=== PATIENT | male | born 1945 | race Caucasian/White ===

== ENCOUNTER → 2016-09-08 | Outpatient (CLI) | payer MEDICARE ==
[~2016-09-08] MED LIST: /GLYB5TA PO; ASPI325T PO; GLUC1000 PO; LISI20TA5 OR; NICO7DIS4 TD; NORV5TAB OR; PLAV75TA2 OR; TOPR50TA PO; ZOCO10TA PO; [UNRECOGNIZED DRUG - CODE] PO
--- NOTE | 2016-09-09 15:23 | REP ---
PET/CT: HISTORY: Initial staging lung cancer. COMPARISONS: Comparison chest CT study August 09, 2016 shows an anterior mediastinal mass 2.8 cm in greatest diameter. TECHNIQUE: 65 minutes following the intravenous injection of a 7.2 mCi dose of F-18 FDG, three-dimensional PET scintigraphy is acquired from the skull base to the proximal thighs. Triplanar noncontrast CT scanning is acquired through the same anatomic range for attenuation correction, and image registration with scan parameters optimized to minimize radiation exposure to the patient. PET scintigraphy and CT datasets were fused and displayed on a workstation with multiplanar and projection display capability. PET/CT FINDINGS: Head and neck soft tissues are unremarkable. The known anterior mediastinal mass is again seen. There is no discernible FDG accumulation within it. Maximum standard uptake value 0.6. No other intrathoracic hypermetabolic uptake is seen. The thyroid gland is seen at the thoracic inlet and appears normal bilaterally. There is no discernible FDG accumulation in the thyroid in this patient either. In the abdomen and pelvis, there is normal hepatic, splenic, gastrointestinal, and genitourinary FDG accumulation. No abnormal hypermetabolic uptake is seen in the abdomen or pelvis. Prostate is somewhat enlarged contains a few dystrophic calcifications. No abnormal adrenal uptake is seen. IMPRESSION: The known anterior mediastinal mass shows no discernible FDG accumulation. This favors a benign or at least nonaggressive etiology. Signed by Danial Kearns MD 09/09/2016 03:30 P
== END ==
LOC: M RAD 11:08
PROVIDERS: ATTEND Physician Assistant Medical
DX: C34.90 Malignant neoplasm of unspecified part of unspecified bronchus or lung (principal)
CPT/HCPCS: 78815; A9552

== ENCOUNTER → 2016-10-11 | Outpatient (CLI) | payer MEDICARE ==
[2016-10-11 10:31] LABS: BASO # 0.1 K/mm3 (0.0-0.2); BASO % 0.8 % (0.0-1.0); EOS # 0.2 K/mm3 (0.0-0.50); EOS % 1.9 % (0.0-3.0); LYMPH # 1.9 K/mm3 (1.5-4.5); LYMPH % 18.7 % (24.0-44.0); MEAN CORPUSCULAR HEMOGLOBIN 30.1 pg (27.0-33.0); MEAN CORPUSCULAR HGB CONC 32.2 g/dl (32.0-36.5); MEAN CORPUSCULAR VOLUME 93.4 fl (80.0-96.0); MONO # 0.6 K/mm3 (0.0-0.8); MONO % 6.1 % (0.0-5.0); NEUTROPHILS # 6.9 K/mm3 (1.8-7.7); NEUTROPHILS % 71.4 % (36.0-66.0); RED CELL DISTRIBUTION WIDTH 13.3 % (11.5-14.5); WHITE BLOOD COUNT 9.7 K/mm3 (4.0-10.0)
[2016-10-11 10:56] LABS: ALBUMIN 3.9 GM/DL (3.2-5.2); ALBUMIN/GLOBULIN RATIO 1.11 (1.00-1.93); ALKALINE PHOSPHATASE 93 U/L (45-117); ALT/SGPT 19 U/L (12-78); ANION GAP 9 MEQ/L (8-16); AST/SGOT 15 U/L (15-37); BILIRUBIN,TOTAL 0.3 MG/DL (0.2-1.0); BLOOD UREA NITROGEN 22 MG/DL (7-18); CALCIUM LEVEL 9.6 MG/DL (8.8-10.2); CARBON DIOXIDE LEVEL 26 MEQ/L (21-32); CHLORIDE LEVEL 109 MEQ/L (98-107); CHOLESTEROL LEVEL 141 MG/DL (<200); CREATININE FOR GFR 0.89 MG/DL (0.70-1.30); GLOMERULAR FILTRATION RATE > 60.0 (>49); GLUCOSE, FASTING 148 MG/DL (80-110); SODIUM LEVEL 144 MEQ/L (136-145); TOTAL PROTEIN 7.4 GM/DL (6.4-8.2); TRIGLYCERIDES LEVEL 105 MG/DL (<150)
== END ==
LOC: M LAB 09:49
PROVIDERS: ATTEND Physician Assistant Medical
DX: E11.9 Type 2 diabetes mellitus without complications (principal)

== ENCOUNTER → 2016-12-02 | Outpatient (CLI) | payer MEDICARE ==
[~2016-12-02] MED LIST changes: +ASPI1TAB PO; +GLIP5TAB15 PO; +METF1000 PO; +METO50TA2 PO; +SIMV40TA2 PO
[2016-12-02 10:15] LABS: ABG BASE EXCESS 0.5 (-2.0-2.0); ABG DEVICE ROOM AIR; ABG HCO3 24.6 MEQ/L (22.0-26.0); ABG PARTIAL PRESSURE CO2 38.3 mmHg (35.0-45.0); ABG STANDARD HCO3 24.9 MEQ/L (22.0-26.0); ABG TOTAL CO2 25.8 MEQ/L (23.0-31.0); ABG pH (ARTERIAL) 7.426 UNITS (7.350-7.450)
[2016-12-02 10:28] LABS: MEAN CORPUSCULAR HEMOGLOBIN 30.3 pg (27.0-33.0); MEAN CORPUSCULAR HGB CONC 33.3 g/dl (32.0-36.5); MEAN CORPUSCULAR VOLUME 91.2 fl (80.0-96.0); WHITE BLOOD COUNT 10.1 K/mm3 (4.0-10.0)
[2016-12-02 10:38] LABS: INR 0.95
[2016-12-02 10:46] LABS: ANION GAP 6 MEQ/L (8-16); BLOOD UREA NITROGEN 11 MG/DL (7-18); CALCIUM LEVEL 9.4 MG/DL (8.8-10.2); CARBON DIOXIDE LEVEL 30 MEQ/L (21-32); CHLORIDE LEVEL 105 MEQ/L (98-107); CREATININE FOR GFR 0.77 MG/DL (0.70-1.30); GLOMERULAR FILTRATION RATE > 60.0 (>49); GLUCOSE, FASTING 158 MG/DL (80-110); POTASSIUM SERUM 4.1 MEQ/L (3.5-5.1); SODIUM LEVEL 141 MEQ/L (136-145)
--- NOTE | 2016-12-02 11:00 | REP ---
Clinical: Abnormality. Technique: PA and lateral. Comparison: 06/11/2016. Findings: Mediastinum and cardiac silhouette are within normal limits and stable. The anterior mediastinal mass on recent chest CT is not visible by x-ray. The lung foster demonstrate chronic changes without acute consolidation, effusion, or pneumothorax. Skeletal structures intact. Impression: Stable changes. No acute cardiopulmonary process. Anterior mediastinal mass on recent chest CT not visible by x-ray. Signed by Pritesh Roberts MD 12/02/2016 10:52 A
--- NOTE | 2016-12-03 22:11 | ECGEPIP ---
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
== END ==
LOC: M ADMPAT 08:22
PROVIDERS: ATTEND Thoracic Surgery (Cardiothoracic Vascular Surgery)
DX: R91.8 Other nonspecific abnormal finding of lung field (principal)

== ENCOUNTER 2016-12-08 06:56 | Inpatient (IN) | payer MEDICARE ==
[2016-12-02 09:58] VITALS: BP 160/84
[~2016-12-08] VITALS: Ht 172.7 cm; Wt 109.8 kg
[2016-12-08] MEDS ORDERED: fentaNYL 250 MCG/5 ML INJECTION (J3010) As Ordered ONE (06:57)
[2016-12-08] MEDS ORDERED: MIDAZOLAM INJ 2 MG/2 ML VIAL (J2250) As Ordered ONE (06:57)
[2016-12-08] MEDS ORDERED: LIDOCAINE 2% INJ 100 MG/5 ML SDV (FOR ANES.) As Ordered ONE (07:01)
[2016-12-08] MEDS ORDERED: ROCURONIUM BROMIDE 50 MG/5 ML VIAL As Ordered ONE ×2 (07:01→08:47)
[2016-12-08] MEDS ORDERED: PROPOFOL 200 MG/20 ML VIAL As Ordered ONE (07:02)
[2016-12-08] MEDS ORDERED: LR 1,000 ML IV SCH ×2 (07:15→11:45)
[2016-12-08] MEDS ORDERED: BUPIVACAINE/EPIN 0.25% 30 ML VIAL As Ordered ONE (07:21)
[2016-12-08] MEDS ORDERED: BUPIVACAINE LIPOSOME/PF 1.3% 20 ML VIAL (13.3MG/ML)(EXPAREL) As Ordered ONE (07:21)
[2016-12-08] MEDS ORDERED: ceFAZolin SOD 1 GM in D5W MINI-BAG PLUS 50 ML IV ONE (07:45)
[2016-12-08] MEDS ORDERED: MUPIROCIN 2% OINT 22 GM TUBE TOP ONE (07:45)
[2016-12-08] MEDS ORDERED: METOPROLOL TART 25 MG TABLET As Ordered ONE (08:08)
[2016-12-08] MEDS ORDERED: MUPIROCIN 2% OINT 22 GM TUBE As Ordered ONE (08:41)
[2016-12-08] MEDS ORDERED: PANTOPRAZOLE 40MG INJ (PROTONIX) (C9113) IV SCH (09:00)
[2016-12-08] MEDS ORDERED: BUPIVACAINE HCL 0.5% 30 ML VIAL As Ordered ONE (09:00)
[2016-12-08] MEDS ORDERED: HYDROmorphone HCL 2 MG/ML 1ML VIAL (J1170) As Ordered ONE (09:14)
[2016-12-08] MEDS ORDERED: ONDANSETRON 4MG/2ML VIAL (J2405) As Ordered ONE (10:24)
[2016-12-08] MEDS ORDERED: GLYCOPYRROLATE INJ 0.2 MG/ML 2 ML VIAL As Ordered ONE (10:24)
[2016-12-08] MEDS ORDERED: KETOROLAC 60 MG/2 ML VIAL (J1885) As Ordered ONE (10:25)
[2016-12-08] MEDS ORDERED: KCL 20MEQ IN D5/NS 1000ML 1,000 ML IV SCH (10:39)
[2016-12-08] MEDS ORDERED: PERCOCET 5MG/325MG TAB PO PRN ×2 (10:45)
[2016-12-08] MEDS ORDERED: NORCO, ANEXSIA 5/325MG TABLET (HYDROcodone/ACETAMINOPHEN) PO PRN (10:45)
[2016-12-08] MEDS ORDERED: BISACODYL 10 MG SUPP PR PRN (10:45)
[2016-12-08] MEDS ORDERED: LEVALBUTEROL 1.25 MG/0.5 ML CONCENTRATE NEB NEB PRN (10:45)
[2016-12-08] MEDS ORDERED: ACETAMINOPHEN TAB 650MG DOSE (2X325MG) PO PRN (10:45)
[2016-12-08] MEDS ORDERED: ONDANSETRON 4MG/2ML VIAL (J2405) IV PRN ×2 (10:45→11:45)
[2016-12-08 11:22] LABS: ABG BASE EXCESS -2.9 (-2.0-2.0); ABG HCO3 25.2 MEQ/L (22.0-26.0); ABG PARTIAL PRESSURE O2 211.7 mmHg (75.0-100.0); ABG STANDARD HCO3 22.1 MEQ/L (22.0-26.0); ABG TOTAL CO2 26.9 MEQ/L (23.0-31.0); ABG pH (ARTERIAL) 7.263 UNITS (7.350-7.450)
[2016-12-08] MEDS ORDERED: HYDROmorphone HCL 1 MG/ML SYRINGE (J1170) IV PRN (11:45)
[2016-12-08] MEDS ORDERED: KETOROLAC 30 MG/ML VIAL (J1885) IV PRN (11:45)
[2016-12-08] MEDS ORDERED: METOCLOPRAMIDE INJ 10MG/2ML VIAL (J2765) IV PRN (11:45)
[2016-12-08] MEDS ORDERED: MEPERIDINE INJ 25 MG/ML VIAL (J2175) IV PRN (11:45)
[2016-12-08] MEDS ORDERED: fentaNYL 100 MCG/2 ML INJECTION (J3010) IV PRN (11:45)
--- NOTE | 2016-12-08 11:45 | RO ---
DATE OF PROCEDURE: 12/08/2016 PREPROCEDURE DIAGNOSIS: Mediastinal mass. POSTPROCEDURE DIAGNOSIS: Mediastinal mass. Final pathology pending. Possibly a dermoid tumor. PROCEDURE: Excision of mediastinal mass via hemisternotomy. SURGEON: Berny Petersen MD CLOTH MEASURER MACHINE: ANESTHESIA: FINDINGS: A mass of approximately 3 x 3 cm, round and about the size of an egg. It had a thick necrotic and/or sebaceous material within it and what we thought could have been hair when cutting through the interior. The entire mass was removed, including its capsule. DESCRIPTION OF PROCEDURE: Procedure note: Under satisfactory general anesthesia, the patient was prepped and draped in the usual sterile fashion. A cj-median sternotomy incision was made in the midline and carried down to the approximate 3rd rib. The subcutaneous tissue was divided by the use of electrocautery, as was the decussation of the pectoralis muscles. The midline of the sternum was found. The sternal notch was dissected, and the sternal ligament was released. Staying very close to the sternum, a passage was developed between the sternal edge and the internal vein. The sternum was then divided down to the 3rd intercostal space. It was T-d off, and bone wax was applied to the sternal edges. The sternal edges were cauterized. A retractor was placed, and the sternum could be retracted. The upper mediastinum was dissected in order to free the innominate vein. The mass was quite evident and quite hard. Dissection was started, and the mass was totally encapsulated and came out fairly easily. Hemostasis was achieved by use of electrocautery. After removal of the mass, it was sent for pathology for examination. A Bharathi-Bobby mediastinal drain was then placed through the upper pole of the incision coming out through the midline of the neck. During the drain placement, a medium-sized vein was encountered in the midline, and this was oversewn with a 4-0 Prolene suture. The drain was placed and cut to an appropriate size to underlie the sternum. The sternal wires were in place through the inferior portion of the uncut sternum which was remaining and led out to the lateral portion of the left side of the sternotomy. Likewise, two more figure-of-8 sternal wires were placed. The wires were then pulled up and twisted and the sternum reapproximated. The pectoralis muscles were closed with a running 0 Vicryl suture, the subcutaneous tissue by the use of a 3-0 Vicryl suture, and the skin by the use of 3-0 Monocryl subcuticular suture. The patient tolerated the procedure well and left the operating room in satisfactory condition to the recovery room.
--- NOTE | 2016-12-08 11:59 | REP ---
CHEST: AP view of the chest is performed. No infiltrate or pneumothorax is seen bilaterally. Cardiomediastinal silhouette is unchanged. There appears to be a surgical drain in the midline. Sternal wires are now present. IMPRESSION: No acute infiltrate or pneumothorax. Midline surgical drain. Signed by Masoud Mendenhall MD 12/08/2016 12:17 P
[2016-12-08 12:16] LABS: ANION GAP 6 MEQ/L (8-16); BLOOD UREA NITROGEN 13 MG/DL (7-18); CALCIUM LEVEL 8.6 MG/DL (8.8-10.2); CARBON DIOXIDE LEVEL 28 MEQ/L (21-32); CHLORIDE LEVEL 107 MEQ/L (98-107); CREATININE FOR GFR 0.87 MG/DL (0.70-1.30); GLOMERULAR FILTRATION RATE > 60.0 (>49); GLUCOSE, FASTING 195 MG/DL (80-110); POTASSIUM SERUM 3.9 MEQ/L (3.5-5.1); SODIUM LEVEL 141 MEQ/L (136-145)
[2016-12-08 12:47] LABS: BASO # 0.1 K/mm3 (0.0-0.2); BASO % 0.7 % (0.0-1.0); EOS # 0.2 K/mm3 (0.0-0.50); EOS % 1.3 % (0.0-3.0); LARGE UNSTAINED CELL # 0.1 K/mm3 (0.0-0.4); LYMPH # 2.3 K/mm3 (1.5-4.5); LYMPH % 18.9 % (24.0-44.0); MEAN CORPUSCULAR HEMOGLOBIN 30.2 pg (27.0-33.0); MEAN CORPUSCULAR HGB CONC 32.8 g/dl (32.0-36.5); MEAN CORPUSCULAR VOLUME 92.1 fl (80.0-96.0); MONO # 0.7 K/mm3 (0.0-0.8); MONO % 5.9 % (0.0-5.0); NEUTROPHILS # 8.2 K/mm3 (1.8-7.7); NEUTROPHILS % 72.1 % (36.0-66.0); PLATELET COUNT, AUTOMATED 177 k/mm3 (150-450); RED CELL DISTRIBUTION WIDTH 13.1 % (11.5-14.5); WHITE BLOOD COUNT 11.3 K/mm3 (4.0-10.0)
[2016-12-08 13:00] VITALS: BP 163/71
[2016-12-08 13:30] VITALS: BP 137/81
[2016-12-08 14:00] VITALS: BP 132/80
[2016-12-08] MEDS: ASPIRIN 81 MG ENTERIC TAB PO SCH (14:25)
[2016-12-08] MEDS: MOM 30ML SUSPENSION UDC PO SCH (14:25)
[2016-12-08] MEDS: PANTOPRAZOLE 40MG TAB (PROTONIX) PO SCH (14:25)
[2016-12-08] MEDS: HEPARIN SOD (PORCINE) 5000 UNITS/ML VIAL SC SCH ×2 (14:26→23:38)
[2016-12-08] MEDS: DOCUSATE SODIUM 100 MG CAP PO SCH ×2 (14:26→23:36)
[2016-12-08] MEDS: LEVALBUTEROL 1.25 MG/0.5 ML CONCENTRATE NEB NEB SCH ×2 (15:02→20:31)
[2016-12-08 16:00] VITALS: BP 145/74
[2016-12-08] MEDS: KETOROLAC 30 MG/ML VIAL (J1885) IV SCH ×2 (16:10→23:38)
[2016-12-08] MEDS: ceFAZolin SOD 1 GM in D5W MINI-BAG PLUS 50 ML IV SCH (16:10)
[2016-12-08] MEDS ORDERED: GLUCAGON FOR INJ 1 MG VIAL (J1610) SC PRN (17:45)
[2016-12-08] MEDS ORDERED: DEXTROSE 50% 50 ML SYRINGE IV PRN (17:45)
[2016-12-08] MEDS ORDERED: GLUCOSE 4 GM CHEW TABLET PO PRN (17:45)
[2016-12-08] MEDS: glipiZIDE XL 5 MG TABCR PO SCH (17:54)
[2016-12-08] MEDS ORDERED: SLF 3 ML SYR IV PRN (19:00)
[2016-12-08 20:00] VITALS: BP 148/72
[2016-12-08] MEDS ORDERED: metFORMIN (GLUCOPHAGE) 1000 MG TABLET PO SCH (21:00)
[2016-12-08] MEDS: HumaLOG INSULIN (NovoLOG) PER UNIT SC SCH (21:00)
[2016-12-08] MEDS: SIMVASTATIN 40 MG TAB PO SCH (23:37)
[2016-12-08] MEDS: METOPROLOL TART 50 MG TAB PO SCH (23:37)
[2016-12-08] MEDS: SLF 3 ML SYR IV SCH (23:39)
[2016-12-08 23:59] VITALS: BP 164/88
[2016-12-09] MEDS: ceFAZolin SOD 1 GM in D5W MINI-BAG PLUS 50 ML IV SCH ×3 (01:02→16:24)
[2016-12-09] MEDS: LEVALBUTEROL 1.25 MG/0.5 ML CONCENTRATE NEB NEB SCH ×4 (02:16→20:51)
[2016-12-09 04:45] VITALS: BP 152/84
[2016-12-09] MEDS: KETOROLAC 30 MG/ML VIAL (J1885) IV SCH ×4 (05:32→23:25)
[2016-12-09] MEDS: SLF 3 ML SYR IV SCH ×3 (05:32→23:25)
[2016-12-09 05:38] LABS: BASO # 0.1 K/mm3 (0.0-0.2); BASO % 0.5 % (0.0-1.0); EOS # 0.1 K/mm3 (0.0-0.50); EOS % 0.8 % (0.0-3.0); LARGE UNSTAINED CELL # 0.1 K/mm3 (0.0-0.4); LYMPH # 1.9 K/mm3 (1.5-4.5); LYMPH % 13.1 % (24.0-44.0); MEAN CORPUSCULAR HEMOGLOBIN 29.6 pg (27.0-33.0); MEAN CORPUSCULAR HGB CONC 32.2 g/dl (32.0-36.5); MEAN CORPUSCULAR VOLUME 91.8 fl (80.0-96.0); MONO # 0.9 K/mm3 (0.0-0.8); MONO % 6.8 % (0.0-5.0); NEUTROPHILS # 10.7 K/mm3 (1.8-7.7); NEUTROPHILS % 77.8 % (36.0-66.0); PLATELET COUNT, AUTOMATED 175 k/mm3 (150-450); RED CELL DISTRIBUTION WIDTH 13.1 % (11.5-14.5); WHITE BLOOD COUNT 13.8 K/mm3 (4.0-10.0)
[2016-12-09 05:46] LABS: ABG BASE EXCESS -1.4 (-2.0-2.0); ABG HCO3 24.1 MEQ/L (22.0-26.0); ABG PARTIAL PRESSURE O2 55.8 mmHg (75.0-100.0); ABG STANDARD HCO3 23.1 MEQ/L (22.0-26.0); ABG TOTAL CO2 25.4 MEQ/L (23.0-31.0); ABG pH (ARTERIAL) 7.366 UNITS (7.350-7.450)
[2016-12-09 05:54] LABS: ANION GAP 5 MEQ/L (8-16); BLOOD UREA NITROGEN 10 MG/DL (7-18); CALCIUM LEVEL 8.8 MG/DL (8.8-10.2); CARBON DIOXIDE LEVEL 29 MEQ/L (21-32); CHLORIDE LEVEL 105 MEQ/L (98-107); CREATININE FOR GFR 0.94 MG/DL (0.70-1.30); GLOMERULAR FILTRATION RATE > 60.0 (>49); GLUCOSE, FASTING 169 MG/DL (80-110); POTASSIUM SERUM 4.6 MEQ/L (3.5-5.1); SODIUM LEVEL 139 MEQ/L (136-145)
[2016-12-09 08:00] VITALS: BP 175/78
--- NOTE | 2016-12-09 08:26 | REP ---
PA and lateral chest: Comparison is 2016. By CT the patient has a mediastinal mass. There is not visible and PA and lateral plain films. On the current study there is a mediastinal chest tube, not present previously. Cardiac size is mildly enlarged, unchanged. There are sternotomy wires, not present previously. The lung foster are clear. The mendoza and bony thorax are unremarkable. Impression: Chronic cardiomegaly. Lung foster are clear. New sternotomy wires and mediastinal chest tube. Signed by Masoud Barraza MD 12/09/2016 08:19 A
[2016-12-09] MEDS: MOM 30ML SUSPENSION UDC PO SCH (08:35)
[2016-12-09] MEDS: HumaLOG INSULIN (NovoLOG) PER UNIT SC SCH ×4 (08:35→20:44)
[2016-12-09] MEDS: HEPARIN SOD (PORCINE) 5000 UNITS/ML VIAL SC SCH ×2 (08:36→20:44)
[2016-12-09] MEDS: ASPIRIN 81 MG ENTERIC TAB PO SCH (08:36)
[2016-12-09] MEDS: metFORMIN (GLUCOPHAGE) 1000 MG TABLET PO SCH ×2 (08:36→18:19)
[2016-12-09] MEDS: PANTOPRAZOLE 40MG TAB (PROTONIX) PO SCH (08:36)
[2016-12-09] MEDS: DOCUSATE SODIUM 100 MG CAP PO SCH ×2 (08:36→20:39)
[2016-12-09] MEDS: glipiZIDE XL 5 MG TABCR PO SCH ×2 (08:37→18:19)
[2016-12-09] MEDS: METOPROLOL TART 50 MG TAB PO SCH ×2 (08:37→20:44)
[2016-12-09 12:00] VITALS: BP 140/69
[2016-12-09 16:00] VITALS: BP 175/85
[2016-12-09] MEDS ORDERED: FUROSEMIDE 40 MG TAB PO ONE (16:30)
[2016-12-09] MEDS: SIMVASTATIN 40 MG TAB PO SCH (20:44)
[2016-12-09 23:45] VITALS: BP 165/80
[2016-12-10] MEDS: LEVALBUTEROL 1.25 MG/0.5 ML CONCENTRATE NEB NEB SCH ×3 (01:59→13:21)
[2016-12-10] MEDS: KETOROLAC 30 MG/ML VIAL (J1885) IV SCH ×2 (04:20→10:19)
[2016-12-10] MEDS: SLF 3 ML SYR IV SCH (04:21)
[2016-12-10 04:24] VITALS: BP 150/76
[2016-12-10 05:18] LABS: BASO % 0.2 % (0.0-1.0); EOS # 0.1 K/mm3 (0.0-0.50); EOS % 0.6 % (0.0-3.0); LARGE UNSTAINED CELL # 0.1 K/mm3 (0.0-0.4); LYMPH # 1.7 K/mm3 (1.5-4.5); LYMPH % 12.2 % (24.0-44.0); MEAN CORPUSCULAR HEMOGLOBIN 30.3 pg (27.0-33.0); MEAN CORPUSCULAR HGB CONC 33.1 g/dl (32.0-36.5); MEAN CORPUSCULAR VOLUME 91.5 fl (80.0-96.0); MONO % 6.8 % (0.0-5.0); NEUTROPHILS # 11.2 K/mm3 (1.8-7.7); NEUTROPHILS % 79.3 % (36.0-66.0); PLATELET COUNT, AUTOMATED 162 k/mm3 (150-450); RED CELL DISTRIBUTION WIDTH 12.9 % (11.5-14.5); WHITE BLOOD COUNT 14.1 K/mm3 (4.0-10.0)
[2016-12-10 05:28] LABS: ANION GAP 10 MEQ/L (8-16); BLOOD UREA NITROGEN 12 MG/DL (7-18); CALCIUM LEVEL 8.6 MG/DL (8.8-10.2); CARBON DIOXIDE LEVEL 24 MEQ/L (21-32); CHLORIDE LEVEL 105 MEQ/L (98-107); CREATININE FOR GFR 0.67 MG/DL (0.70-1.30); GLOMERULAR FILTRATION RATE > 60.0 (>49); GLUCOSE, FASTING 129 MG/DL (80-110); POTASSIUM SERUM 3.4 MEQ/L (3.5-5.1); SODIUM LEVEL 139 MEQ/L (136-145)
[2016-12-10 08:00] VITALS: BP 152/88
--- NOTE | 2016-12-10 08:01 | REP ---
PA and lateral chest: Comparison is 12/09/2016. There are sternotomy wires. The mediastinal chest tube has been removed. Lung foster remain clear. Chronic cardiomegaly is again noted, unchanged. The mendoza, mediastinum, and bony thorax are unremarkable. Signed by Masoud Barraza MD 12/10/2016 07:52 A
[2016-12-10] MEDS: glipiZIDE XL 5 MG TABCR PO SCH (08:49)
[2016-12-10] MEDS: PANTOPRAZOLE 40MG TAB (PROTONIX) PO SCH (08:49)
[2016-12-10 08:51] VITALS: BP 152/88
[2016-12-10] MEDS: metFORMIN (GLUCOPHAGE) 1000 MG TABLET PO SCH (08:51)
[2016-12-10] MEDS: METOPROLOL TART 50 MG TAB PO SCH (08:51)
[2016-12-10] MEDS: ASPIRIN 81 MG ENTERIC TAB PO SCH (08:51)
[2016-12-10] MEDS: HumaLOG INSULIN (NovoLOG) PER UNIT SC SCH ×2 (08:52→12:39)
[2016-12-10] MEDS: HEPARIN SOD (PORCINE) 5000 UNITS/ML VIAL SC SCH (08:52)
[2016-12-10] MEDS: MOM 30ML SUSPENSION UDC PO SCH (08:59)
[2016-12-10] MEDS: DOCUSATE SODIUM 100 MG CAP PO SCH (08:59)
[2016-12-10 12:00] VITALS: BP 150/84
[2016-12-10] MEDS ORDERED: POTASSIUM CHLORIDE 10 MEQ SR TABLET PO ONE (12:00)
--- NOTE | 2016-12-10 18:36 | DSES ---
DATE OF ADMISSION: 12/08/2016 DATE OF DISCHARGE: 12/10/2016 DISCHARGE DIAGNOSES: 1. Dermoid cyst, mediastinum. 2. Peripheral vascular disease. 3. Atherosclerosis. 4. Diabetes. 5. Hypertension. HOSPITALIZATION COURSE: The patient is a 71-year-old white male who was found to have an anterior mediastinal mass on a CT scan in 2015. It was never clear to me by the ECG scan was undertaken. Nonetheless, a 3 to 4 cm mediastinal mass, anteriorly, was found. He had no fever, chills, or sweats, but he had a 10 to 15 pound weight loss over the last 6 months. He was not trying to lose weight. His past medical history was significant for a left sided CVA in 2009 where he had some residual weakness on the left. He was noted to have extensive coronary artery disease on the CT scan and was evaluated by cardiology and was found to be an acceptable risk for surgery. He was therefore taken to the operating room where a 6 x 5 x 2 cm cyst was removed. There were good planes between it and the pericardium. The left internal mammillary artery was avoided. It was accomplished through a hemisternotomy and to the left. The pathology was returned as a dermoid cyst. There was no malignancy noted. The patient's Bharathi-Bobby drained was removed on the first postoperative day. He is being discharged today on his home medications, which include: - aspirin 81 mg daily - vitamin D 5000 units daily - glipizide 10 mg twice a day - metformin 1000 mg twice a day - metoprolol 50 mg twice a day - simvastatin 40 mg at night He had almost no pain after surgery, having been injected with Exparel. He was not placed on any pain medications other than Tylenol as needed by mouth. He will return to see me in one week with in postoperative followup with a chest x-ray. His discharge hemoglobin and hematocrit are 15.1 and 45.4 with a discharge white count of 14.1. Discharge BUN and creatinine are 12 and 0.67.
== END 2016-12-10 13:37 | disposition home or self-care (01) | DRG 167 ==
LOC: M OR 06:56 → M PCU 13:08
PROVIDERS: ADMIT Thoracic Surgery (Cardiothoracic Vascular Surgery); ATTEND Thoracic Surgery (Cardiothoracic Vascular Surgery)
PROC: 0WBC0ZX Excision of Mediastinum, Open Approach, Diagnostic (ICD-10-PCS; principal; 2016-12-08 08:30)
DX: D15.2 Benign neoplasm of mediastinum (principal); I69.354 Hemiplegia and hemiparesis following cerebral infarction affecting left non-dominant side; E11.9 Type 2 diabetes mellitus without complications; I10 Essential (primary) hypertension; I70.90 Unspecified atherosclerosis; I73.9 Peripheral vascular disease, unspecified; F17.210 Nicotine dependence, cigarettes, uncomplicated; Z79.899 Other long term (current) drug therapy; Z79.82 Long term (current) use of aspirin; Z79.84 Long term (current) use of oral hypoglycemic drugs

== ENCOUNTER → 2017-01-06 | Outpatient (CLI) | payer MEDICARE ==
[2017-01-06 11:10] LABS: ALBUMIN 3.6 GM/DL (3.2-5.2); ALBUMIN/GLOBULIN RATIO 1.06 (1.00-1.93); ALKALINE PHOSPHATASE 133 U/L (45-117); ALT/SGPT 17 U/L (12-78); ANION GAP 9 MEQ/L (8-16); AST/SGOT 10 U/L (15-37); BILIRUBIN,TOTAL 0.4 MG/DL (0.2-1.0); BLOOD UREA NITROGEN 11 MG/DL (7-18); CALCIUM LEVEL 8.9 MG/DL (8.8-10.2); CARBON DIOXIDE LEVEL 28 MEQ/L (21-32); CHLORIDE LEVEL 105 MEQ/L (98-107); CHOLESTEROL LEVEL 159 MG/DL (<200); CREATININE FOR GFR 0.84 MG/DL (0.70-1.30); GLOMERULAR FILTRATION RATE > 60.0 (>49); GLUCOSE, FASTING 133 MG/DL (80-110); GLUCOSE,RANDOM 133 MG/DL (LESS THAN 200); POTASSIUM SERUM 4.3 MEQ/L (3.5-5.1); SODIUM LEVEL 142 MEQ/L (136-145); TRIGLYCERIDES LEVEL 128 MG/DL (<150)
== END ==
LOC: M LAB 09:36
PROVIDERS: ATTEND Physician Assistant Medical
DX: E11.9 Type 2 diabetes mellitus without complications (principal)

== ENCOUNTER → 2017-02-21 | Outpatient (CLI) | payer MEDICARE ==
[2017-02-21 10:49] LABS: ALBUMIN 3.6 GM/DL (3.2-5.2); ALBUMIN/GLOBULIN RATIO 1.06 (1.00-1.93); ALKALINE PHOSPHATASE 107 U/L (45-117); ALT/SGPT 19 U/L (12-78); ANION GAP 7 MEQ/L (8-16); AST/SGOT 10 U/L (15-37); BILIRUBIN,TOTAL 0.4 MG/DL (0.2-1.0); BLOOD UREA NITROGEN 12 MG/DL (7-18); CALCIUM LEVEL 9.6 MG/DL (8.8-10.2); CARBON DIOXIDE LEVEL 28 MEQ/L (21-32); CHLORIDE LEVEL 107 MEQ/L (98-107); CHOLESTEROL LEVEL 156 MG/DL (<200); CREATININE FOR GFR 0.97 MG/DL (0.70-1.30); GLOMERULAR FILTRATION RATE > 60.0 (>49); GLUCOSE, FASTING 128 MG/DL (80-110); POTASSIUM SERUM 4.3 MEQ/L (3.5-5.1); SODIUM LEVEL 142 MEQ/L (136-145); TRIGLYCERIDES LEVEL 178 MG/DL (<150)
== END ==
LOC: M LAB 08:37
PROVIDERS: ATTEND Physician Assistant Medical
DX: E11.9 Type 2 diabetes mellitus without complications (principal)

== ENCOUNTER → 2017-03-10 | Outpatient (REF) | payer MEDICARE ==
[~2017-03-10] MED LIST changes: +BACT800T5 PO; +GLIP1TAB49 PO; +GLIP1TAB51 PO; -GLIP5TAB15 PO; +JARD1TAB3 PO; -METF1000 PO; +METF10004 PO; -METO50TA2 PO; +METO50TA7 PO; +PROAAER10; +TYLE650T35 PO
== END ==
LOC: M SMT 17:31
PROVIDERS: ATTEND Nurse Practitioner Women's Health
DX: R35.0 Frequency of micturition (principal)
CPT/HCPCS: 51798; 81001; 87086; G0463

== ENCOUNTER → 2017-04-20 | Outpatient (CLI) | payer MEDICARE ==
[2017-04-20 08:04] LABS: MEAN CORPUSCULAR HEMOGLOBIN 29.9 pg (27.0-33.0); MEAN CORPUSCULAR VOLUME 90.7 fl (80.0-96.0); RED CELL DISTRIBUTION WIDTH 13.5 % (11.5-14.5); WHITE BLOOD COUNT 11.2 K/mm3 (4.0-10.0)
[2017-04-20 08:09] LABS: INR 0.87
[2017-04-20 08:31] LABS: ANION GAP 6 MEQ/L (8-16); BLOOD UREA NITROGEN 12 MG/DL (7-18); CARBON DIOXIDE LEVEL 31 MEQ/L (21-32); CHLORIDE LEVEL 110 MEQ/L (98-107); CREATININE FOR GFR 0.86 MG/DL (0.70-1.30); GLOMERULAR FILTRATION RATE > 60.0 (>49); GLUCOSE, FASTING 89 MG/DL (80-110); POTASSIUM SERUM 4.8 MEQ/L (3.5-5.1); SODIUM LEVEL 147 MEQ/L (136-145)
--- NOTE | 2017-04-20 08:51 | REP ---
PA and lateral chest: Comparison is 01/17/2017. The lung foster are clear. Cardiac size is enlarged, unchanged. Sternotomy wires are again identified. The mendoza, mediastinum, and bony thorax are unremarkable. Impression: Chronic cardiomegaly and sternotomy wires. The lung foster are clear. Signed by Masoud Barraza MD 04/20/2017 08:43 A
[2017-04-20 11:18] LABS: YEAST LIKE CELL URINE AUTO SMALL
--- NOTE | 2017-04-21 19:49 | ECGEPIP ---
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
== END ==
LOC: M LAB 06:56
PROVIDERS: ATTEND Urology
DX: N40.1 Benign prostatic hyperplasia with lower urinary tract symptoms (principal); Z79.01 Long term (current) use of anticoagulants

== ENCOUNTER 2017-05-03 13:15 | Inpatient (IN) | payer MEDICARE ==
[~2017-05-03] VITALS: Ht 172.7 cm; Wt 104.9 kg
[~2017-05-03 13:15] MED LIST changes: -BACT800T5 PO; -PROAAER10; -TYLE650T35 PO
--- NOTE | 2017-06-03 20:49 | HPE ---
DATE OF ADMISSION: 06/07/2017 REASON FOR ADMISSION: Severe lower urinary tract symptoms failing medical therapy. He has a severely large middle lobe. CURRENT MEDICATIONS: - Trulicity - tamsulosin - simvastatin - glipizide - metoprolol - metformin - Jardiance - nicotine patch - baby aspirin PAST MEDICAL HISTORY: Diabetes and BPH. PAST SURGICAL HISTORY: None. FAMILY HISTORY: Mother and father are both . ALLERGIES: No known drug allergies. REVIEW OF SYSTEMS: We have reviewed the 14 review of systems and there are no other symptomatologies other than the history of present illness. Vital signs are stable. EXAMINATION: GENERAL APPEARANCE: Alert and oriented times three, in no apparent distress. HEENT: Unremarkable. EXTREMITIES: No edema, clubbing, cyanosis. HEART: Rate strong and regular, no murmur. LUNGS: Clear to auscultate bilaterally. ASSESSMENT: Benign prostatic hyperplasia with lower urinary tract symptoms. The patient has severe lower urinary tract symptoms (LUTS) and severe BPH and he would like to have a robotic-assisted simple prostatectomy. Risks were reviewed including bleeding, pain, urinary retention and incontinence. Medical clearance was done.
[2017-06-07] MEDS ORDERED: PROAAER10 (10:24)
[2017-06-07] MEDS ORDERED: LR 1,000 ML IV ONE (11:00)
[2017-06-07] MEDS ORDERED: METHYLENE BLUE 0.5% (5MG/ML) 10 ML AMP (PROVAYBLUE)(Q9968 PER 1MG) As Ordered ONE (11:07)
[2017-06-07] MEDS ORDERED: PHENYLephrine HCL 500 MCG/5 ML (100MCG/ML) SYRINGE (J2370) As Ordered ONE (12:32)
[2017-06-07] MEDS ORDERED: ePHEDrine SULFATE 25 MG/5 ML(5MG/ML) SYRINGE As Ordered ONE (12:32)
[2017-06-07] MEDS ORDERED: MIDAZOLAM INJ 2 MG/2 ML VIAL (J2250) As Ordered ONE (12:32)
[2017-06-07] MEDS ORDERED: PROPOFOL 200 MG/20 ML VIAL As Ordered ONE ×2 (12:32→12:59)
[2017-06-07] MEDS ORDERED: KETOROLAC 60 MG/2 ML VIAL (J1885) As Ordered ONE (12:32)
[2017-06-07] MEDS ORDERED: dexameTHASONE 4 MG/ML 1ML VIAL (J1100) As Ordered ONE (12:32)
[2017-06-07] MEDS ORDERED: HYDROmorphone HCL 2 MG/ML 1ML VIAL (J1170) As Ordered ONE (12:32)
[2017-06-07] MEDS ORDERED: ROCURONIUM BROMIDE 50 MG/5 ML VIAL/SYRINGE As Ordered ONE ×2 (12:32→13:17)
[2017-06-07] MEDS ORDERED: LIDOCAINE 2% INJ 100 MG/5 ML SDV (FOR ANES.) As Ordered ONE (12:32)
[2017-06-07] MEDS ORDERED: ONDANSETRON 4MG/2ML VIAL (J2405) As Ordered ONE (12:32)
[2017-06-07] MEDS ORDERED: fentaNYL 100 MCG/2 ML INJECTION (J3010) As Ordered ONE (12:32)
[2017-06-07] MEDS ORDERED: NEOSTIGMINE 10 MG/10 ML VIAL (J2710) As Ordered ONE (15:21)
[2017-06-07] MEDS ORDERED: GLYCOPYRROLATE INJ 0.2 MG/ML 2 ML VIAL As Ordered ONE (15:21)
[2017-06-07] MEDS ORDERED: KETOROLAC 30 MG/ML VIAL (J1885) As Ordered ONE (16:12)
[2017-06-07] MEDS ORDERED: METOPROLOL 5 MG/5 ML VIAL As Ordered ONE (16:14)
[2017-06-07] MEDS ORDERED: LR 1,000 ML IV SCH (16:15)
[2017-06-07] MEDS: KETOROLAC 30 MG/ML VIAL (J1885) IV SCH (16:15)
[2017-06-07] MEDS ORDERED: ONDANSETRON 4MG/2ML VIAL (J2405) IV PRN ×2 (16:15→16:30)
[2017-06-07] MEDS ORDERED: HYDROmorphone HCL 1 MG/ML SYRINGE (J1170) IV PRN (16:15)
[2017-06-07] MEDS ORDERED: fentaNYL 100 MCG/2 ML INJECTION (J3010) IV PRN (16:15)
[2017-06-07] MEDS ORDERED: PERCOCET 5MG/325MG TAB PO PRN (16:15)
[2017-06-07] MEDS ORDERED: METOPROLOL 5 MG/5 ML VIAL IV SCH (16:30)
[2017-06-07] MEDS ORDERED: oxyCODONE 5MG TAB PO PRN (16:30)
[2017-06-07 16:46] LABS: MEAN CORPUSCULAR HGB CONC 32.8 g/dl (32.0-36.5); MEAN CORPUSCULAR VOLUME 91.5 fl (80.0-96.0); RED CELL DISTRIBUTION WIDTH 13.7 % (11.5-14.5); WHITE BLOOD COUNT 13.4 10^3/uL (4.0-10.0)
[2017-06-07] MEDS: METOPROLOL 5 MG/5 ML VIAL IV SCH ×8 (17:00→17:35)
[2017-06-07 17:05] LABS: ANION GAP 6 MEQ/L (8-16); BLOOD UREA NITROGEN 9 MG/DL (7-18); CARBON DIOXIDE LEVEL 27 MEQ/L (21-32); CHLORIDE LEVEL 107 MEQ/L (98-107); CREATININE FOR GFR 1.06 MG/DL (0.70-1.30); GLOMERULAR FILTRATION RATE > 60.0 (>49); GLUCOSE, FASTING 164 MG/DL (80-110); POTASSIUM SERUM 4.5 MEQ/L (3.5-5.1); SODIUM LEVEL 140 MEQ/L (136-145)
[2017-06-07 18:30] VITALS: BP 141/66
[2017-06-07] MEDS: KCL 20MEQ in NS 1000ML 1,000 ML IV SCH (19:18)
[2017-06-07 19:32] VITALS: BP 148/81
[2017-06-07 20:50] VITALS: BP 154/72
[2017-06-07] MEDS ORDERED: metFORMIN (GLUCOPHAGE) 1000 MG TABLET PO ONE (21:30)
[2017-06-07 22:00] VITALS: BP 131/77
[2017-06-07] MEDS: LevoFLOXacin 500 MG TABLET PO SCH (22:43)
[2017-06-07] MEDS: METOPROLOL TART 50 MG TAB PO SCH (22:44)
[2017-06-07] MEDS: ACETAMINOPHEN 650MG ER TAB (TYLENOL ARTHRITIS) PO SCH (22:45)
[2017-06-07 23:47] VITALS: BP 138/67
[2017-06-08] MEDS: KCL 20MEQ in NS 1000ML 1,000 ML IV SCH (03:59)
[2017-06-08 05:10] VITALS: BP 129/65
[2017-06-08] MEDS: ACETAMINOPHEN 650MG ER TAB (TYLENOL ARTHRITIS) PO SCH ×3 (05:41→21:58)
[2017-06-08 08:00] VITALS: BP_SYST 118; BP_SYST 130; BP_DIAS 58; BP_DIAS 90
[2017-06-08] MEDS: metFORMIN (GLUCOPHAGE) 1000 MG TABLET PO SCH ×2 (08:19→17:13)
[2017-06-08] MEDS: PANTOPRAZOLE 40MG INJ (PROTONIX) (C9113) IV SCH (08:19)
[2017-06-08] MEDS: KETOROLAC 30 MG/ML VIAL (J1885) IV SCH ×2 (08:19→17:14)
[2017-06-08] MEDS: glipiZIDE XL 5 MG TABCR PO SCH (08:20)
[2017-06-08] MEDS: METOPROLOL TART 50 MG TAB PO SCH ×2 (08:20→21:59)
[2017-06-08 12:00] VITALS: BP 133/88
--- NOTE | 2017-06-08 15:04 | RO ---
DATE OF PROCEDURE: 06/07/2017 PREOPERATIVE DIAGNOSIS: Lower urinary tract symptoms due to severe prostatic enlargement. POSTOPERATIVE DIAGNOSIS: Lower urinary tract symptoms due to severe prostatic enlargement. SURGERY PERFORMED: Robotic-assisted simple prostatectomy. SURGEON: Carrillo Brenner MD CONTROL SYSTEMS DRAFTING OFFICER: Manjula Johnston ANESTHESIA: General. FINDINGS: Severe prostatic enlargement with large, giant middle lobe of the prostate. ESTIMATED BLOOD LOSS: 100 mL. COMPLICATIONS: None. HISTORY OF PRESENT ILLNESS: 71-year-old male patient that has severe lower urinary tract symptoms due to severe prostatic enlargement. A cystoscopy confirmed a very large, giant middle lobe of the prostate protruding into the bladder and obstructing the bladder neck. For this reason, the patient has selected robotic simple prostatectomy. PROCEDURE DESCRIPTION: In a patient under general anesthesia in supine modified low lithotomy position with orogastric tube draining gastric contents, after prepping and draping the area of concern, which included the entire abdomen and genitalia, we started by placing a #16-Guamanian Marcum catheter in the bladder and put in 10 mL into the balloon of the Marcum. We then proceeded to do an incision supraumbilically, transverse incision around the umbilicus for about 3 cm in length. Through this incision, we opened the peritoneal cavity and placed a 12 mm balloon trocar. Through this trocar, we insufflated the abdomen with CO2 at a maximum pressure of 50 on high flow. We then proceeded to place the patient in a steep Trendelenburg position. We then proceeded to actually put the other trocars in a fan-shaped manner, two robotic metallic trocars 8 mm in diameter by each other by 6 cm in distance. On the left side, we placed a 12 mm VersaStep in the midclavicular line and, 8 cm away from this one, an 8 mm metallic trocar also. We then proceeded to dock the robot. We used monopolar scissors on the left arm, bipolar PK on the right, and fenestrated forceps on the third arm. We then proceeded by dissecting the urachus and dropping the bladder. We entered the Retzius space and identified the bladder neck and did a transverse incision at the level of the bladder for about 7 cm in length. Through this incision, we opened the bladder and we identified the balloon of the Marcum catheter and a very giant middle lobe of the prostate protruding into the bladder and covering the whole trigone. We then placed a CT-1 needle and a #0 Vicryl to actually put a stitch on the middle lobe and cut the needle and took it out and then grabbed, with the third arm, the middle lobe by pulling the stitch and mobilizing the middle lobe up, right, and left. Once we placed it anteriorly with the third arm, we retracted the middle lobe anteriorly. We could actually visualize the trigone of the bladder and both ureteral orifices excreting clear urine. At that moment in time, with monopolar scissors, we did an incision at the level of the bladder neck behind the middle lobe and dissected up to the capsule of the prostate. We did a formal adenomectomy with monopolar scissors and bipolar PK. We dissected the adenoma in the middle lobe completely, dissected the lateral lobes also and the anterior lobes also. We then cut at the level of the verumontanum the adenoma and then placed it into a 10 mm Endo Catch bag. With bipolar PK, we secured bleeding vessels and then we trigonized the bladder neck with a running #2-0 catgut chromic we cut to 6 inches starting at 5-o'clock and ending up in the middle at 6-o'clock and also at 7-o'clock in the middle in a running fashion. We trigonized the whole entire bladder neck, securing hemostasis with this trigonization, with a chromic #2-0 and an SH needle in a running fashion starting at 5-o'clock and 7-o'clock and tying the knots in the middle at 6-o'clock. We secured that the ureters were free of any type of stitches by placing indigo carmine and seeing the indigo carmine actually going, urinating through both ureters. We then proceeded to place Floseal inside the prostatic fossa and then passed a #20-Guamanian Marcum catheter, inflated the balloon to 20 mL. We then closed the bladder incision in two layers with a Quill stitch #2-0 absorbable barbed suture starting on the left side and running it in one layer and then second layer and then also starting with another Quill stitch running one layer and second layer with the other needle and tying both at the midline. We then inflated the bladder to 200 mL. The closure of the bladder was water tight. At that moment in time we took all the needles out and undocked the third arm and placed a round #15 Alvin drain on top of the bladder. All the instruments were removed, and the robot was undocked. We took all the trocars out and, in the Endo Catch bag, we took the specimen through the midline incision and sent it for permanent pathology analysis as prostatic adenoma. We then proceeded to actually close the incision in the midline with PDS #1 times six in separate stitches and then proceeded also to actually close, in subcuticular stitches with #4-0 Monocryl, the skin incisions and covered it with Mastisol, Steri-Strips, Telfa, and Tegaderm. The drain was placed to bulb suction and secured to the skin with #3-0 nylon. PLAN: The patient will pass to recovery with a Marcum catheter, #22-Guamanian, three-way with irrigation. We will wean off the irrigation once the urine is clear; and once the urine is clear and patient is tolerating regular diet, he will be discharged home with a Marcum catheter, which will remain in place for at least 7-10 days. There were no complications during surgery.
[2017-06-08 16:00] VITALS: BP 131/87
[2017-06-08] MEDS: LevoFLOXacin 500 MG TABLET PO SCH (17:13)
[2017-06-08 20:00] VITALS: BP 142/68
[2017-06-08] MEDS ORDERED: SLF 3 ML SYR IV PRN (23:30)
[2017-06-09] VITALS: BP 140/75
[2017-06-09 04:00] VITALS: BP 150/74
[2017-06-09 05:24] LABS: MEAN CORPUSCULAR HEMOGLOBIN 29.8 pg (27.0-33.0); MEAN CORPUSCULAR HGB CONC 32.7 g/dl (32.0-36.5); MEAN CORPUSCULAR VOLUME 91.3 fl (80.0-96.0); RED CELL DISTRIBUTION WIDTH 13.5 % (11.5-14.5); WHITE BLOOD COUNT 15.1 10^3/uL (4.0-10.0)
[2017-06-09 05:47] LABS: ANION GAP 11 MEQ/L (8-16); BLOOD UREA NITROGEN 13 MG/DL (7-18); CALCIUM LEVEL 8.3 MG/DL (8.8-10.2); CARBON DIOXIDE LEVEL 23 MEQ/L (21-32); CHLORIDE LEVEL 109 MEQ/L (98-107); CREATININE FOR GFR 0.71 MG/DL (0.70-1.30); GLOMERULAR FILTRATION RATE > 60.0 (>49); GLUCOSE, FASTING 117 MG/DL (80-110); POTASSIUM SERUM 3.9 MEQ/L (3.5-5.1); SODIUM LEVEL 143 MEQ/L (136-145)
[2017-06-09] MEDS: ACETAMINOPHEN 650MG ER TAB (TYLENOL ARTHRITIS) PO SCH ×2 (06:03→13:18)
[2017-06-09] MEDS: SLF 3 ML SYR IV SCH ×2 (06:03→13:18)
[2017-06-09 08:00] VITALS: BP 165/77
[2017-06-09] MEDS: PANTOPRAZOLE 40MG INJ (PROTONIX) (C9113) IV SCH (08:08)
[2017-06-09 08:09] VITALS: BP 165/77
[2017-06-09] MEDS: glipiZIDE XL 5 MG TABCR PO SCH (08:09)
[2017-06-09] MEDS: metFORMIN (GLUCOPHAGE) 1000 MG TABLET PO SCH ×2 (08:09→17:53)
[2017-06-09] MEDS: METOPROLOL TART 50 MG TAB PO SCH (08:09)
[2017-06-09] MEDS ORDERED: INFLUENZA VIRUS VACCINE HIGH DOSE 0.5 ML SYRINGE (90662) IM ONE (09:00)
[2017-06-09 12:00] VITALS: BP 148/70
[2017-06-09 16:00] VITALS: BP 175/84
[2017-06-09] MEDS ORDERED: BACT800T5 PO (16:30)
[2017-06-09] MEDS ORDERED: TYLE650T35 PO (16:30)
--- NOTE | 2017-06-09 16:49 | DSES ---
DATE OF ADMISSION: 06/07/2017 DATE OF DISCHARGE: 06/09/2017 ADMISSION DIAGNOSIS: Severe lower urinary tract symptoms due to severe prostatic enlargement. POSTOPERATIVE DIAGNOSIS: Severe lower urinary tract symptoms due to severe prostatic enlargement. DISCHARGE DIAGNOSIS: Severe lower urinary tract symptoms due to severe prostatic enlargement. SURGERY PERFORMED: Robotic-assisted simple prostatectomy. ADMITTING SURGEON: Dr. Carrillo Brenner DISCHARGE SURGEON: Dr. Carrillo Brenner SURGERY PERFORMED BY: Dr. Carrillo Brenner HISTORY OF PRESENT ILLNESS: This is a 71-year-old male patient with severe lower urinary tract symptoms due to severe enlargement of the prostate. For this reason, he has consented for robotic-assisted simple prostatectomy. After this procedure carried out on 06/07/2017 without complications, he was admitted to the hospital. HOSPITAL COURSE: The patient did very well. By postoperative day number one, he was tolerating a regular diet. The urine output was very clear and for this reason, we stopped the irrigation and placed the Marcum catheter to gravity. On postoperative day number two, the Bharathi-Bobby (MARINA) output was very minimal. For this reason, we discontinued it and the Marcum catheter was draining to gravity without irrigation clear urine. For this reason, the patient requested to go home and we agreed upon this. He will go home with the following medications: - Bactrim double strength one tablet by mouth twice a day for 10 days - Tylenol 650 mg extended release one tablet by mouth every eight hours for 10 days The patient will followup at [facility] in 7-10 days to have a voiding trial. There were no complications during the surgery or hospitalization.
[2017-06-09] MEDS ORDERED: PREVNAR 13 VACCINE SYRINGE (CPT CODE:90670) IM ONE (17:45)
[2017-06-09] MEDS: LevoFLOXacin 500 MG TABLET PO SCH (17:53)
== END 2017-06-09 18:20 | disposition home or self-care (01) | DRG 708 ==
LOC: M OR 06-07 09:41 → M PCU 06-07 18:27
PROVIDERS: ADMIT Urology; ATTEND Urology
PROC: 8E0W4CZ Robotic Assisted Procedure of Trunk Region, Percutaneous Endoscopic Approach (ICD-10-PCS; 2017-06-07)
PROC: 0VT04ZZ Resection of Prostate, Percutaneous Endoscopic Approach (ICD-10-PCS; principal; 2017-06-07 11:30)
DX: N40.1 Benign prostatic hyperplasia with lower urinary tract symptoms (principal); Z79.82 Long term (current) use of aspirin; Z79.899 Other long term (current) drug therapy; E11.9 Type 2 diabetes mellitus without complications

== ENCOUNTER → 2017-05-16 | Outpatient (REF) | payer MEDICARE ==
[~2017-05-16] MED LIST changes: +BACT800T5 PO; +PROAAER10; +TYLE650T35 PO
== END ==
LOC: M SMT 13:20
PROVIDERS: ATTEND Urology
DX: N39.0 Urinary tract infection, site not specified (principal)

== ENCOUNTER → 2017-05-26 | Outpatient (CLI) | payer MEDICARE ==
[2017-05-26 09:24] LABS: BASO # 0.1 K/mm3 (0.0-0.2); BASO % 1.1 % (0.0-1.0); EOS # 0.1 K/mm3 (0.0-0.50); EOS % 1.4 % (0.0-3.0); LYMPH # 2.1 K/mm3 (1.5-4.5); LYMPH % 23.6 % (24.0-44.0); MEAN CORPUSCULAR HGB CONC 34.2 g/dl (32.0-36.5); MEAN CORPUSCULAR VOLUME 90.8 fl (80.0-96.0); MONO # 0.6 K/mm3 (0.0-0.8); MONO % 6.5 % (0.0-5.0); NEUTROPHILS # 5.9 K/mm3 (1.8-7.7); NEUTROPHILS % 65.7 % (36.0-66.0); RED CELL DISTRIBUTION WIDTH 13.1 % (11.5-14.5)
[2017-05-26 09:33] LABS: ALBUMIN 3.4 GM/DL (3.2-5.2); ALBUMIN/GLOBULIN RATIO 0.89 (1.00-1.93); ALKALINE PHOSPHATASE 100 U/L (45-117); ALT/SGPT 21 U/L (12-78); ANION GAP 7 MEQ/L (8-16); AST/SGOT 8 U/L (15-37); BILIRUBIN,TOTAL 0.4 MG/DL (0.2-1.0); BLOOD UREA NITROGEN 12 MG/DL (7-18); CALCIUM LEVEL 9.8 MG/DL (8.8-10.2); CARBON DIOXIDE LEVEL 27 MEQ/L (21-32); CHLORIDE LEVEL 108 MEQ/L (98-107); CREATININE FOR GFR 0.92 MG/DL (0.70-1.30); GLOMERULAR FILTRATION RATE > 60.0 (>49); GLUCOSE, FASTING 171 MG/DL (80-110); POTASSIUM SERUM 4.4 MEQ/L (3.5-5.1); SODIUM LEVEL 142 MEQ/L (136-145); TOTAL PROTEIN 7.2 GM/DL (6.4-8.2)
[2017-05-26 09:50] LABS: INR 0.96
== END ==
LOC: M LAB 08:15
PROVIDERS: ATTEND Physician Assistant Medical
DX: N40.1 Benign prostatic hyperplasia with lower urinary tract symptoms (principal); Z79.01 Long term (current) use of anticoagulants

== ENCOUNTER → 2017-06-28 | Outpatient (REF) | payer MEDICARE | LOC: M SMT 13:36 | PROVIDERS: ATTEND Nurse Practitioner Women's Health | DX: N40.1 Benign prostatic hyperplasia with lower urinary tract symptoms (principal) ==

== ENCOUNTER → 2017-06-28 | Outpatient (CLI) | payer MEDICARE ==
[2017-06-28 09:18] LABS: BASO # 0.1 10^3/uL (0.0-0.2); BASO % 0.7 % (0.0-1.0); EOS # 0.2 10^3/uL (0.0-0.50); EOS % 1.5 % (0.0-3.0); IMMATURE GRANULOCYTE % 0.6 % (0-0); LYMPH # 2.7 10^3/uL (1.5-4.5); LYMPH % 25.3 % (24.0-44.0); MEAN CORPUSCULAR HEMOGLOBIN 29.9 pg (27.0-33.0); MEAN CORPUSCULAR HGB CONC 32.8 g/dl (32.0-36.5); MEAN CORPUSCULAR VOLUME 91.1 fl (80.0-96.0); MONO # 0.8 10^3/uL (0.0-0.8); MONO % 7.6 % (0.0-5.0); NEUTROPHILS # 6.9 10^3/uL (1.8-7.7); NEUTROPHILS % 64.3 % (36.0-66.0); PLATELET COUNT, AUTOMATED 317 10^3/uL (150-450); RED CELL DISTRIBUTION WIDTH 13.5 % (11.5-14.5); WHITE BLOOD COUNT 10.7 10^3/uL (4.0-10.0)
[2017-06-28 09:48] LABS: ALBUMIN 3.4 GM/DL (3.2-5.2); ALKALINE PHOSPHATASE 90 U/L (45-117); ALT/SGPT 23 U/L (12-78); ANION GAP 7 MEQ/L (8-16); AST/SGOT 10 U/L (15-37); BILIRUBIN,TOTAL 0.3 MG/DL (0.2-1.0); BLOOD UREA NITROGEN 11 MG/DL (7-18); CALCIUM LEVEL 9.2 MG/DL (8.8-10.2); CARBON DIOXIDE LEVEL 30 MEQ/L (21-32); CHLORIDE LEVEL 103 MEQ/L (98-107); CHOLESTEROL LEVEL 143 MG/DL (<200); CREATININE FOR GFR 0.92 MG/DL (0.70-1.30); GLOMERULAR FILTRATION RATE > 60.0 (>49); GLUCOSE, FASTING 163 MG/DL (80-110); POTASSIUM SERUM 4.6 MEQ/L (3.5-5.1); SODIUM LEVEL 140 MEQ/L (136-145); TOTAL PROTEIN 6.8 GM/DL (6.4-8.2); TRIGLYCERIDES LEVEL 84 MG/DL (<150)
== END ==
LOC: M LAB 08:10
PROVIDERS: ATTEND Physician Assistant Medical
DX: E11.9 Type 2 diabetes mellitus without complications (principal)

== ENCOUNTER → 2017-08-31 | Outpatient (CLI) | payer MEDICARE ==
[2017-08-31 08:52] LABS: BASO # 0.1 10^3/uL (0.0-0.2); BASO % 0.9 % (0.0-1.0); EOS # 0.2 10^3/uL (0.0-0.50); EOS % 2.3 % (0.0-3.0); IMMATURE GRANULOCYTE # 0.1 10^3/uL (0-0); IMMATURE GRANULOCYTE % 0.5 % (0-0); LYMPH # 2.8 10^3/uL (1.5-4.5); LYMPH % 27.6 % (24.0-44.0); MEAN CORPUSCULAR HEMOGLOBIN 29.4 pg (27.0-33.0); MEAN CORPUSCULAR HGB CONC 32.3 g/dl (32.0-36.5); MONO # 0.9 10^3/uL (0.0-0.8); NEUTROPHILS % 59.7 % (36.0-66.0); PLATELET COUNT, AUTOMATED 255 10^3/uL (150-450); WHITE BLOOD COUNT 10.1 10^3/uL (4.0-10.0)
[2017-08-31 09:23] LABS: ALBUMIN 3.7 GM/DL (3.2-5.2); ALBUMIN/GLOBULIN RATIO 1.06 (1.00-1.93); ALKALINE PHOSPHATASE 98 U/L (45-117); ALT/SGPT 34 U/L (12-78); ANION GAP 6 MEQ/L (8-16); AST/SGOT 25 U/L (7-37); BILIRUBIN,TOTAL 0.3 MG/DL (0.2-1.0); BLOOD UREA NITROGEN 15 MG/DL (7-18); CALCIUM LEVEL 9.1 MG/DL (8.8-10.2); CARBON DIOXIDE LEVEL 29 MEQ/L (21-32); CHLORIDE LEVEL 107 MEQ/L (98-107); CHOLESTEROL LEVEL 108 MG/DL (<200); CREATININE FOR GFR 0.83 MG/DL (0.70-1.30); GLOMERULAR FILTRATION RATE > 60.0 (>49); GLUCOSE, FASTING 105 MG/DL (80-110); POTASSIUM SERUM 4.3 MEQ/L (3.5-5.1); SODIUM LEVEL 142 MEQ/L (136-145); TOTAL PROTEIN 7.2 GM/DL (6.4-8.2); TRIGLYCERIDES LEVEL 101 MG/DL (<150)
[2017-08-31 10:00] LABS: ESTIMATED AVERAGE GLUCOSE 140 MG/DL (60-110)
== END ==
LOC: M LAB 07:58
DX: E11.9 Type 2 diabetes mellitus without complications (principal)
CPT/HCPCS: 84443

== ENCOUNTER → 2017-12-01 | Outpatient (REF) | payer MEDICARE ==
[2017-12-01 12:51] LABS: MAU/CREAT RATIO 28.9 MCG/MG (0.0-30.0)
[2017-12-01 13:31] LABS: ESTIMATED AVERAGE GLUCOSE 183 MG/DL (60-110)
== END ==
LOC: M SFHCPLAZ 08:47
DX: E11.9 Type 2 diabetes mellitus without complications (principal)
CPT/HCPCS: 83036

== ENCOUNTER → 2018-03-16 | Outpatient (CLI) | payer MEDICARE ==
[2018-03-16 12:26] LABS: ESTIMATED AVERAGE GLUCOSE 174 MG/DL (60-110); HEMOGLOBIN A1c 7.7 %
== END ==
LOC: M LAB 10:12
DX: E11.9 Type 2 diabetes mellitus without complications (principal)
CPT/HCPCS: 83036

== ENCOUNTER → 2018-06-20 | Outpatient (REF) | payer MEDICARE ==
[2018-06-20 12:04] LABS: ESTIMATED AVERAGE GLUCOSE 177 MG/DL (60-110); HEMOGLOBIN A1c 7.8 %
[2018-06-20 12:30] LABS: ANION GAP 10 MEQ/L (8-16); BLOOD UREA NITROGEN 14 MG/DL (7-18); CARBON DIOXIDE LEVEL 26 MEQ/L (21-32); CHLORIDE LEVEL 106 MEQ/L (98-107); CHOLESTEROL LEVEL 151 MG/DL (<200); CHOLESTEROL RISK RATIO 4.441 (<5); CREATININE FOR GFR 0.96 MG/DL (0.70-1.30); GLOMERULAR FILTRATION RATE > 60.0 (>42); GLUCOSE, FASTING 142 MG/DL (70-100); HDL CHOLESTEROL 34 MG/DL (>40); LDL CHOLESTEROL 98 MG/DL (<100); NON-HDL-C 117 MG/DL; POTASSIUM SERUM 4.5 MEQ/L (3.5-5.1); SODIUM LEVEL 142 MEQ/L (136-145); TRIGLYCERIDES LEVEL 96 MG/DL (<150)
== END ==
LOC: M SFHCPLAZ 09:11
DX: E11.9 Type 2 diabetes mellitus without complications (principal); E78.2 Mixed hyperlipidemia; I10 Essential (primary) hypertension
CPT/HCPCS: 83036

== ENCOUNTER 2018-07-02 13:32 | Inpatient (IN) | payer MEDICARE ==
[2018-07-02] MEDS ORDERED: ONDANSETRON 4MG/2ML VIAL (J2405) As Ordered (14:12)
[2018-07-02 14:17] LABS: BASO # 0.1 10^3/uL (0.0-0.2); BASO % 0.4 % (0.0-1.0); EOS % 0.1 % (0.0-3.0); HEMATOCRIT 50.7 % (42.0-52.0); HEMOGLOBIN 16.9 g/dl (13.5-17.5); IMMATURE GRANULOCYTE % 0.5 % (0-3.0); LYMPH # 1.3 10^3/uL (1.5-4.5); LYMPH % 9.7 % (24.0-44.0); MEAN CORPUSCULAR HGB CONC 33.3 g/dl (32.0-36.5); MEAN CORPUSCULAR VOLUME 89.9 fl (80.0-96.0); MONO # 0.5 10^3/uL (0.0-0.8); MONO % 3.8 % (0.0-5.0); NEUTROPHILS # 11.8 10^3/uL (1.8-7.7); NEUTROPHILS % 85.5 % (36.0-66.0); PLATELET COUNT, AUTOMATED 222 10^3/uL (150-450); RED BLOOD COUNT 5.64 10^6/uL (4.30-6.10); WHITE BLOOD COUNT 13.8 10^3/uL (4.0-10.0)
[2018-07-02] MEDS: ONDANSETRON 4MG/2ML VIAL (J2405) IV (14:17)
[2018-07-02 14:18] LABS: BEDSIDE GLUCOSE 221 MG/DL (83-110)
[2018-07-02 14:28] LABS: INR 0.98; PARTIAL THROMBOPLASTIN TIME 30.7 SECONDS (25.4-37.6); PROTHROMBIN TIME 13.1 SECONDS (12.1-14.4)
[2018-07-02] MEDS: NS 1,000 ML IV ×2 (14:33→18:24)
[2018-07-02 14:43] LABS: BLOOD UREA NITROGEN 10 MG/DL (7-18); CARBON DIOXIDE LEVEL 25 MEQ/L (21-32); CHLORIDE LEVEL 104 MEQ/L (98-107); CREATININE FOR GFR 0.96 MG/DL (0.70-1.30); GLOMERULAR FILTRATION RATE > 60.0 (>42); GLUCOSE, FASTING 225 MG/DL (70-100); POTASSIUM SERUM 4.3 MEQ/L (3.5-5.1); SODIUM LEVEL 139 MEQ/L (136-145)
[2018-07-02 14:44] LABS: ALBUMIN/GLOBULIN RATIO 1.08 (1.00-1.93); ALKALINE PHOSPHATASE 130 U/L (45-117); ALT/SGPT 26 U/L (12-78); AMYLASE 23 U/L (25-115); ANION GAP 10 MEQ/L (8-16); AST/SGOT 15 U/L (7-37); BILIRUBIN,DIRECT 0.2 MG/DL (0.0-0.2); BILIRUBIN,TOTAL 0.7 MG/DL (0.2-1.0); CALCIUM LEVEL 9.4 MG/DL (8.8-10.2); CPK CREATINE PHOSPHOKINASE 108 U/L (39-308); LIPASE 54 U/L (73-393); MB/CK RELATIVE INDEX 1.94 (< OR =4); TOTAL PROTEIN 7.7 GM/DL (6.4-8.2); TROPONIN I < 0.02 NG/ML (< 0.10)
[2018-07-02 14:47] LABS: LACTIC ACID SEPSIS PROTOCOL 2.2 MMOL/L (0.4-2.0)
[2018-07-02 15:26] LABS: ABG BASE EXCESS -0.6 (-2.0-2.0); ABG O2 SATURATION 95.1 % (95.0-99.0); ABG PARTIAL PRESSURE CO2 39.6 mmHg (35.0-45.0); ABG PARTIAL PRESSURE O2 70.5 mmHg (75.0-100.0); ABG STANDARD HCO3 23.9 MEQ/L (22.0-26.0); ABG TOTAL CO2 25.3 MEQ/L (23.0-31.0); ABG pH (ARTERIAL) 7.401 UNITS (7.350-7.450)
[2018-07-02] MEDS ORDERED: ISOVUE-370 76% 100ML VIAL (Q9967) As Ordered (15:49)
[2018-07-02 17:03] LABS: KETONE, URINE AUTO RFX TRACE mg/dL (NEGATIVE); MUCUS, URINE RFX SMALL (NEGATIVE); NITRITE, URINE AUTO RFX NEGATIVE (NEGATIVE); RBC, URINE AUTO RFX 5 /HPF (0-3); SPECIFIC GRAVITY UR AUTO RFX 1.015 (1.002-1.035); SQUAM EPITHELIAL CELL UR AURFX 0 /HPF (0-6); WBC, URINE AUTO RFX 5 /HPF (0-3)
[2018-07-02 17:07] LABS: LEUKOCYTE ESTERASE UR AUTO RFX TRACE (NEGATIVE)
[2018-07-02] MEDS ORDERED: GLUCAGON FOR INJ 1 MG VIAL (J1610) SC (17:30)
[2018-07-02] MEDS ORDERED: DEXTROSE 50% 50 ML SYRINGE IV (17:30)
[2018-07-02] MEDS ORDERED: GLUCOSE 4 GM CHEW TABLET PO (17:30)
[2018-07-02 18:19] LABS: BEDSIDE GLUCOSE 167 MG/DL (83-110)
[2018-07-02] MEDS: HumaLOG INSULIN (NovoLOG) PER UNIT SC (18:24)
[2018-07-02] MEDS: ASPIRIN 325 MG TAB PO (18:25)
[2018-07-02] MEDS: SIMVASTATIN 40 MG TAB PO (18:26)
[2018-07-02 18:30] LABS: AMMONIA 19 uMOL/L (<32)
[2018-07-02 18:34] LABS: CPK CREATINE PHOSPHOKINASE 127 U/L (39-308); MB/CK RELATIVE INDEX 1.57 (< OR =4); TROPONIN I < 0.02 NG/ML (< 0.10)
[2018-07-03 00:12] LABS: BEDSIDE GLUCOSE 133 MG/DL (83-110)
[2018-07-03 02:29] LABS: CPK CREATINE PHOSPHOKINASE 109 U/L (39-308); MB/CK RELATIVE INDEX 1.65 (< OR =4); TROPONIN I < 0.02 NG/ML (< 0.10)
[2018-07-03 05:07] LABS: BASO % 0.3 % (0.0-1.0); EOS % 0.2 % (0.0-3.0); HEMATOCRIT 48.7 % (42.0-52.0); HEMOGLOBIN 16.2 g/dl (13.5-17.5); IMMATURE GRANULOCYTE % 0.5 % (0-3.0); LYMPH # 1.6 10^3/uL (1.5-4.5); LYMPH % 11.8 % (24.0-44.0); MEAN CORPUSCULAR HEMOGLOBIN 29.7 pg (27.0-33.0); MEAN CORPUSCULAR HGB CONC 33.3 g/dl (32.0-36.5); MEAN CORPUSCULAR VOLUME 89.4 fl (80.0-96.0); MONO # 0.9 10^3/uL (0.0-0.8); MONO % 6.7 % (0.0-5.0); NEUTROPHILS # 11.2 10^3/uL (1.8-7.7); NEUTROPHILS % 80.5 % (36.0-66.0); PLATELET COUNT, AUTOMATED 241 10^3/uL (150-450); RED BLOOD COUNT 5.45 10^6/uL (4.30-6.10); RED CELL DISTRIBUTION WIDTH 12.9 % (11.5-14.5); WHITE BLOOD COUNT 13.9 10^3/uL (4.0-10.0)
[2018-07-03] MEDS: LABETALOL HCL 100 MG/20 ML VIAL IV ×3 (05:20→17:49)
[2018-07-03 05:45] LABS: ALBUMIN 3.3 GM/DL (3.2-5.2); ALKALINE PHOSPHATASE 119 U/L (45-117); ALT/SGPT 21 U/L (12-78); ANION GAP 10 MEQ/L (8-16); AST/SGOT 15 U/L (7-37); BILIRUBIN,TOTAL 0.9 MG/DL (0.2-1.0); BLOOD UREA NITROGEN 9 MG/DL (7-18); CALCIUM LEVEL 8.7 MG/DL (8.8-10.2); CARBON DIOXIDE LEVEL 29 MEQ/L (21-32); CHLORIDE LEVEL 105 MEQ/L (98-107); CREATININE FOR GFR 0.75 MG/DL (0.70-1.30); GLOMERULAR FILTRATION RATE > 60.0 (>42); GLUCOSE, FASTING 161 MG/DL (70-100); MAGNESIUM LEVEL 1.9 MG/DL (1.8-2.4); POTASSIUM SERUM 3.4 MEQ/L (3.5-5.1); SODIUM LEVEL 144 MEQ/L (136-145); TOTAL PROTEIN 7.4 GM/DL (6.4-8.2)
[2018-07-03] MEDS: HumaLOG INSULIN (NovoLOG) PER UNIT SC ×4 (06:00→17:47)
[2018-07-03] MEDS: NS 1,000 ML IV (07:09)
[2018-07-03] MEDS: POTASSIUM CHLORIDE 10% LIQ 20 MEQ/15 ML UDC FT (08:45)
[2018-07-03] MEDS: VITAMIN D 1,000 INTERNATIONAL UNITS TABLET PO (08:45)
[2018-07-03] MEDS: TAMSULOSIN 0.4 MG CAP PO (08:45)
[2018-07-03] MEDS: HEPARIN SOD (PORCINE) 5000 UNITS/ML VIAL SQ ×2 (08:47→20:28)
[2018-07-03] MEDS: ASPIRIN 325 MG TAB PO (08:51)
[2018-07-03] MEDS: KCL 20MEQ in NS 1000ML 1,000 ML IV (10:47)
[2018-07-03] MEDS: GASTROGRAFIN SOLUTION 30ML PO ×2 (10:47→11:51)
[2018-07-03 11:35] LABS: BEDSIDE GLUCOSE 175 MG/DL (83-110)
[2018-07-03] MEDS ORDERED: cefTRIAXone SOD 2 GM in D5W MINI-BAG PLUS 50 ML IV (13:00)
[2018-07-03] MEDS ORDERED: PILL CRUSHER/CUTTER 1 EACH XX (13:15)
[2018-07-03] MEDS: cefTRIAXone SOD 1 GM in D5W MINI-BAG PLUS 50 ML IV (13:23)
[2018-07-03 17:30] LABS: BEDSIDE GLUCOSE 134 MG/DL (83-110)
[2018-07-03] MEDS: SIMVASTATIN 40 MG TAB PO (20:28)
[2018-07-03 23:49] LABS: BEDSIDE GLUCOSE 163 MG/DL (83-110)
[2018-07-04] MEDS: KCL 20MEQ in NS 1000ML 1,000 ML IV ×2 (00:10→08:22)
[2018-07-04] MEDS: HumaLOG INSULIN (NovoLOG) PER UNIT SC ×4 (00:10→18:49)
[2018-07-04] MEDS ORDERED: SLF 3 ML SYR IV (03:00)
[2018-07-04] MEDS: LABETALOL HCL 100 MG/20 ML VIAL IV ×4 (05:40→17:27)
[2018-07-04 05:41] LABS: BEDSIDE GLUCOSE 143 MG/DL (83-110)
[2018-07-04] MEDS: SLF 3 ML SYR IV ×3 (05:41→21:59)
[2018-07-04 06:01] LABS: BASO # 0.1 10^3/uL (0.0-0.2); BASO % 0.5 % (0.0-1.0); EOS % 0.3 % (0.0-3.0); HEMATOCRIT 46.5 % (42.0-52.0); HEMOGLOBIN 15.7 g/dl (13.5-17.5); IMMATURE GRANULOCYTE % 0.4 % (0-3.0); LYMPH # 2.3 10^3/uL (1.5-4.5); LYMPH % 17.3 % (24.0-44.0); MEAN CORPUSCULAR HEMOGLOBIN 30.4 pg (27.0-33.0); MEAN CORPUSCULAR HGB CONC 33.8 g/dl (32.0-36.5); MEAN CORPUSCULAR VOLUME 89.9 fl (80.0-96.0); MONO # 1.2 10^3/uL (0.0-0.8); MONO % 9.3 % (0.0-5.0); NEUTROPHILS # 9.6 10^3/uL (1.8-7.7); NEUTROPHILS % 72.2 % (36.0-66.0); PLATELET COUNT, AUTOMATED 220 10^3/uL (150-450); RED BLOOD COUNT 5.17 10^6/uL (4.30-6.10); RED CELL DISTRIBUTION WIDTH 12.9 % (11.5-14.5); WHITE BLOOD COUNT 13.3 10^3/uL (4.0-10.0)
[2018-07-04 06:43] LABS: ALBUMIN 3.1 GM/DL (3.2-5.2); ALBUMIN/GLOBULIN RATIO 0.79 (1.00-1.93); ALKALINE PHOSPHATASE 116 U/L (45-117); ALT/SGPT 17 U/L (12-78); ANION GAP 6 MEQ/L (8-16); AST/SGOT 24 U/L (7-37); BILIRUBIN,TOTAL 0.7 MG/DL (0.2-1.0); BLOOD UREA NITROGEN 9 MG/DL (7-18); CARBON DIOXIDE LEVEL 28 MEQ/L (21-32); CHLORIDE LEVEL 104 MEQ/L (98-107); CREATININE FOR GFR 0.72 MG/DL (0.70-1.30); GLOMERULAR FILTRATION RATE > 60.0 (>42); GLUCOSE, FASTING 136 MG/DL (70-100); MAGNESIUM LEVEL 2.2 MG/DL (1.8-2.4); POTASSIUM SERUM 4.2 MEQ/L (3.5-5.1); SODIUM LEVEL 138 MEQ/L (136-145)
[2018-07-04] MEDS: ASPIRIN 325 MG TAB PO (08:21)
[2018-07-04] MEDS: TAMSULOSIN 0.4 MG CAP PO (08:21)
[2018-07-04] MEDS: VITAMIN D 1,000 INTERNATIONAL UNITS TABLET PO (08:21)
[2018-07-04] MEDS: HEPARIN SOD (PORCINE) 5000 UNITS/ML VIAL SQ ×2 (08:24→21:59)
[2018-07-04 11:55] LABS: BEDSIDE GLUCOSE 146 MG/DL (83-110)
[2018-07-04] MEDS: cefTRIAXone SOD 1 GM in D5W MINI-BAG PLUS 50 ML IV (15:01)
[2018-07-04] MEDS: amLODIPine 5 MG TAB PO (17:01)
[2018-07-04 17:36] LABS: BEDSIDE GLUCOSE 155 MG/DL (83-110)
[2018-07-04] MEDS: SIMVASTATIN 40 MG TAB PO (21:59)
[2018-07-05 00:01] LABS: BEDSIDE GLUCOSE 116 MG/DL (83-110)
[2018-07-05 05:56] LABS: BEDSIDE GLUCOSE 115 MG/DL (83-110)
[2018-07-05] MEDS: SLF 3 ML SYR IV ×3 (05:57→22:00)
[2018-07-05] MEDS: HumaLOG INSULIN (NovoLOG) PER UNIT SC ×5 (05:57→21:00)
[2018-07-05] MEDS: LABETALOL HCL 100 MG/20 ML VIAL IV ×4 (06:00→17:38)
[2018-07-05 06:06] LABS: BASO # 0.1 10^3/uL (0.0-0.2); EOS # 0.1 10^3/uL (0.0-0.50); EOS % 1.1 % (0.0-3.0); HEMATOCRIT 46.6 % (42.0-52.0); HEMOGLOBIN 15.4 g/dl (13.5-17.5); IMMATURE GRANULOCYTE % 0.5 % (0-3.0); LYMPH # 2.8 10^3/uL (1.5-4.5); LYMPH % 25.8 % (24.0-44.0); MEAN CORPUSCULAR VOLUME 90.8 fl (80.0-96.0); MONO # 0.9 10^3/uL (0.0-0.8); MONO % 8.7 % (0.0-5.0); NEUTROPHILS # 6.7 10^3/uL (1.8-7.7); NEUTROPHILS % 62.9 % (36.0-66.0); PLATELET COUNT, AUTOMATED 237 10^3/uL (150-450); RED BLOOD COUNT 5.13 10^6/uL (4.30-6.10); RED CELL DISTRIBUTION WIDTH 12.9 % (11.5-14.5); WHITE BLOOD COUNT 10.7 10^3/uL (4.0-10.0)
[2018-07-05 07:37] LABS: ALBUMIN 3.1 GM/DL (3.2-5.2); ALBUMIN/GLOBULIN RATIO 0.86 (1.00-1.93); ALKALINE PHOSPHATASE 109 U/L (45-117); ALT/SGPT 17 U/L (12-78); ANION GAP 7 MEQ/L (8-16); AST/SGOT 15 U/L (7-37); BILIRUBIN,TOTAL 0.6 MG/DL (0.2-1.0); BLOOD UREA NITROGEN 16 MG/DL (7-18); CALCIUM LEVEL 9.1 MG/DL (8.8-10.2); CARBON DIOXIDE LEVEL 29 MEQ/L (21-32); CHLORIDE LEVEL 104 MEQ/L (98-107); CREATININE FOR GFR 0.75 MG/DL (0.70-1.30); GLOMERULAR FILTRATION RATE > 60.0 (>42); GLUCOSE, FASTING 125 MG/DL (70-100); MAGNESIUM LEVEL 2.4 MG/DL (1.8-2.4); POTASSIUM SERUM 3.7 MEQ/L (3.5-5.1); SODIUM LEVEL 140 MEQ/L (136-145); TOTAL PROTEIN 6.7 GM/DL (6.4-8.2)
[2018-07-05] MEDS: ASPIRIN 325 MG TAB PO (09:43)
[2018-07-05] MEDS: TAMSULOSIN 0.4 MG CAP PO (09:43)
[2018-07-05] MEDS: HEPARIN SOD (PORCINE) 5000 UNITS/ML VIAL SQ ×2 (09:43→22:09)
[2018-07-05] MEDS: VITAMIN D 1,000 INTERNATIONAL UNITS TABLET PO (09:43)
[2018-07-05] MEDS: amLODIPine 5 MG TAB PO (09:44)
[2018-07-05 12:20] LABS: BEDSIDE GLUCOSE 179 MG/DL (83-110)
[2018-07-05 16:27] LABS: BEDSIDE GLUCOSE 167 MG/DL (83-110)
[2018-07-05 20:09] LABS: BEDSIDE GLUCOSE 230 MG/DL (83-110)
[2018-07-05] MEDS ORDERED: DEXTROSE 50% 50 ML SYRINGE IV (22:00)
[2018-07-05] MEDS ORDERED: GLUCAGON FOR INJ 1 MG VIAL (J1610) SC (22:00)
[2018-07-05] MEDS ORDERED: GLUCOSE 4 GM CHEW TABLET PO (22:00)
[2018-07-05] MEDS: SIMVASTATIN 40 MG TAB PO (22:08)
[2018-07-06 05:19] LABS: BASO # 0.1 10^3/uL (0.0-0.2); BASO % 0.7 % (0.0-1.0); EOS # 0.1 10^3/uL (0.0-0.50); EOS % 1.3 % (0.0-3.0); HEMATOCRIT 45.9 % (42.0-52.0); HEMOGLOBIN 15.1 g/dl (13.5-17.5); IMMATURE GRANULOCYTE % 0.6 % (0-3.0); LYMPH # 2.5 10^3/uL (1.5-4.5); LYMPH % 24.6 % (24.0-44.0); MEAN CORPUSCULAR HEMOGLOBIN 30.3 pg (27.0-33.0); MEAN CORPUSCULAR HGB CONC 32.9 g/dl (32.0-36.5); MONO % 9.4 % (0.0-5.0); NEUTROPHILS # 6.4 10^3/uL (1.8-7.7); NEUTROPHILS % 63.4 % (36.0-66.0); PLATELET COUNT, AUTOMATED 224 10^3/uL (150-450); RED BLOOD COUNT 4.99 10^6/uL (4.30-6.10); RED CELL DISTRIBUTION WIDTH 12.9 % (11.5-14.5); WHITE BLOOD COUNT 10.1 10^3/uL (4.0-10.0)
[2018-07-06 05:42] LABS: ALBUMIN 3.1 GM/DL (3.2-5.2); ALBUMIN/GLOBULIN RATIO 0.84 (1.00-1.93); ALKALINE PHOSPHATASE 110 U/L (45-117); ALT/SGPT 17 U/L (12-78); ANION GAP 6 MEQ/L (8-16); AST/SGOT 14 U/L (7-37); BILIRUBIN,TOTAL 0.5 MG/DL (0.2-1.0); BLOOD UREA NITROGEN 21 MG/DL (7-18); CALCIUM LEVEL 9.2 MG/DL (8.8-10.2); CARBON DIOXIDE LEVEL 30 MEQ/L (21-32); CHLORIDE LEVEL 103 MEQ/L (98-107); CREATININE FOR GFR 0.82 MG/DL (0.70-1.30); GLOMERULAR FILTRATION RATE > 60.0 (>42); GLUCOSE, FASTING 157 MG/DL (70-100); MAGNESIUM LEVEL 2.2 MG/DL (1.8-2.4); POTASSIUM SERUM 3.6 MEQ/L (3.5-5.1); SODIUM LEVEL 139 MEQ/L (136-145); TOTAL PROTEIN 6.8 GM/DL (6.4-8.2)
[2018-07-06] MEDS: SLF 3 ML SYR IV ×3 (06:00→20:48)
[2018-07-06] MEDS: LABETALOL HCL 100 MG/20 ML VIAL IV ×2 (07:02)
[2018-07-06] MEDS: amLODIPine 5 MG TAB PO ×2 (08:44→09:57)
[2018-07-06] MEDS: VITAMIN D 1,000 INTERNATIONAL UNITS TABLET PO (08:44)
[2018-07-06] MEDS: TAMSULOSIN 0.4 MG CAP PO (08:45)
[2018-07-06] MEDS: HumaLOG INSULIN (NovoLOG) PER UNIT SC ×4 (08:45→20:48)
[2018-07-06] MEDS: HEPARIN SOD (PORCINE) 5000 UNITS/ML VIAL SQ ×2 (08:45→20:48)
[2018-07-06] MEDS: ASPIRIN 325 MG TAB PO (08:45)
[2018-07-06 11:59] LABS: BEDSIDE GLUCOSE 140 MG/DL (83-110)
[2018-07-06 17:07] LABS: BEDSIDE GLUCOSE 162 MG/DL (83-110)
[2018-07-06 20:34] LABS: BEDSIDE GLUCOSE 186 MG/DL (83-110)
[2018-07-06] MEDS: SIMVASTATIN 40 MG TAB PO (20:47)
[2018-07-07] MEDS: SLF 3 ML SYR IV (05:16)
[2018-07-07 05:42] LABS: BASO # 0.1 10^3/uL (0.0-0.2); BASO % 0.7 % (0.0-1.0); EOS # 0.1 10^3/uL (0.0-0.50); EOS % 1.6 % (0.0-3.0); HEMATOCRIT 44.8 % (42.0-52.0); IMMATURE GRANULOCYTE % 0.8 % (0-3.0); LYMPH # 2.6 10^3/uL (1.5-4.5); LYMPH % 29.5 % (24.0-44.0); MEAN CORPUSCULAR HEMOGLOBIN 30.2 pg (27.0-33.0); MEAN CORPUSCULAR HGB CONC 33.5 g/dl (32.0-36.5); MEAN CORPUSCULAR VOLUME 90.3 fl (80.0-96.0); MONO # 0.8 10^3/uL (0.0-0.8); MONO % 9.4 % (0.0-5.0); NEUTROPHILS # 5.1 10^3/uL (1.8-7.7); PLATELET COUNT, AUTOMATED 243 10^3/uL (150-450); RED BLOOD COUNT 4.96 10^6/uL (4.30-6.10); RED CELL DISTRIBUTION WIDTH 12.7 % (11.5-14.5); WHITE BLOOD COUNT 8.7 10^3/uL (4.0-10.0)
[2018-07-07 06:06] LABS: ALBUMIN 3.2 GM/DL (3.2-5.2); ALBUMIN/GLOBULIN RATIO 0.86 (1.00-1.93); ALKALINE PHOSPHATASE 109 U/L (45-117); ALT/SGPT 21 U/L (12-78); ANION GAP 5 MEQ/L (8-16); AST/SGOT 14 U/L (7-37); BILIRUBIN,TOTAL 0.4 MG/DL (0.2-1.0); BLOOD UREA NITROGEN 13 MG/DL (7-18); CALCIUM LEVEL 9.2 MG/DL (8.8-10.2); CARBON DIOXIDE LEVEL 30 MEQ/L (21-32); CHLORIDE LEVEL 103 MEQ/L (98-107); GLOMERULAR FILTRATION RATE > 60.0 (>42); GLUCOSE, FASTING 166 MG/DL (70-100); MAGNESIUM LEVEL 1.9 MG/DL (1.8-2.4); POTASSIUM SERUM 3.6 MEQ/L (3.5-5.1); SODIUM LEVEL 138 MEQ/L (136-145); TOTAL PROTEIN 6.9 GM/DL (6.4-8.2)
[2018-07-07] MEDS: HumaLOG INSULIN (NovoLOG) PER UNIT SC ×2 (08:56→12:12)
[2018-07-07] MEDS: VITAMIN D 1,000 INTERNATIONAL UNITS TABLET PO (08:56)
[2018-07-07] MEDS: TAMSULOSIN 0.4 MG CAP PO (08:57)
[2018-07-07] MEDS: ASPIRIN 325 MG TAB PO (08:57)
[2018-07-07] MEDS: amLODIPine 5 MG TAB PO (08:58)
[2018-07-07] MEDS: HEPARIN SOD (PORCINE) 5000 UNITS/ML VIAL SQ (08:58)
[2018-07-07] MEDS: BISACODYL 10 MG SUPP PR (10:18)
[2018-07-07] MEDS: SENNA 8.6 MG TAB (SENOKOT) PO (10:45)
[2018-07-07] MEDS ORDERED: MIRALAX *UNIT DOSE* 17GM PACKET PO (10:45)
[2018-07-07 12:06] LABS: BEDSIDE GLUCOSE 165 MG/DL (83-110)
== END 2018-07-07 14:12 | DRG 65 ==
LOC: M ED 13:32 → M ED INP 18:45 → M PCU 20:30
DX: I63.89 Other cerebral infarction (principal); E87.2 Acidosis; N39.0 Urinary tract infection, site not specified; I69.320 Aphasia following cerebral infarction; N40.0 Benign prostatic hyperplasia without lower urinary tract symptoms; E11.9 Type 2 diabetes mellitus without complications; D72.829 Elevated white blood cell count, unspecified; I10 Essential (primary) hypertension; R11.10 Vomiting, unspecified; Z79.899 Other long term (current) drug therapy; Z79.82 Long term (current) use of aspirin; E78.5 Hyperlipidemia, unspecified; F17.200 Nicotine dependence, unspecified, uncomplicated; J44.9 Chronic obstructive pulmonary disease, unspecified

== ENCOUNTER → 2018-07-20 | Outpatient (REF) ==
[2018-07-20 12:53] LABS: ESTIMATED AVERAGE GLUCOSE 163 MG/DL (60-110); HEMOGLOBIN A1c 7.3 %
[2018-07-20 14:49] LABS: MALB URINE SIEMENS 26.7 MG/L; MAU/CREAT RATIO 70.2 MCG/MG (0.0-30.0)
== END ==
LOC: SKLAB5 07:24
DX: E11.9 Type 2 diabetes mellitus without complications (principal)

== ENCOUNTER → 2018-08-29 | Outpatient (REF) | payer MEDICARE ==
[~2018-08-29] MED LIST changes: +ASPI1TAB20 PO; +ASPI81TA21 PO; +D 501TAB PO; +TAMS1CAP17 PO; +TRUL10IN SC; +VENTAER INH; +comment
[2018-08-30 03:28] LABS: APPEARANCE, URINE HAZY (CLEAR); BACTERIA, URINE AUTO NEGATIVE (NEGATIVE); BILIRUBIN, URINE AUTO NEGATIVE (NEGATIVE); BLOOD, URINE BLOOD 1+ (NEGATIVE); COLOR, URINE YELLOW (YELLOW); GLUCOSE, URINE (UA) AUTO 3+ mg/dL (NEGATIVE); KETONE, URINE AUTO NEGATIVE (NEGATIVE); LEUKOCYTE ESTERASE, URINE AUTO 2+ (NEGATIVE); NITRITE, URINE AUTO NEGATIVE (NEGATIVE); PROTEIN, URINE AUTO NEGATIVE (NEGATIVE); RBC, URINE AUTO 15 /HPF (0-3); SPECIFIC GRAVITY URINE AUTO 1.033 (1.002-1.035); SQUAMOUS EPITHELIAL CELL UR AU 2 /HPF (0-6); WBC, URINE AUTO 115 /HPF (0-3)
== END ==
LOC: SKLAB5 23:44
PROVIDERS: ATTEND Family Medicine
DX: R39.89 Other symptoms and signs involving the genitourinary system (principal)

== ENCOUNTER → 2018-08-30 | Outpatient (REF) | payer MEDICARE ==
[2018-08-30 12:52] LABS: HEMATOCRIT 45.2 % (42.0-52.0); HEMOGLOBIN 15.3 g/dl (13.5-17.5); MEAN CORPUSCULAR HEMOGLOBIN 30.4 pg (27.0-33.0); MEAN CORPUSCULAR HGB CONC 33.8 g/dl (32.0-36.5); MEAN CORPUSCULAR VOLUME 89.9 fl (80.0-96.0); PLATELET COUNT, AUTOMATED 237 10^3/uL (150-450); RED BLOOD COUNT 5.03 10^6/uL (4.30-6.10); WHITE BLOOD COUNT 11.1 10^3/uL (4.0-10.0)
[2018-08-30 13:14] LABS: BLOOD UREA NITROGEN 15 MG/DL (7-18); CALCIUM LEVEL 9.4 MG/DL (8.8-10.2); CARBON DIOXIDE LEVEL 24 MEQ/L (21-32); CHLORIDE LEVEL 107 MEQ/L (98-107); GLOMERULAR FILTRATION RATE > 60.0 (>42); GLUCOSE, FASTING 123 MG/DL (70-100); POTASSIUM SERUM 4.6 MEQ/L (3.5-5.1); SODIUM LEVEL 138 MEQ/L (136-145)
== END ==
LOC: SKLAB5 11:46
PROVIDERS: ATTEND Family Medicine
DX: R29.6 Repeated falls (principal)

== ENCOUNTER → 2018-09-06 | Outpatient (REF) | payer MEDICARE | LOC: SKLAB5 09:52 | PROVIDERS: ATTEND Family Medicine | DX: R29.6 Repeated falls (principal); R41.82 Altered mental status, unspecified ==

== ENCOUNTER → 2018-09-06 | Outpatient (CLI) | payer MEDICARE ==
[~2018-09-06] MED LIST changes: +GLIP10TA18 PO; -GLIP1TAB49 PO; -GLIP1TAB51 PO; +GLIP5TAB20 PO
[2018-09-06 11:29] LABS: HEMATOCRIT 48.6 % (42.0-52.0); HEMOGLOBIN 15.9 g/dl (13.5-17.5); MEAN CORPUSCULAR HEMOGLOBIN 30.3 pg (27.0-33.0); MEAN CORPUSCULAR HGB CONC 32.7 g/dl (32.0-36.5); MEAN CORPUSCULAR VOLUME 92.6 fl (80.0-96.0); PLATELET COUNT, AUTOMATED 254 10^3/uL (150-450); RED BLOOD COUNT 5.25 10^6/uL (4.30-6.10); WHITE BLOOD COUNT 10.2 10^3/uL (4.0-10.0)
--- NOTE | 2018-09-06 11:50 | REP ---
CT Head without contrast HISTORY: Fall COMPARISON: 07/02/2018 Areas of decreased attenuation are present in the left internal capsule and bilateral centrum semiovale . These represent old lacunar infarctions. Areas of decreased attenuation are present in the periventricular and subcortical white matter. This represents small-vessel ischemic disease. There is no intraparenchymal hemorrhage, acute infarct, mass or midline shift. The ventricular system and cortical sulci are dilated consistent with mild volume loss. There is no extra cerebral collection. There is no fracture. The patient is status post left mastoidectomy. Soft tissue density is present at the mastoidectomy site. This most likely represents scar tissue. The visualized sinuses are clear. IMPRESSION: 1. Old left internal capsule and bilateral centrum semiovale lacunar infarctions. 2. Small vessel ischemic disease. 3. Mild volume loss. Electronically Signed by Doroteo Barker MD 09/06/2018 11:41 A
[2018-09-06 12:31] LABS: ALBUMIN 4.1 GM/DL (3.2-5.2); ALT/SGPT 24 U/L (12-78); BILIRUBIN,TOTAL 0.5 MG/DL (0.2-1.0); BLOOD UREA NITROGEN 16 MG/DL (7-18); CARBON DIOXIDE LEVEL 32 MEQ/L (21-32); CHLORIDE LEVEL 103 MEQ/L (98-107); CREATININE FOR GFR 0.98 MG/DL (0.70-1.30); GLOMERULAR FILTRATION RATE > 60.0 (>42); GLUCOSE, FASTING 149 MG/DL (70-100); POTASSIUM SERUM 4.1 MEQ/L (3.5-5.1); SODIUM LEVEL 141 MEQ/L (136-145); TOTAL PROTEIN 7.7 GM/DL (6.4-8.2)
== END ==
LOC: M RAD 10:48
PROVIDERS: ATTEND Nurse Practitioner Family
DX: R90.82 White matter disease, unspecified (principal); R29.6 Repeated falls; Z79.899 Other long term (current) drug therapy

== ENCOUNTER → 2018-09-07 | Outpatient (REF) | payer MEDICARE ==
[~2018-09-07] MED LIST changes: -GLIP10TA18 PO; +GLIP1TAB49 PO; +GLIP1TAB51 PO; -GLIP5TAB20 PO
[2018-09-07 08:28] LABS: HEMATOCRIT 45.6 % (42.0-52.0); HEMOGLOBIN 14.9 g/dl (13.5-17.5); MEAN CORPUSCULAR HEMOGLOBIN 30.6 pg (27.0-33.0); MEAN CORPUSCULAR HGB CONC 32.7 g/dl (32.0-36.5); MEAN CORPUSCULAR VOLUME 93.6 fl (80.0-96.0); PLATELET COUNT, AUTOMATED 239 10^3/uL (150-450); RED BLOOD COUNT 4.87 10^6/uL (4.30-6.10); WHITE BLOOD COUNT 9.9 10^3/uL (4.0-10.0)
[2018-09-07 15:02] LABS: APPEARANCE, URINE CLEAR (CLEAR); BACTERIA, URINE AUTO NEGATIVE (NEGATIVE); BILIRUBIN, URINE AUTO NEGATIVE (NEGATIVE); BLOOD, URINE BLOOD NEGATIVE (NEGATIVE); COLOR, URINE YELLOW (YELLOW); GLUCOSE, URINE (UA) AUTO 3+ mg/dL (NEGATIVE); KETONE, URINE AUTO NEGATIVE (NEGATIVE); LEUKOCYTE ESTERASE, URINE AUTO 2+ (NEGATIVE); NITRITE, URINE AUTO NEGATIVE (NEGATIVE); PROTEIN, URINE AUTO NEGATIVE (NEGATIVE); RBC, URINE AUTO 5 /HPF (0-3); SPECIFIC GRAVITY URINE AUTO 1.025 (1.002-1.035); SQUAMOUS EPITHELIAL CELL UR AU 0 /HPF (0-6); WBC, URINE AUTO 18 /HPF (0-3)
== END ==
LOC: SKLAB5 08:04
PROVIDERS: ATTEND Family Medicine
DX: D64.9 Anemia, unspecified (principal)

== ENCOUNTER → 2018-11-22 | Outpatient (REF) | payer MEDICARE, MEDICAID ==
[~2018-11-22] MED LIST changes: +GLIP10TA18 PO; -GLIP1TAB49 PO; -GLIP1TAB51 PO; +GLIP5TAB20 PO
[2018-11-22 08:01] LABS: APPEARANCE, URINE CLEAR (CLEAR); BACTERIA, URINE AUTO NEGATIVE (NEGATIVE); BILIRUBIN, URINE AUTO NEGATIVE (NEGATIVE); BLOOD, URINE BLOOD NEGATIVE (NEGATIVE); COLOR, URINE YELLOW (YELLOW); GLUCOSE, URINE (UA) AUTO 3+ mg/dL (NEGATIVE); KETONE, URINE AUTO NEGATIVE (NEGATIVE); LEUKOCYTE ESTERASE, URINE AUTO 2+ (NEGATIVE); MUCUS, URINE SMALL (NEGATIVE); NITRITE, URINE AUTO NEGATIVE (NEGATIVE); PROTEIN, URINE AUTO NEGATIVE (NEGATIVE); RBC, URINE AUTO 9 /HPF (0-3); SPECIFIC GRAVITY URINE AUTO 1.013 (1.002-1.035); SQUAMOUS EPITHELIAL CELL UR AU 0 /HPF (0-6); UROBILINOGEN, URINE AUTO 0.2 mg/dL (0.0-2.0); WBC, URINE AUTO 22 /HPF (0-3)
== END ==
LOC: SKLAB5 07:32
PROVIDERS: ATTEND Family Medicine
DX: R41.82 Altered mental status, unspecified (principal); Z79.899 Other long term (current) drug therapy

== ENCOUNTER → 2018-12-07 | Outpatient (REF) | payer MEDICARE, MEDICAID ==
[~2018-12-07] MED LIST changes: -/GLYB5TA PO; +GLYB1TAB29 PO; +METO-743 PO; -TOPR50TA PO
[2018-12-07 09:03] LABS: HEMOGLOBIN 15.7 g/dl (13.5-17.5); MEAN CORPUSCULAR HEMOGLOBIN 30.3 pg (27.0-33.0); MEAN CORPUSCULAR HGB CONC 32.7 g/dl (32.0-36.5); MEAN CORPUSCULAR VOLUME 92.5 fl (80.0-96.0); PLATELET COUNT, AUTOMATED 223 10^3/uL (150-450); RED BLOOD COUNT 5.19 10^6/uL (4.30-6.10)
[2018-12-07 09:25] LABS: BLOOD UREA NITROGEN 16 MG/DL (7-18); CALCIUM LEVEL 9.3 MG/DL (8.8-10.2); CARBON DIOXIDE LEVEL 28 MEQ/L (21-32); CHLORIDE LEVEL 106 MEQ/L (98-107); CREATININE FOR GFR 0.83 MG/DL (0.70-1.30); GLOMERULAR FILTRATION RATE > 60.0 (>42); GLUCOSE, FASTING 124 MG/DL (70-100); POTASSIUM SERUM 3.7 MEQ/L (3.5-5.1); SODIUM LEVEL 141 MEQ/L (136-145)
== END ==
LOC: SKLAB5 08:01
PROVIDERS: ATTEND Family Medicine
DX: I10 Essential (primary) hypertension (principal)

== ENCOUNTER → 2018-12-13 | Outpatient (CLI) | payer MEDICARE, MEDICAID ==
[~2018-12-13] MED LIST changes: -ASPI1TAB PO; +ASPI81TA26 PO; -D 501TAB PO; +VITA500030 PO
--- NOTE | 2018-12-13 15:48 | NUR ---
Pt seen for Modified Barium Swallow Study to determine safest/least restrictive diet. Tolerance has been variable since his [facility]. Pt. presents with moderate oral phase dysphagia and mild-severe pharyngeal phase dysphagia as characterized by: significant bolus control deficit of all consistencies, penetration of mixed consistencies and silent aspiration of thin liquids. Pt. was able to tolerate nectar thick using a chin tuck strategy with this study. Recommend: continued dysphagia therapy to ensure compensatory strategy is established before making nectar thick liquid recommendation. Recommendations: Puree solids/honey thick liquids. Meds crushed in puree assist. Line of sight supervision. Addendum: 12/13/18 at 1548 by BRAYAN ANAYA [facility] Amended: Links added.
--- NOTE | 2018-12-13 17:32 | REP ---
COOKIE SWALLOW The procedure was performed under the direct supervision of Dr. Kearns. The procedure was performed with Marisa Beard from speech pathology present. 5 ml aliquots of thin, pudding, mixed fruit, soft food and nectar consistency barium was administered. With mixed fruit consistency there is laryngeal penetration. With thin and nectar consistency barium there is aspiration. The detailed report of this examination will be provided by speech pathology. 3 minutes of fluoroscopy time was utilized for this procedure. Reviewed by JANNA Ott 12/13/2018 03:57 P Electronically Signed by Danial Kearns MD 12/13/2018 05:21 P
== END ==
LOC: M ST 14:13
PROVIDERS: ATTEND Family Medicine
DX: R13.12 Dysphagia, oropharyngeal phase (principal)

== ENCOUNTER → 2019-01-04 | Outpatient (REF) | payer MEDICARE, MEDICAID ==
[2019-01-04 11:41] LABS: HEMOGLOBIN A1c 6.5 %
== END ==
LOC: SKLAB5 08:21
PROVIDERS: ATTEND Family Medicine
DX: E11.9 Type 2 diabetes mellitus without complications (principal)

== ENCOUNTER 2019-02-08 21:11 | Inpatient (IN) | payer MEDICARE, MEDICAID ==
[~2019-02-08] VITALS: Ht 177.8 cm; Wt 99.5 kg
[2019-02-08 21:55] LABS: BASO # 0.1 10^3/uL (0.0-0.2); BASO % 0.8 % (0.0-1.0); EOS # 0.1 10^3/uL (0.0-0.50); EOS % 0.8 % (0.0-3.0); HEMATOCRIT 45.9 % (42.0-52.0); LYMPH # 2.3 10^3/uL (1.5-4.5); LYMPH % 29.3 % (24.0-44.0); MEAN CORPUSCULAR HEMOGLOBIN 30.5 pg (27.0-33.0); MEAN CORPUSCULAR HGB CONC 32.7 g/dl (32.0-36.5); MEAN CORPUSCULAR VOLUME 93.3 fl (80.0-96.0); MONO % 12.4 % (0.0-5.0); NEUTROPHILS # 4.4 10^3/uL (1.8-7.7); NEUTROPHILS % 56.3 % (36.0-66.0); PLATELET COUNT, AUTOMATED 212 10^3/uL (150-450); RED BLOOD COUNT 4.92 10^6/uL (4.30-6.10); WHITE BLOOD COUNT 7.8 10^3/uL (4.0-10.0)
[2019-02-08 22:06] LABS: INR 0.92; PROTHROMBIN TIME 12.4 SECONDS (12.1-14.4)
--- NOTE | 2019-02-08 22:59 | REPVR ---
EXAM: CT Head Without Contrast EXAM DATE/TIME: 02/08/2019 9:55 PM CLINICAL HISTORY: 73 years old, male; Signs and symptoms; Altered mental status/memory loss; Confusion or disorientation; Additional info: CVA TECHNIQUE: Imaging protocol: Axial computed tomography images of the head without contrast. Radiation optimization: All CT scans at this facility use at least one of these dose optimization techniques: automated exposure control; mA and/or kV adjustment per patient size (includes targeted exams where dose is matched to clinical indication); or iterative reconstruction. COMPARISON: CT Head without contrast 09/06/2018 11:22 AM FINDINGS: Brain: There is parenchymal volume loss. White matter changes are demonstrated in the subcortical, centrum semiovale and periventricular white matter consistent with small vessel white matter angiopathic gliosis. Multiple bilateral chronic lacunar infarcts. Ventricles: The degree of ventricular dilatation is normal for age. No pathologic enlargement demonstrated. Bones/joints: Unremarkable. No acute fracture. Sinuses: Visualized sinuses are unremarkable. No fluid levels. Mastoid air cells: Visualized mastoid air cells not pneumatized. Soft tissues: Unremarkable. IMPRESSION: There is parenchymal volume loss. White matter changes are demonstrated in the subcortical, centrum semiovale and periventricular white matter consistent with small vessel white matter angiopathic gliosis. Electronically signed by: Jerardo Martin On 02/08/2019 22:59:16 PM
--- NOTE | 2019-02-08 23:02 | REPVR ---
EXAM: CT Cervical Spine Without Contrast EXAM DATE/TIME: 02/08/2019 9:55 PM CLINICAL HISTORY: 73 years old, male; Injury or trauma; Fall; Initial encounter; Blunt trauma TECHNIQUE: Imaging protocol: Axial computed tomography images of the cervical spine without contrast. Coronal and sagittal reformatted images were created and reviewed. Radiation optimization: All CT scans at this facility use at least one of these dose optimization techniques: automated exposure control; mA and/or kV adjustment per patient size (includes targeted exams where dose is matched to clinical indication); or iterative reconstruction. COMPARISON: No relevant prior studies available. FINDINGS: Vertebrae: Reversal of normal cervical lordosis. Discs/Spinal canal/Neural foramina: Disc space narrowing at C5-6, C6-7 and C7-T1 with intervertebral osteophytes. Degenerative changes at the atlantoaxial joint. Moderate bilateral foraminal stenosis at C3, moderate bilateral foraminal stenosis at C4, severe bilateral foraminal stenosis at C5, severe bilateral foraminal stenosis at C6 secondary to uncinate joint hypertrophic changes. Posterior disc protrusion at C4-5, disc osteophyte complex at C5-6 and C6-7 with mild cord impingement at C5-6 and C6-7. Soft tissues: Unremarkable. Lungs: Lung apices are normal. IMPRESSION: Degenerative spondylosis. No acute findings. Electronically signed by: Jerardo Martin On 02/08/2019 23:02:20 PM
[2019-02-08 23:05] LABS: ALBUMIN 3.4 GM/DL (3.2-5.2); ALT/SGPT 11 U/L (12-78); BILIRUBIN,DIRECT 0.1 MG/DL (0.0-0.2); BILIRUBIN,TOTAL 0.2 MG/DL (0.2-1.0); BLOOD UREA NITROGEN 20 MG/DL (7-18); CALCIUM LEVEL 9.1 MG/DL (8.8-10.2); CARBON DIOXIDE LEVEL 30 MEQ/L (21-32); CHLORIDE LEVEL 105 MEQ/L (98-107); CPK CREATINE PHOSPHOKINASE 59 U/L (39-308); CREATININE FOR GFR 0.87 MG/DL (0.70-1.30); ETHYL ALCOHOL (ETHANOL) < 0.003 % (0.000-0.010); GLOMERULAR FILTRATION RATE > 60.0 (>42); GLUCOSE, FASTING 131 MG/DL (70-100); MB/CK RELATIVE INDEX 2.71 (< OR =4); POTASSIUM SERUM 4.2 MEQ/L (3.5-5.1); SODIUM LEVEL 142 MEQ/L (136-145); TOTAL PROTEIN 6.7 GM/DL (6.4-8.2); TROPONIN I < 0.02 NG/ML (< 0.10)
[2019-02-08] MEDS ORDERED: cefTRIAXone SOD 1 GM in D5W MINI-BAG PLUS 50 ML IV ONE (23:30)
[2019-02-09] MEDS ORDERED: VITA500079 PO (01:04)
[2019-02-09] MEDS ORDERED: ENEMENE PR (01:04)
[2019-02-09] MEDS ORDERED: CLOP75TA2 PO (01:04)
[2019-02-09] MEDS ORDERED: [UNRECOGNIZED DRUG - CODE] PO (01:04)
[2019-02-09] MEDS ORDERED: DULC10SU2 PR (01:04)
[2019-02-09] MEDS ORDERED: LEXA5TAB13 PO (01:04)
[2019-02-09] MEDS ORDERED: ASPI81CH33 PO (01:04)
[2019-02-09] MEDS ORDERED: MOM30SS PO (01:04)
[2019-02-09] MEDS ORDERED: TYLE650T35 PO (01:04)
[2019-02-09] MEDS ORDERED: LISI-1046 PO (01:04)
[2019-02-09] MEDS ORDERED: SENN1TAB41 PO (01:04)
[2019-02-09] MEDS ORDERED: VENTAER INH (01:04)
[2019-02-09] MEDS ORDERED: FLOM0.4C39 PO (01:04)
[2019-02-09] MEDS ORDERED: ACET-907 PO (01:04)
[2019-02-09] MEDS ORDERED: JARD1TAB3 PO (01:04)
[2019-02-09] MEDS ORDERED: CARB25TA9 PO (01:04)
[2019-02-09] MEDS ORDERED: SIMV20TA2 PO (01:04)
[2019-02-09] MEDS ORDERED: GLIP5TAB8 PO (01:04)
[2019-02-09] MEDS ORDERED: METO50TA7 PO (01:04)
[2019-02-09] MEDS ORDERED: ALBUTEROL 90 MCG/ACT 8GM HFA INHALER INH PRN (01:30)
[2019-02-09] MEDS ORDERED: ACETAMINOPHEN TAB 650MG DOSE (2X325MG) PO PRN (01:30)
[2019-02-09] MEDS ORDERED: MOM 30ML SUSPENSION UDC PO PRN (01:30)
[2019-02-09] MEDS ORDERED: NS 1,000 ML IV SCH (01:30)
[2019-02-09] MEDS ORDERED: BISACODYL 10 MG SUPP PR PRN (01:30)
--- NOTE | 2019-02-09 01:33 | HPEPDOC ---
General Date of Admission 02/08/2019 Date of Service: Feb 08, 2019 Attending Physician: CAROL COLEMAN MD Chief Complaint The patient is a 73-year-old male admitted with a reason for visit of Ams/Fall. Source: Old records Exam Limitations: Physical impairment, Hard of hearing Timing/Duration: 24 hours Associated Symptoms: Unobtainable History of Present Illness Mr. Tavares is a 73-year-old male who presents to [facility]'s Emergency Department with fall. He is by himself alone. He is a resident of [facility]. No history is obtainable from the patient and all is obtained from chart review and EMS/ED documentation. It was noted that patient was walking outside by [facility] when he appeared to stumble and lower himself to the ground. A fingerstick blood glucose level was checked and was 86. No seizure activity was documented. Emergency Department evaluation revealed stable vital signs. Mildly elevated ammonia level at 45. Urinalysis positive for urinary tract infection. Urine culture pending. CT head unremarkable. CT C-spine unremarkable. Patient was previously hospitalized from 07/02/2018 to 07/07/2018 for a CVA. He was found down at home. Noted at that time was some right hand balance wheel facer weakness and expressive aphasia. Apparently he was covered in urine, feces, and vomitus. During hospitalization, a NG tube was placed, neurology was consulted, and a MRI/MRA brain was obtained which revealed several subacute left parietal lobe infarctions. He was started on ASA and a statin. He passed a swallow evaluation. He was started on Amlodipine for elevated blood pressure. He was discharged to physical therapy. He was most recently seen at [facility] on 01/23/2019. Documented is that patient is hard of hearing, although he is alert and awake. No changes were made to his medications. He continues to follow with audiology and neurology and was seen by ENT. Documented is that patient has a MOLST form stating no intubations, no resuscitation, comfort measures, no hospitalization, no tube feedings. However, I have personally spoken with his daughter, Diana Eid, , who has stated that she would like her father admitted and treated. Hospitalist service was consulted and patient was admitted for further medical management. Home Medications Scheduled Acetaminophen (Tylenol Arthritis) 650 Mg Tablet.er, 650 MG PO BID, (Reported) Aspirin (Aspirin) 81 Mg Tab.chew, 81 MG PO DAILY, (Reported) Carbidopa/Levodopa (Carbidopa-Levodopa 25-100 Tab) 1 Each Tablet, 1 TAB PO TID, (Reported) Cholecalciferol (Vitamin D3) (Vitamin D3) 5,000 Unit Tab.rapdis, 5,000 UNIT PO DAILY, (Reported) Clopidogrel Bisulfate (Clopidogrel) 75 Mg Tablet, 75 MG PO DAILY, (Reported) Empagliflozin (Jardiance) 25 Mg Tablet, 25 MG PO DAILY, (Reported) Escitalopram Oxalate (Lexapro) 5 Mg Tablet, 5 MG PO DAILY, (Reported) Glipizide (Glipizide) 5 Mg Tablet, 5 MG PO DAILY, (Reported) Lisinopril (Lisinopril) 2.5 Mg Tablet, 2.5 MG PO DAILY, (Reported) Metformin HCl (Fortamet) 1,000 Mg Tab.er.24, 1,000 MG PO BID, (Reported) 0800, 1700 Metoprolol Tartrate (Metoprolol Tartrate) 50 Mg Tablet, 50 MG PO BID, (Reported) 0800, 1700 Sennosides/Docusate Sodium (Senna-S Tablet) 1 Each Tablet, 2 TAB PO DAILY, (Reported) Simvastatin (Simvastatin) 20 Mg Tablet, 20 MG PO QHS, (Reported) Tamsulosin HCl (Flomax) 0.4 Mg Capsule, 0.4 MG PO DAILY, (Reported) Scheduled PRN Acetaminophen (Tylenol) 325 Mg Tablet, 650 MG PO Q4H PRN for PAIN / FEVER, (Reported) Albuterol Sulfate (Ventolin Hfa) 18 Gm Hfa.aer.ad, 2 PUFF INH Q4H PRN for SHORTNESS OF BREATH, (Reported) Bisacodyl (Dulcolax) 10 Mg Supp.rect, 10 MG MN DAILY PRN for CONSTIPATION, (Reported) Milk Of Magnesia (Milk of Magnesia) 2,400 Mg/10 Ml Oral.susp, 10 ML PO DAILY PRN for CONSTIPATION, (Reported) Sodium Phosphate,[place]-Dibasic (Enema) 133 Ml Enema, 1 KAELYN MN DAILY PRN for CONSTIPATION, (Reported) Allergies Coded Allergies: No Known Allergies (Unverified , 02/08/19) Past Medical History Medical History 1. CVA with residual left arm weakness 2. HTN 3. DLP 4. IDDM2 5. BPH 6. History of tobacco dependence 7. Left ventricular hypertrophy 8. Grade I diastolic dysfunction Surgical History 1. Prostatectomy 2. Mediastinal mass excision - dermoid cyst 3. Colonoscopy 4. Polypectomy 5. Basal cell carcinoma excision, left ear Family History Obtained from chart review: Father: Mother: , GBS Siblings - Brothers: x4 - Sisters: x2 Children - Daughter: x1 Social History * Smoker: former Smoker Alcohol: Denies Drugs: denies Obtained from chart review: resident of [facility]. Retire. Single. A-FIB/CHADSVASC A-FIB History Current/History of A-Fib/PAF?: No Review of Systems Other systems Unobtainable. Physical Examination General Exam: Positive: Alert, Cooperative Eye Exam: Positive: PERRLA, Conjunctiva & lids normal, EOMI; Negative: Sclera icteric, Ptosis ENT Exam: Positive: Atraumatic, Mucous membr. moist/pink, Tongue Midline, Nares Patent Neck Exam: Positive: Supple, +2 carotid pulse wo bruit; Negative: JVD, thyromegaly, Lymphadenopathy Chest Exam: Positive: Clear to auscultation, Normal air movement, Diminished; Negative: Rales, Rhonchi, Wheezing Heart Exam: Positive: Rate Normal, Regular Rhythm, Normal S1, Normal S2; Negative: Gallops, Murmurs, Rubs Abdomen Exam: Positive: BS Hypoactive, Soft; Negative: Tenderness, Hepatospenomegaly, Mass, Hernia Extremity Exam: Positive: Normal pulses; Negative: Clubbing, Cyanosis, Edema, Tenderness, Swelling Skin Exam: Positive: Lesion (anterior lower legs, B/L); Negative: Rash Neuro Exam: Positive: Other (unable to participate in much of the neurological examination); Negative: Normal Speech, Strength at 5/5 X4 ext (5/5 RUE, 5-/5 LUE) Psych Exam: Negative: Oriented x 3 Other physical findings 1. Chest x-ray - No official report. 2. CT head without contrast - There is parenchymal volume loss. White matter changes are demonstrated in the subcortical, centrum semiovale and periventr icular white matter consistent with small vessel white matter angiopathic gliosis. 3. CT C-spine without contrast - Degenerative spondylosis. No acute findings. Vital Signs Vital Signs Date Time Temp Pulse Resp B/P (MAP) Pulse Ox O2 Delivery O2 Flow Rate FiO2 02/08/19 22:46 179/74 (109) 02/08/19 22:41 83 92 02/08/19 21:31 Room Air 02/08/19 21:17 98.9 20 Height (in): 70 Weight (kg): 104.5 BMI (kg): 33.1 Laboratory Data Labs 24H Laboratory Tests 2 02/08/19 21:42: Prothrombin Time 12.4, Prothromb Time International Ratio 0.92, Activated Partial Thromboplast Time 32.0, Anion Gap 7L, Glomerular Filtration Rate > 60.0, Calcium Level 9.1, Aspartate Amino Transf (AST/SGOT) 9, Alanine Aminotransferase (ALT/SGPT) 11L, Alkaline Phosphatase 85, Total Bilirubin 0.2, Direct Bilirubin 0.1, Ammonia 45H, Total Creatine Kinase 59, Creatine Kinase MB 2.0, Creatine Kinase MB Relative Index 2.71, Troponin I < 0.02, Total Protein 6.7, Albumin 3.4, Albumin/Globulin Ratio 1.03, Thyroid Stimulating Hormone (TSH) 1.420, Free Thyroxine 0.80, Ethyl Alcohol Level < 0.003 02/08/19 21:43: Immature Granulocyte % (Auto) 0.4, White Blood Count 7.8, Red Blood Count 4.92, Hemoglobin 15.0, Hematocrit 45.9, Mean Corpuscular Volume 93.3, Mean Corpuscular Hemoglobin 30.5, Mean Corpuscular Hemoglobin Concent 32.7, Red Cell Distribution Width 13.6, Platelet Count 212, Neutrophils (%) (Auto) 56.3, Lymphocytes (%) (Auto) 29.3, Monocytes (%) (Auto) 12.4H, Eosinophils (%) (Auto) 0.8, Basophils (%) (Auto) 0.8, Neutrophils # (Auto) 4.4, Lymphocytes # (Auto) 2.3, Monocytes # (Auto) 1.0H, Eosinophils # (Auto) 0.1, Basophils # (Auto) 0.1, Nucleated Red Blood Cells % (auto) 0.0 02/08/19 22:40: Urine Color YELLOW, Urine Appearance HAZY, Urine pH 5.0, Urine Specific [place] 1.030, Urine Protein NEGATIVE, Urine Glucose (UA) 3+H, Urine Ketones TRACEH, Urine Blood NEGATIVE, Urine Nitrite NEGATIVE, Urine Bilirubin NEGATIVE, Urine Urobilinogen 0.2, Urine Leukocyte Esterase 1+H, Urine WBC (Auto) 71H, Urine RBC (Auto) 6H, Urine Hyaline Casts (Auto) 0, Urine Bacteria (Auto) NEGATIVE, Urine Squamous Epithelial Cells 1, Urine Mucus (Auto) SMALL, Urine Sperm (Auto) CBC/BMP Laboratory Tests 02/08/19 21:42 02/08/19 21:43 Red Blood Count 4.92, Mean Corpuscular Volume 93.3, Mean Corpuscular Hemoglobin 30.5, Mean Corpuscular Hemoglobin Concent 32.7, Red Cell Distribution Width 13.6, Neutrophils (%) (Auto) 56.3, Lymphocytes (%) (Auto) 29.3, Monocytes (%) (Auto) 12.4 H, Eosinophils (%) (Auto) 0.8, Basophils (%) (Auto) 0.8, Neutrophils # (Auto) 4.4, Lymphocytes # (Auto) 2.3, Monocytes # (Auto) 1.0 H, Eosinophils # (Auto) 0.1, Basophils # (Auto) 0.1 Microbiology Microbiology 02/08/19 Urine Culture, Received Pending Plan / VTE VTE Prophylaxis Ordered?: Yes (Plavix 75mg PO daily) Plan Plan 1. Fall 2/2 AMS 2/2 UTI vs. TIA Patient has residual left-sided deficits; limited exam due to patient's clinical and physical impairments CT head unremarkable Obtaining MRI brain -> consider neurology consult in AM Continue with ASA, Simvastatin, Plavix Neurological checks Q4H, bed rest Aspiration precautions OT/PT Telemetry monitoring Permissive HTN for 24-48 hours; holding Lisinopril 2. Abnormal urinalysis 2/2 UTI Urine culture ordered Ceftriaxone 1mg IV Q24H NS @ 125 mLs/hr Lactic acid, procalcitonin ordered 3. HTN Holding Lisinopril for 24-48 hours (permissive HTN) 2g sodium diet 4. Depression Continue Lexapro 5. BPH Continue Flomax 6. Constipation Continue MoM, Senokot, Dulcolax Disposition Admit: Med/Surg with telemetry Anticipated hospitalization: 2 nights IVF: Initiate (NS @ 125 mLs/hr) Diet: Continue Current (2g sodium) Activity: Bedrest Therapy: PT, OT Medications: Bowel Regimen, Start Antibiotics (Ceftriaxone 1gm IV Q24H) Diagnostics: Check Labs, Repeat Labs in AM, Obtain Cultures (urine) Anticipated Discharge: Half-Way ([facility]) GME ATTESTATION GME ATTESTATION My faculty preceptor for this patient encounter was physically present during the encounter and was fully available. All aspects of the patient interview, examination, medical decision making process, and medical care plan development were reviewed and approved by the faculty preceptor. The faculty preceptor is aware and concurs with the plan as stated in the body of this note and will attest to such by his/her cosignature. ATTENDING NOTE ATTENDING ATTESTATION: I performed a history and physical examination of the patient and discuss the management with the resident/SPORTS MANAGEMENT PROFESSOR. I reviewed the resident's note and agree with the documented findings and plan of care. ZAHIRA HUMPHREYS DO Feb 09, 2019 00:43 CAROL COLEMAN MD Feb 10, 2019 00:27
[2019-02-09 06:15] LABS: HEMATOCRIT 46.3 % (42.0-52.0); HEMOGLOBIN 15.5 g/dl (13.5-17.5); MEAN CORPUSCULAR HEMOGLOBIN 31.6 pg (27.0-33.0); MEAN CORPUSCULAR HGB CONC 33.5 g/dl (32.0-36.5); MEAN CORPUSCULAR VOLUME 94.5 fl (80.0-96.0); PLATELET COUNT, AUTOMATED 189 10^3/uL (150-450); WHITE BLOOD COUNT 9.7 10^3/uL (4.0-10.0)
[2019-02-09 06:38] LABS: BLOOD UREA NITROGEN 15 MG/DL (7-18); CALCIUM LEVEL 8.6 MG/DL (8.8-10.2); CARBON DIOXIDE LEVEL 26 MEQ/L (21-32); CHLORIDE LEVEL 108 MEQ/L (98-107); CREATININE FOR GFR 0.71 MG/DL (0.70-1.30); GLOMERULAR FILTRATION RATE > 60.0 (>42); GLUCOSE, FASTING 114 MG/DL (70-100); SODIUM LEVEL 140 MEQ/L (136-145)
--- NOTE | 2019-02-09 08:54 | REP ---
PORTABLE CHEST: AP portable view of the chest is performed and compared to a prior study of 07/02/2018. There is mild cardiomegaly. There is no acute infiltrate. There is calcification of the thoracic aorta. The mediastinal silhouette is unchanged. Multiple sternal wires and mediastinal clips are present. There are degenerative changes of the spine. Electronically Signed by Masoud Mendenhall MD 02/12/2019 05:01 P
[2019-02-09] MEDS: SINEMET 25-100 MG TAB PO SCH ×3 (09:00→21:04)
[2019-02-09] MEDS ORDERED: LISINOPRIL *2.5 MG* TAB PO SCH (09:00)
[2019-02-09] MEDS: ACETAMINOPHEN 650MG ER TAB (TYLENOL ARTHRITIS) PO SCH ×2 (09:00→21:04)
[2019-02-09] MEDS ORDERED: METOPROLOL TART 50 MG TAB PO SCH (09:00)
[2019-02-09] MEDS: ESCITALOPRAM OXALATE 5MG TABLET (LEXAPRO) PO SCH (09:00)
[2019-02-09] MEDS: TAMSULOSIN 0.4 MG CAP PO SCH (09:01)
[2019-02-09] MEDS: SENOKOT S TAB PO SCH (09:01)
[2019-02-09] MEDS: CLOPIDOGREL 75 MG TAB PO SCH (09:01)
[2019-02-09] MEDS: ASPIRIN 81 MG CHEW TABLET PEG SCH (09:01)
[2019-02-09] MEDS: VITAMIN D 1,000 INTERNATIONAL UNITS TABLET PO SCH (09:01)
[2019-02-09 09:02] VITALS: BP 153/66
[2019-02-09 12:00] VITALS: BP 173/69
--- NOTE | 2019-02-09 13:20 | IPNPDOC ---
Text Note Date of Service The patient was seen on 02/09/19. NOTE Subjective: Patient is a 73-year-old male from [facility] with a PMHx of Dementia, CVA (w/ residual L arm weakness), Diastolic CHF, HTN, DLP, IDDM2, BPH , who pr esented to the emergency room after he was walking outside of [facility] stumbled and placed himself on the ground. No seizure activity was documented Patient has had a recent hospitalization for CVA and was subsequently transitioned to [facility] for further rehabilitation, since 01/23/2019. Documented is that patient has a MOLST form stating no intubations, no resuscitation, comfort measures, no hospitalization, no tube feedings. However, admitting provider had a discussion with daughter, Diana Eid, , who has stated that she would like her father admitted and treated. Hospitalist service was consulted and patient was admitted for further medical management. Patient was seen and examined at the bedside. Currently patient is aware of his name and current location. He is unsure of the date. Is difficult for him to communicate. He denies any significant pain. Objective: Vitals (See below) General: Lying in bed, no acute distress, comfortable, Awake / Alert; Oriented to person / place HEENT: NC, AT CVS: RRR, +S1S2 Lungs: Fair air entry b/l, no auscultated wheezing, rhonchi or rales Abdomen: Soft, ND, NT Extremities: - Edema, - Calf tenderness Neuro: Left arm weakness noted Assessment and plan: Mechanical fall - possibly 2/2 acute CVA, possibly 2/2 acute metabolic encephalopathy - 2/2 UTI - Patient had apparently fallen to [facility] - Physical still reveals left arm weakness - CT head 02/08: There is parenchymal volume loss. White matter changes are demonstrated in the subcortical, centrum semiovale and periventricular white matter consistent with small vessel white matter angiopathic gliosis. - CT cervical spine 02/08: Degenerative spondylosis. No acute findings. - Will evaluate with MRI brain - c/w Telemetry monitoring - c/w ASA, Plavix and Simvastatin Possible acute metabolic encephalopathy in the setting of an abnormal urinalysis - Patient remains afebrile and hemodynamically stable - Concern that the patient might have a urinary tract infection - Urinalysis is consistent with infection; Urine culture 02/08: Pending - c/w Ceftriaxone (Day #1) HTN - Bp moderately controlled - c/w metoprolol - Lisinopril on hold (re: possibility of stroke - allow permissive HTN) Depression - c/w Escitalopram BPH - c/w Tamsulosin Constipation - c/w Bowel reigmen as ordered DVT prophylaxis - Will start Heparin VS,Fishbone, I+O VS, Fishbone, I+O Laboratory Tests 02/08/19 21:42 02/08/19 21:43 Red Blood Count 4.92, Mean Corpuscular Volume 93.3, Mean Corpuscular Hemoglobin 30.5, Mean Corpuscular Hemoglobin Concent 32.7, Red Cell Distribution Width 13.6, Neutrophils (%) (Auto) 56.3, Lymphocytes (%) (Auto) 29.3, Monocytes (%) (Auto) 12.4 H, Eosinophils (%) (Auto) 0.8, Basophils (%) (Auto) 0.8, Neutrophils # (Auto) 4.4, Lymphocytes # (Auto) 2.3, Monocytes # (Auto) 1.0 H, Eosinophils # (Auto) 0.1, Basophils # (Auto) 0.1 02/09/19 05:59 Red Blood Count 4.90, Mean Corpuscular Volume 94.5, Mean Corpuscular Hemoglobin 31.6, Mean Corpuscular Hemoglobin Concent 33.5, Red Cell Distribution Width 13.5, Calcium Level 8.6 L Vital Signs Date Time Temp Pulse Resp B/P (MAP) Pulse Ox O2 Delivery O2 Flow Rate FiO2 02/09/19 12:00 59 02/09/19 11:58 18 173/69 (103) 97 Room Air 02/09/19 08:00 97.6 02/09/19 06:01 2.0 I&O- Last 24 Hours up to 6 AM 02/09/19 06:00 Output Total 300 ml Balance -300 ml PALMIRA HAYDEN MD Feb 09, 2019 13:20
[2019-02-09] MEDS: HEPARIN SOD (PORCINE) 5000 UNITS/ML VIAL SQ SCH ×2 (14:35→21:04)
[2019-02-09] MEDS ORDERED: GLUCAGON FOR INJ 1 MG VIAL (J1610) SC PRN (15:15)
[2019-02-09] MEDS ORDERED: GLUCOSE 4 GM CHEW TABLET PO PRN (15:15)
[2019-02-09] MEDS ORDERED: DEXTROSE 50% 50 ML SYRINGE IV PRN (15:15)
[2019-02-09 15:18] VITALS: BP 164/69
[2019-02-09] MEDS: HumaLOG INSULIN (NovoLOG) PER UNIT SC SCH ×2 (17:06→21:00)
[2019-02-09 18:00] VITALS: BP 151/82
[2019-02-09] MEDS: cefTRIAXone SOD 1 GM in D5W MINI-BAG PLUS 50 ML IV SCH (21:03)
[2019-02-09] MEDS: SIMVASTATIN 20 MG TAB PO SCH (21:04)
--- NOTE | 2019-02-09 21:04 | REPVR ---
EXAM: MR Head Without Contrast EXAM DATE/TIME: 02/09/2019 8:13 PM CLINICAL HISTORY: 73 years old, male; Signs and symptoms; Altered mental status/memory loss and speech disturbance; Confusion or disorientation; Slurred speech; Patient HX: HX of strokes; Additional info: R/O stroke TECHNIQUE: Imaging protocol: MR of the head without contrast. COMPARISON: MRI-Brain without Contrast 07/03/2018 9:41 AM FINDINGS: Brain: A focal left fernandes radiata lacunar infarct is new since the prior study demonstrating T2 shine through on the DWI and ADC sequences; consistent with a subacute or chronic infarct. T2 shine through in the right fernandes radiata, as before. No evidence of acute infarct. The brain demonstrates generalized volume loss. Patchy increased signal intensity deep white matter and kimberly, as before, consistent with chronic small vessel ischemic change. There are numerous chronic bilateral chronic deep white matter infarcts. Chronic lacunar infarcts again demonstrated in the left paramedian kimberly and left thalamus. A chronic left basal ganglia lacunar infarct, as before, this demonstrates hemosiderin staining on the gradient echo imaging in keeping with chronic blood product. Ventricles: The ventricles are stable in size, the ventricles appear enlarged in keeping with volume loss. Bones/joints: Unremarkable. Soft tissues: Normal. Sinuses: Trace ethmoid mucosal thickening. Mastoid air cells: Normal as visualized. No mastoid effusion. Orbits: Prior right lens surgery. IMPRESSION: 1. No evidence of acute infarct. 2. A focal subacute or chronic left fernandes radiata lacunar infarct, new since the prior study. 3. Considerable chronic ischemic changes in the deep white and numerous old lacunar infarcts, as before. Electronically signed by: Kate King On 02/09/2019 21:04:16 PM
[2019-02-09 22:00] VITALS: BP_SYST 143; BP_SYST 164; BP_DIAS 63; BP_DIAS 72
[2019-02-10 02:00] VITALS: BP 168/77
[2019-02-10] MEDS: HEPARIN SOD (PORCINE) 5000 UNITS/ML VIAL SQ SCH ×3 (05:04→21:12)
[2019-02-10 06:00] VITALS: BP 136/70
[2019-02-10 06:03] LABS: HEMATOCRIT 46.7 % (42.0-52.0); HEMOGLOBIN 15.1 g/dl (13.5-17.5); MEAN CORPUSCULAR HEMOGLOBIN 30.3 pg (27.0-33.0); MEAN CORPUSCULAR HGB CONC 32.3 g/dl (32.0-36.5); MEAN CORPUSCULAR VOLUME 93.8 fl (80.0-96.0); PLATELET COUNT, AUTOMATED 192 10^3/uL (150-450); RED BLOOD COUNT 4.98 10^6/uL (4.30-6.10); WHITE BLOOD COUNT 7.2 10^3/uL (4.0-10.0)
[2019-02-10 06:20] LABS: BLOOD UREA NITROGEN 14 MG/DL (7-18); CALCIUM LEVEL 8.7 MG/DL (8.8-10.2); CARBON DIOXIDE LEVEL 27 MEQ/L (21-32); CHLORIDE LEVEL 110 MEQ/L (98-107); CREATININE FOR GFR 0.64 MG/DL (0.70-1.30); GLOMERULAR FILTRATION RATE > 60.0 (>42); GLUCOSE, FASTING 99 MG/DL (70-100); SODIUM LEVEL 142 MEQ/L (136-145)
[2019-02-10] MEDS: HumaLOG INSULIN (NovoLOG) PER UNIT SC SCH ×4 (07:30→21:00)
--- NOTE | 2019-02-10 08:24 | ECGEPIP ---
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
[2019-02-10] MEDS: CLOPIDOGREL 75 MG TAB PO SCH (09:49)
[2019-02-10] MEDS: ESCITALOPRAM OXALATE 5MG TABLET (LEXAPRO) PO SCH (09:49)
[2019-02-10] MEDS: SINEMET 25-100 MG TAB PO SCH ×3 (09:49→21:12)
[2019-02-10] MEDS: TAMSULOSIN 0.4 MG CAP PO SCH (09:49)
[2019-02-10] MEDS: ASPIRIN 81 MG CHEW TABLET PEG SCH (09:49)
[2019-02-10] MEDS: VITAMIN D 1,000 INTERNATIONAL UNITS TABLET PO SCH (09:49)
[2019-02-10] MEDS: SENOKOT S TAB PO SCH (09:49)
[2019-02-10] MEDS: ACETAMINOPHEN 650MG ER TAB (TYLENOL ARTHRITIS) PO SCH ×2 (09:49→21:12)
[2019-02-10 10:00] VITALS: BP 141/69
--- NOTE | 2019-02-10 12:50 | IPNPDOC ---
Text Note Date of Service The patient was seen on 02/10/19. NOTE Subjective: Patient is a 73-year-old male from [facility] with a PMHx of Dementia, CVA (w/ residual L arm weakness), Diastolic CHF, HTN, DLP, IDDM2, BPH , who pr esented to the emergency room after he was walking outside of [facility] stumbled and placed himself on the ground. No seizure activity was documented Patient has had a recent hospitalization for CVA and was subsequently transitioned to [facility] for further rehabilitation, since 01/23/2019. Documented is that patient has a MOLST form stating no intubations, no resuscitation, comfort measures, no hospitalization, no tube feedings. However, admitting provider had a discussion with daughter, Diana Eid, , who has stated that she would like her father admitted and treated. Hospitalist service was consulted and patient was admitted for further medical management. Patient was seen and examined at the bedside. Patient reports no new problems. He experienced a very difficult time hearing. Denies any chest pain, shortness of breath, palpitations. Has not gotten out of bed. Objective: Vitals (See below) General: Lying in bed, no acute distress, comfortable, Awake / Alert; Oriented to person / place HEENT: NC, AT CVS: RRR, +S1S2 Lungs: Fair air entry b/l, auscultation without rhonchi, rales or wheezing Abdomen: Soft, nondistended and nontender, obese Extremities: No evidence of lower extremity edema, - Calf tenderness Neuro: Left arm weakness noted Assessment and plan: Mechanical fall - possibly 2/2 subacute CVA, possibly 2/2 acute metabolic encephalopathy - 2/2 UTI - Patient had apparently fallen at [facility] - Physical still reveals left arm weakness - CT head 02/08: There is parenchymal volume loss. White matter changes are demonstrated in the subcortical, centrum semiovale and periventricular white matter consistent with small vessel white matter angiopathic gliosis. - CT cervical spine 02/08: Degenerative spondylosis. No acute findings. - MRI Brain 02/09: 1. No evidence of acute infarct. 2. A focal subacute or chronic left fernandes radiata lacunar infarct, new since the prior study. 3. Considerable chronic ischemic changes in the deep white and numerous old lacunar infarcts, as before. - c/w Telemetry monitoring for 48 hours - s/p Neuro checks - c/w ASA, Plavix and Simvastatin - Discussed findings with family Possible acute metabolic encephalopathy in the setting of an abnormal urinalysis - Patient remains afebrile and hemodynamically stable - Concern that the patient might have a urinary tract infection - Urinalysis is consistent with infection; Urine culture 02/08: Pending - c/w Ceftriaxone (Day #2) Coughing while eating - possibly 2/2 aspiration - Remains hemodynamically stable and saturating at 94% on room air - Will repeat CXR HTN - Bp moderately controlled - c/w metoprolol - Lisinopril on hold (re: possibility of stroke - allow permissive HTN) NIDDM2 - c/w ISS Depression - c/w Escitalopram BPH - c/w Tamsulosin Constipation - c/w Bowel regimen as ordered DVT prophylaxis - c/w Heparin VS,Fishbone, I+O VS, Fishbone, I+O Laboratory Tests 02/10/19 05:34 Red Blood Count 4.98, Mean Corpuscular Volume 93.8, Mean Corpuscular Hemoglobin 30.3, Mean Corpuscular Hemoglobin Concent 32.3, Red Cell Distribution Width 13.4, Calcium Level 8.7 L Vital Signs Date Time Temp Pulse Resp B/P (MAP) Pulse Ox O2 Delivery O2 Flow Rate FiO2 02/10/19 10:00 98.8 61 18 141/69 (93) 94 02/09/19 11:58 Room Air 02/09/19 06:01 2.0 I&O- Last 24 Hours up to 6 AM 02/10/19 06:00 Intake Total 630 ml Balance 630 ml PALMIRA HAYDEN MD Feb 10, 2019 12:50
--- NOTE | 2019-02-10 13:43 | REP ---
The chest one-view HISTORY: Aspiration Comparison: 02/08/2019 The lungs are clear. The cardiac silhouette is enlarged. The pulmonary vasculature is normal in appearance. Impression: Cardiomegaly. Electronically Signed by Doroteo Barker MD 02/10/2019 01:35 P
[2019-02-10 14:00] VITALS: BP 133/63
[2019-02-10 18:00] VITALS: BP 136/86
[2019-02-10] MEDS: SIMVASTATIN 20 MG TAB PO SCH (21:12)
[2019-02-10] MEDS: cefTRIAXone SOD 1 GM in D5W MINI-BAG PLUS 50 ML IV SCH (21:12)
[2019-02-10 22:00] VITALS: BP 148/67
[2019-02-11] MEDS: HEPARIN SOD (PORCINE) 5000 UNITS/ML VIAL SQ SCH ×3 (05:44→21:50)
[2019-02-11 06:00] VITALS: BP_SYST 150; BP_SYST 187; BP_DIAS 77; BP_DIAS 78
[2019-02-11 06:26] LABS: HEMATOCRIT 45.3 % (42.0-52.0); MEAN CORPUSCULAR HEMOGLOBIN 30.5 pg (27.0-33.0); MEAN CORPUSCULAR HGB CONC 33.1 g/dl (32.0-36.5); MEAN CORPUSCULAR VOLUME 92.1 fl (80.0-96.0); PLATELET COUNT, AUTOMATED 198 10^3/uL (150-450); RED BLOOD COUNT 4.92 10^6/uL (4.30-6.10); WHITE BLOOD COUNT 7.8 10^3/uL (4.0-10.0)
[2019-02-11 06:47] LABS: BLOOD UREA NITROGEN 17 MG/DL (7-18); CALCIUM LEVEL 8.5 MG/DL (8.8-10.2); CARBON DIOXIDE LEVEL 26 MEQ/L (21-32); CHLORIDE LEVEL 109 MEQ/L (98-107); CREATININE FOR GFR 0.69 MG/DL (0.70-1.30); GLOMERULAR FILTRATION RATE > 60.0 (>42); GLUCOSE, FASTING 98 MG/DL (70-100); POTASSIUM SERUM 3.9 MEQ/L (3.5-5.1); SODIUM LEVEL 144 MEQ/L (136-145)
[2019-02-11] MEDS: HumaLOG INSULIN (NovoLOG) PER UNIT SC SCH ×4 (07:30→21:00)
[2019-02-11] MEDS: CLOPIDOGREL 75 MG TAB PO SCH (08:38)
[2019-02-11] MEDS: VITAMIN D 1,000 INTERNATIONAL UNITS TABLET PO SCH (08:38)
[2019-02-11] MEDS: TAMSULOSIN 0.4 MG CAP PO SCH (08:38)
[2019-02-11] MEDS: ESCITALOPRAM OXALATE 5MG TABLET (LEXAPRO) PO SCH (08:38)
[2019-02-11] MEDS: SINEMET 25-100 MG TAB PO SCH ×3 (08:39→21:50)
[2019-02-11] MEDS: ASPIRIN 81 MG CHEW TABLET PEG SCH (08:39)
[2019-02-11] MEDS: SENOKOT S TAB PO SCH (08:39)
[2019-02-11] MEDS: ACETAMINOPHEN 650MG ER TAB (TYLENOL ARTHRITIS) PO SCH ×2 (08:39→21:49)
[2019-02-11 10:00] VITALS: BP 125/67
[2019-02-11 14:00] VITALS: BP 137/71
--- NOTE | 2019-02-11 18:39 | IPNPDOC ---
Subjective Date Seen The patient was seen on 02/11/19. Subjective Chief Complaint/HPI Patient does not respond verbally, nods or shakes his head but does not seem to do so consistently in answer to questions, could not provide history, point to uncomfortable spots, etc. Nursing staff checked re: urine culture; micro not available yet but lab reported that it was growing >100,000 CFU of a Strep species, unclear what Strep. General: Reports: ROS Unobtainable Objective Physical Examination General Exam: Positive: Alert, Cooperative Eye Exam: Positive: PERRLA, Conjunctiva & lids normal, EOMI; Negative: Sclera icteric, Ptosis ENT Exam: Positive: Atraumatic, Mucous membr. moist/pink, Tongue Midline, Nares Patent Neck Exam: Positive: Supple, +2 carotid pulse wo bruit; Negative: JVD, thyromegaly, Lymphadenopathy Chest Exam: Positive: Clear to auscultation, Normal air movement, Diminished; Negative: Rales, Rhonchi, Wheezing Heart Exam: Positive: Rate Normal, Regular Rhythm, Normal S1, Normal S2; Negative: Gallops, Murmurs, Rubs Abdomen Exam: Positive: BS Hypoactive, Soft; Negative: Tenderness, Hepatospenomegaly, Mass, Hernia Extremity Exam: Positive: Normal pulses; Negative: Clubbing, Cyanosis, Edema, Tenderness, Swelling Skin Exam: Negative: Rash Neuro Exam: Positive: Other (unable to participate in much of the neurological examination); Negative: Normal Speech, Strength at 5/5 X4 ext (5/5 RUE, 5-/5 LUE) Psych Exam: Negative: Oriented x 3 Assessment /Plan Problems (1) Urinary tract infection Problem Text: No official culture documented, but nursing staff called the lab and were told that a Strep species was growing, with 100,000 CFU. He is on ceftriaxone. This may be a source of acute confusion. (2) Fall Problem Text: Fall and apparent confusion brought the patient to the hospital. No apparent injuries. (3) Aphasia Problem Text: Per record, this is chronic. (4) History of CVA (cerebrovascular accident) Problem Text: Patient with history of CVA, imaging shows a subacute/chronic infarct, new since 06/2018, as well as numerous lacunar infarcts. As this is subacute/chronic, unlikely to be responsible for acute symptoms. (5) Diabetes mellitus type 2 in obese Problem Text: continue insulin Plan/VTE VTE Prophylaxis Ordered?: Yes (Plavix 75mg PO daily) Plan IVF: Initiate (NS @ 125 mLs/hr) Diet: Continue Current (2g sodium) Activity: Bedrest Therapy: PT, OT Medications: Bowel Regimen, Start Antibiotics (Ceftriaxone 1gm IV Q24H) Diagnostics: Check Labs, Repeat Labs in AM, Obtain Cultures (urine) Anticipated Discharge: Senior Living ([facility]) VS, I&O, 24H, Fishbone Vital Signs/I&O Vital Signs Date Time Temp Pulse Resp B/P (MAP) Pulse Ox O2 Delivery O2 Flow Rate FiO2 02/11/19 14:00 97.2 52 18 137/71 (93) 96 02/09/19 11:58 Room Air 02/09/19 06:01 2.0 I&O- Last 24 Hours up to 6 AM 02/11/19 06:00 Intake Total 910 ml Balance 910 ml Laboratory Data 24H LABS Laboratory Tests 2 02/10/19 20:29: Bedside Glucose (Misc Panel) 176H 02/11/19 05:42: Nucleated Red Blood Cells % (auto) 0.0, Anion Gap 9, Glomerular Filtration Rate > 60.0, Blood Urea Nitrogen 17, Creatinine 0.69L, Sodium Level 144, Potassium Level 3.9, Chloride Level 109H, Carbon Dioxide Level 26, Calcium Level 8.5L 02/11/19 11:37: Bedside Glucose (Misc Panel) 153H 02/11/19 16:29: Bedside Glucose (Misc Panel) 119H CBC/BMP Laboratory Tests 02/11/19 05:42 Red Blood Count 4.92, Mean Corpuscular Volume 92.1, Mean Corpuscular Hemoglobin 30.5, Mean Corpuscular Hemoglobin Concent 33.1, Red Cell Distribution Width 13.5, Calcium Level 8.5 L Microbiology Microbiology 02/08/19 Urine Culture, Received Pending JERAMY BUTLER DO Feb 11, 2019 18:39
[2019-02-11] MEDS: cefTRIAXone SOD 1 GM in D5W MINI-BAG PLUS 50 ML IV SCH (21:49)
[2019-02-11] MEDS: SIMVASTATIN 20 MG TAB PO SCH (21:50)
[2019-02-11 22:00] VITALS: BP 168/85
[2019-02-12 02:00] VITALS: BP 146/71
[2019-02-12] MEDS: HEPARIN SOD (PORCINE) 5000 UNITS/ML VIAL SQ SCH ×3 (05:36→21:39)
[2019-02-12 06:00] VITALS: BP 145/81
[2019-02-12 06:09] LABS: HEMATOCRIT 44.5 % (42.0-52.0); HEMOGLOBIN 14.8 g/dl (13.5-17.5); MEAN CORPUSCULAR HEMOGLOBIN 30.5 pg (27.0-33.0); MEAN CORPUSCULAR HGB CONC 33.3 g/dl (32.0-36.5); MEAN CORPUSCULAR VOLUME 91.8 fl (80.0-96.0); PLATELET COUNT, AUTOMATED 203 10^3/uL (150-450); RED BLOOD COUNT 4.85 10^6/uL (4.30-6.10); WHITE BLOOD COUNT 7.6 10^3/uL (4.0-10.0)
[2019-02-12 06:35] LABS: BLOOD UREA NITROGEN 15 MG/DL (7-18); CALCIUM LEVEL 8.6 MG/DL (8.8-10.2); CARBON DIOXIDE LEVEL 26 MEQ/L (21-32); CHLORIDE LEVEL 108 MEQ/L (98-107); CREATININE FOR GFR 0.62 MG/DL (0.70-1.30); GLOMERULAR FILTRATION RATE > 60.0 (>42); GLUCOSE, FASTING 91 MG/DL (70-100); POTASSIUM SERUM 3.7 MEQ/L (3.5-5.1); SODIUM LEVEL 141 MEQ/L (136-145)
[2019-02-12] MEDS: HumaLOG INSULIN (NovoLOG) PER UNIT SC SCH ×4 (07:25→21:00)
[2019-02-12] MEDS: CLOPIDOGREL 75 MG TAB PO SCH (09:35)
[2019-02-12] MEDS: TAMSULOSIN 0.4 MG CAP PO SCH (09:36)
[2019-02-12] MEDS: ACETAMINOPHEN 650MG ER TAB (TYLENOL ARTHRITIS) PO SCH ×2 (09:36→21:39)
[2019-02-12] MEDS: ESCITALOPRAM OXALATE 5MG TABLET (LEXAPRO) PO SCH (09:36)
[2019-02-12] MEDS: ASPIRIN 81 MG CHEW TABLET PEG SCH (09:36)
[2019-02-12] MEDS: SENOKOT S TAB PO SCH (09:36)
[2019-02-12] MEDS: SINEMET 25-100 MG TAB PO SCH ×3 (09:36→21:39)
[2019-02-12] MEDS: VITAMIN D 1,000 INTERNATIONAL UNITS TABLET PO SCH (09:36)
[2019-02-12 10:00] VITALS: BP 108/62
--- NOTE | 2019-02-12 11:21 | IPNPDOC ---
Subjective Date Seen The patient was seen on 02/12/19. Subjective Chief Complaint/HPI Nursing without new concerns this morning. He has swallow eval pending. [facility] resident, verbal but difficult to comprehend. He does tell me that he doesn't have any pain. General: Reports: ROS Unobtainable Objective Physical Examination General Exam: Positive: Alert, Cooperative Eye Exam: Positive: Sclera icteric ENT Exam: Positive: Mucous membr. moist/pink, Tongue Midline Neck Exam: Positive: Supple Chest Exam: Positive: Clear to auscultation, Normal air movement Heart Exam: Positive: Rate Normal, Regular Rhythm, Normal S1, Normal S2; Negative: Gallops, Murmurs, Rubs Abdomen Exam: Positive: Normal bowel sounds, Soft; Negative: Tenderness, Hepatospenomegaly, Mass, Hernia Extremity Exam: Positive: Normal pulses; Negative: Clubbing, Cyanosis, Edema, Tenderness, Swelling Skin Exam: Negative: Rash Neuro Exam: Positive: Other (unable to participate in much of the neurological examination); Negative: Normal Speech, Strength at 5/5 X4 ext (5/5 RUE, 5-/5 LUE) Psych Exam: Negative: Oriented x 3 Assessment /Plan Problems (1) Urinary tract infection Problem Text: D4 ceftriaxone no BCX 02/08 UCX Strep species, > 100K (2) Fall Problem Text: Fall and apparent confusion brought the patient to the hospital. No apparent injuries. (3) Aphasia Problem Text: 02/12 Swallow eval pending. 02/11 Per record, this is chronic. (4) History of CVA (cerebrovascular accident) Status: Acute Problem Text: Patient with history of CVA, imaging shows a subacute/chronic infarct, new since 06/2018, as well as numerous lacunar infarcts. As this is subacute/chronic, unlikely to be responsible for acute symptoms. (5) Diabetes mellitus type 2 in obese Status: Chronic Problem Text: continue insulin (6) Physical deconditioning Status: Chronic Problem Text: 02/10 PT safe to dc back to [facility] Plan/VTE VTE Prophylaxis Ordered?: Yes (Plavix 75mg PO daily) Plan IVF: Initiate (NS @ 125 mLs/hr) Diet: Continue Current (2g sodium) Activity: Bedrest Therapy: PT, OT Medications: Bowel Regimen, Start Antibiotics (Ceftriaxone 1gm IV Q24H) Diagnostics: Check Labs, Repeat Labs in AM, Obtain Cultures (urine) Anticipated Discharge: Jail ([facility]) VS, I&O, 24H, Fishbone Vital Signs/I&O Vital Signs Date Time Temp Pulse Resp B/P (MAP) Pulse Ox O2 Delivery O2 Flow Rate FiO2 02/12/19 10:00 96.5 73 19 108/62 (77) 94 02/09/19 11:58 Room Air 02/09/19 06:01 2.0 I&O- Last 24 Hours up to 6 AM 02/12/19 06:00 Intake Total 1080 ml Balance 1080 ml Laboratory Data 24H LABS Laboratory Tests 2 02/11/19 11:37: Bedside Glucose (Misc Panel) 153H 02/11/19 16:29: Bedside Glucose (Misc Panel) 119H 02/11/19 20:18: Bedside Glucose (Misc Panel) 136H 02/12/19 05:16: Nucleated Red Blood Cells % (auto) 0.0, Anion Gap 7L, Glomerular Filtration Rate > 60.0, Blood Urea Nitrogen 15, Creatinine 0.62L, Sodium Level 141, Potassium Level 3.7, Chloride Level 108H, Carbon Dioxide Level 26, Calcium Level 8.6L CBC/BMP Laboratory Tests 02/12/19 05:16 Red Blood Count 4.85, Mean Corpuscular Volume 91.8, Mean Corpuscular Hemoglobin 30.5, Mean Corpuscular Hemoglobin Concent 33.3, Red Cell Distribution Width 13.3, Calcium Level 8.6 L Microbiology Microbiology 02/08/19 Urine Culture, Received Pending MARBELLA AVENDANO PA-C Feb 12, 2019 11:21 Mando Carvalho M.D. Feb 12, 2019 17:36
[2019-02-12 14:00] VITALS: BP 133/64
[2019-02-12 17:30] VITALS: BP 129/80
--- NOTE | 2019-02-12 17:48 | NUR ---
Patient presents with moderate to severe oral pharyngeal dysphagia. ST recommends pt continue current diet recommendations of pureed diet w/nectar thick liquids until instrumental assessment can be completed. Feeding strategies recommended to maximize safety during PO intake include: OOB for all meals, small bites/sips with no straw, direct line of sight supervision for meals, and oral care following every meal. FEES study is recommended to determine safest and least restrictive diet. Addendum: 02/12/19 at 1751 by ELIO CORDOBA Amended: Links added.
[2019-02-12] MEDS: cefTRIAXone SOD 1 GM in D5W MINI-BAG PLUS 50 ML IV SCH (21:39)
[2019-02-12] MEDS: SIMVASTATIN 20 MG TAB PO SCH (21:39)
[2019-02-12 22:00] VITALS: BP 144/74
[2019-02-13 02:00] VITALS: BP 141/65
[2019-02-13] MEDS: HEPARIN SOD (PORCINE) 5000 UNITS/ML VIAL SQ SCH (05:46)
[2019-02-13 06:00] VITALS: BP 140/64
[2019-02-13 06:11] LABS: HEMATOCRIT 45.9 % (42.0-52.0); HEMOGLOBIN 15.2 g/dl (13.5-17.5); MEAN CORPUSCULAR HEMOGLOBIN 31.1 pg (27.0-33.0); MEAN CORPUSCULAR HGB CONC 33.1 g/dl (32.0-36.5); MEAN CORPUSCULAR VOLUME 94.1 fl (80.0-96.0); PLATELET COUNT, AUTOMATED 194 10^3/uL (150-450); RED BLOOD COUNT 4.88 10^6/uL (4.30-6.10); WHITE BLOOD COUNT 7.8 10^3/uL (4.0-10.0)
[2019-02-13 06:32] LABS: BLOOD UREA NITROGEN 14 MG/DL (7-18); CALCIUM LEVEL 9.3 MG/DL (8.8-10.2); CARBON DIOXIDE LEVEL 28 MEQ/L (21-32); CHLORIDE LEVEL 108 MEQ/L (98-107); CREATININE FOR GFR 0.66 MG/DL (0.70-1.30); GLOMERULAR FILTRATION RATE > 60.0 (>42); GLUCOSE, FASTING 97 MG/DL (70-100); SODIUM LEVEL 141 MEQ/L (136-145)
[2019-02-13] MEDS: HumaLOG INSULIN (NovoLOG) PER UNIT SC SCH ×2 (07:30→12:56)
[2019-02-13] MEDS: ACETAMINOPHEN 650MG ER TAB (TYLENOL ARTHRITIS) PO SCH (08:33)
[2019-02-13] MEDS: SENOKOT S TAB PO SCH (08:35)
[2019-02-13] MEDS: VITAMIN D 1,000 INTERNATIONAL UNITS TABLET PO SCH (08:35)
[2019-02-13] MEDS: ASPIRIN 81 MG CHEW TABLET PEG SCH (08:35)
[2019-02-13] MEDS: TAMSULOSIN 0.4 MG CAP PO SCH (08:35)
[2019-02-13] MEDS: ESCITALOPRAM OXALATE 5MG TABLET (LEXAPRO) PO SCH (08:35)
[2019-02-13] MEDS: SINEMET 25-100 MG TAB PO SCH (08:35)
[2019-02-13] MEDS: CLOPIDOGREL 75 MG TAB PO SCH (08:35)
[2019-02-13 10:00] VITALS: BP 142/85
--- NOTE | 2019-02-13 13:04 | DSES ---
DATE OF ADMISSION: 02/09/2019 DATE OF DISCHARGE: 02/13/2019 PRIMARY CARE PHYSICIAN: Dr. Graham Serrano ATTENDING TODAY: Dr. Mando Carvalho HISTORY: This is a 73-year-old male patient who resides over at [facility] who presented to [facility] after suffering a fall. His history was limited at time of presentation as he is not able to communicate very effectively. He does have a history of cerebrovascular accident and has expressive aphasia. He was admitted to the hospital for a fall with abnormal urinalysis. During his hospitalization, he has remained medically stable. He has been seen and cleared by physical therapy and is found to have no sequelae associated with his fall. He was felt to likely have urinary tract infection which was treated with ceftriaxone for which he has received a total of four doses. This morning's culture revealed lactobacillus as well as yeast. The yeast has a colony count of 30,000 and is likely associated with colonization and therefore has not been treated. Secondary to the fall, the patient underwent imaging of the brain. MRI of the brain is without any evidence of acute infarct. There is a focal subacute or chronic left fernandes radiata lacunar infarct that was new since previous imaging done in June 2008, considerable chronic ischemic changes in the deep white matter and numerous old lacunar infarcts as previously noted. The patient has been cleared by physical therapy to return to [facility]. He is feeling well. He is steadier on his feet. He has been effectively treated for urinary tract infection after having four doses of IV antibiotics. DISCHARGE DIAGNOSES: 1. Fall. 2. Urinary tract infection. 3. Expressive aphasia. 4. History of CVA. 5. Chronic infarct to subacute infarct evident on CVA. 6. Diabetes mellitus type 2. 7. Physical deconditioning. DISCHARGE MEDICATIONS: - acetaminophen 650 mg by mouth twice a day and every 4 hours as needed for pain - albuterol sulfate two puffs inhaled every 4 hours as needed for shortness of breath - aspirin 81 mg daily - Dulcolax 10 mg per rectum daily as needed for constipation - Sinemet 25/100 one tablet by mouth three times a day - vitamin D3 5000 units by mouth daily - Plavix 75 mg daily - Jardiance 25 mg daily - Lexapro 5 mg daily - glipizide 5 mg daily - lisinopril 2.5 mg daily - metformin 1000 mg by mouth twice a day - metoprolol 50 mg by mouth twice a day - Milk of Magnesia 10 mL by mouth daily as needed for constipation - senna S two tablets by mouth daily - simvastatin 20 mg by mouth at bedtime - Fleet enema per rectum daily as needed for constipation - Flomax 0.4 mg sublingually by mouth daily DISCHARGE PLAN: To follow up with Dr. Serrano at [facility]. His activity should be as tolerated. His diet is pureed with nectar thickened liquids. edited: 02/14/2019 0740 tkf [id number]
== END 2019-02-13 14:11 | disposition home or self-care (01) | DRG 689 ==
LOC: M ED 21:11 → M ED INP 02-09 01:09 → M MSPAV 02-09 14:57
PROVIDERS: ADMIT Student in an Organized Health Care Education/Training Program; ATTEND Family Medicine
DX: N39.0 Urinary tract infection, site not specified (principal); I63.9 Cerebral infarction, unspecified; I50.32 Chronic diastolic (congestive) heart failure; E11.9 Type 2 diabetes mellitus without complications; Z79.82 Long term (current) use of aspirin; Z79.899 Other long term (current) drug therapy; I69.391 Dysphagia following cerebral infarction; I11.0 Hypertensive heart disease with heart failure; N40.0 Benign prostatic hyperplasia without lower urinary tract symptoms; Z87.891 Personal history of nicotine dependence; F32.9 Major depressive disorder, single episode, unspecified; F03.90 Unspecified dementia, unspecified severity, without behavioral disturbance, psychotic disturbance, mood disturbance, and anxiety; K59.00 Constipation, unspecified; E66.9 Obesity, unspecified

== ENCOUNTER → 2019-03-09 | Outpatient (REF) | payer MEDICARE, MEDICAID ==
[~2019-03-09] MED LIST changes: +ACET-907 PO; +ASPI81CH33 PO; +CARB25TA9 PO; +CLOP75TA2 PO; +DULC10SU2 PR; +ENEMENE PR; +FLOM0.4C39 PO; +GLIP5TAB8 PO; +LEXA5TAB13 PO; +LISI-1046 PO; +MOM30SS PO; +SENN1TAB41 PO; +SIMV20TA2 PO; +VITA500079 PO; +[UNRECOGNIZED DRUG - CODE] PO
[2019-03-09 07:54] LABS: HEMATOCRIT 46.3 % (42.0-52.0); HEMOGLOBIN 15.1 g/dl (13.5-17.5); MEAN CORPUSCULAR HEMOGLOBIN 30.7 pg (27.0-33.0); MEAN CORPUSCULAR HGB CONC 32.6 g/dl (32.0-36.5); MEAN CORPUSCULAR VOLUME 94.1 fl (80.0-96.0); PLATELET COUNT, AUTOMATED 204 10^3/uL (150-450); RED BLOOD COUNT 4.92 10^6/uL (4.30-6.10); WHITE BLOOD COUNT 9.4 10^3/uL (4.0-10.0)
== END ==
LOC: SKLAB5 12:07
PROVIDERS: ATTEND Family Medicine
DX: E11.9 Type 2 diabetes mellitus without complications (principal); D64.9 Anemia, unspecified

== ENCOUNTER → 2019-06-07 | Outpatient (REF) | payer MEDICARE, MEDICAID ==
[~2019-06-07] MED LIST changes: -ASPI1TAB20 PO; +ASPI325T57 PO; -SIMV20TA2 PO; +SIMV20TA22 PO; -SIMV40TA2 PO; +SIMV40TA20 PO
[2019-06-07 08:22] LABS: HEMATOCRIT 47.7 % (42.0-52.0); HEMOGLOBIN 15.4 g/dl (13.5-17.5); MEAN CORPUSCULAR HEMOGLOBIN 31.3 pg (27.0-33.0); MEAN CORPUSCULAR HGB CONC 32.3 g/dl (32.0-36.5); PLATELET COUNT, AUTOMATED 217 10^3/uL (150-450); RED BLOOD COUNT 4.92 10^6/uL (4.30-6.10); WHITE BLOOD COUNT 8.7 10^3/uL (4.0-10.0)
[2019-06-07 08:50] LABS: ALBUMIN 3.8 GM/DL (3.2-5.2); ALT/SGPT 10 U/L (12-78); BILIRUBIN,TOTAL 0.3 MG/DL (0.2-1.0); BLOOD UREA NITROGEN 19 MG/DL (7-18); CALCIUM LEVEL 9.8 MG/DL (8.8-10.2); CARBON DIOXIDE LEVEL 28 MEQ/L (21-32); CHLORIDE LEVEL 108 MEQ/L (98-107); CREATININE FOR GFR 0.71 MG/DL (0.70-1.30); GLOMERULAR FILTRATION RATE > 60.0 (>42); GLUCOSE, FASTING 83 MG/DL (70-100); POTASSIUM SERUM 4.3 MEQ/L (3.5-5.1); SODIUM LEVEL 143 MEQ/L (136-145); TOTAL PROTEIN 7.1 GM/DL (6.4-8.2)
== END ==
LOC: SKLAB5 08:25
PROVIDERS: ATTEND Family Medicine
DX: I10 Essential (primary) hypertension (principal); I67.9 Cerebrovascular disease, unspecified

== ENCOUNTER → 2019-07-12 | Outpatient (REF) | payer MEDICARE, MEDICAID ==
[~2019-07-12] MED LIST changes: +SIMV20TA2 PO; -SIMV20TA22 PO; +SIMV40TA2 PO; -SIMV40TA20 PO
[2019-07-12 10:54] LABS: HEMOGLOBIN A1c 5.9 %
== END ==
LOC: SKLAB5 07:47
PROVIDERS: ATTEND Family Medicine
DX: E11.9 Type 2 diabetes mellitus without complications (principal)

== ENCOUNTER → 2019-08-20 | Outpatient (REF) | payer MEDICARE, MEDICAID ==
[~2019-08-20] MED LIST changes: -SIMV20TA2 PO; +SIMV20TA22 PO; -SIMV40TA2 PO; +SIMV40TA20 PO
[2019-08-20 14:41] LABS: HEMATOCRIT 47.8 % (42.0-52.0); HEMOGLOBIN 15.6 g/dl (13.5-17.5); MEAN CORPUSCULAR HEMOGLOBIN 31.8 pg (27.0-33.0); MEAN CORPUSCULAR HGB CONC 32.6 g/dl (32.0-36.5); MEAN CORPUSCULAR VOLUME 97.4 fl (80.0-96.0); PLATELET COUNT, AUTOMATED 230 10^3/uL (150-450); RED BLOOD COUNT 4.91 10^6/uL (4.30-6.10)
[2019-08-20 15:09] LABS: BLOOD UREA NITROGEN 25 MG/DL (7-18); CALCIUM LEVEL 10.4 MG/DL (8.8-10.2); CARBON DIOXIDE LEVEL 30 MEQ/L (21-32); CHLORIDE LEVEL 109 MEQ/L (98-107); CREATININE FOR GFR 0.86 MG/DL (0.70-1.30); GLOMERULAR FILTRATION RATE > 60.0 (>42); GLUCOSE, FASTING 95 MG/DL (70-100); POTASSIUM SERUM 3.5 MEQ/L (3.5-5.1); SODIUM LEVEL 145 MEQ/L (136-145)
== END ==
LOC: SKLAB5 13:10
PROVIDERS: ATTEND Family Medicine
DX: R41.0 Disorientation, unspecified (principal)

== ENCOUNTER → 2019-09-06 | Outpatient (REF) | payer MEDICARE, MEDICAID ==
[2019-09-06 09:26] LABS: HEMATOCRIT 50.3 % (42.0-52.0); HEMOGLOBIN 16.1 g/dl (13.5-17.5); MEAN CORPUSCULAR HEMOGLOBIN 31.7 pg (27.0-33.0); PLATELET COUNT, AUTOMATED 187 10^3/uL (150-450); RED BLOOD COUNT 5.08 10^6/uL (4.30-6.10); WHITE BLOOD COUNT 8.9 10^3/uL (4.0-10.0)
== END ==
LOC: SKLAB5 07:41
PROVIDERS: ATTEND Family Medicine
DX: D64.9 Anemia, unspecified (principal)

== ENCOUNTER → 2019-10-10 | Outpatient (REF) | payer MEDICARE, MEDICAID | LOC: SKLAB5 12:05 | PROVIDERS: ATTEND Family Medicine | DX: J02.9 Acute pharyngitis, unspecified (principal) ==

== ENCOUNTER → 2019-12-06 | Outpatient (REF) | payer MEDICARE, MEDICAID ==
[2019-12-06 08:11] LABS: HEMATOCRIT 46.3 % (42.0-52.0); HEMOGLOBIN 15.4 g/dl (13.5-17.5); MEAN CORPUSCULAR HEMOGLOBIN 32.4 pg (27.0-33.0); MEAN CORPUSCULAR HGB CONC 33.3 g/dl (32.0-36.5); MEAN CORPUSCULAR VOLUME 97.3 fl (80.0-96.0); PLATELET COUNT, AUTOMATED 224 10^3/uL (150-450); RED BLOOD COUNT 4.76 10^6/uL (4.30-6.10); WHITE BLOOD COUNT 8.6 10^3/uL (4.0-10.0)
[2019-12-06 08:42] LABS: BLOOD UREA NITROGEN 14 MG/DL (7-18); CALCIUM LEVEL 9.4 MG/DL (8.8-10.2); CARBON DIOXIDE LEVEL 29 MEQ/L (21-32); CHLORIDE LEVEL 107 MEQ/L (98-107); CREATININE FOR GFR 0.56 MG/DL (0.70-1.30); GLOMERULAR FILTRATION RATE > 60.0 (>42); GLUCOSE, FASTING 82 MG/DL (70-100); POTASSIUM SERUM 4.2 MEQ/L (3.5-5.1); SODIUM LEVEL 143 MEQ/L (136-145)
== END ==
LOC: SKLAB5 08:25
PROVIDERS: ATTEND Family Medicine
DX: F03.90 Unspecified dementia, unspecified severity, without behavioral disturbance, psychotic disturbance, mood disturbance, and anxiety (principal)

== ENCOUNTER → 2020-01-10 | Outpatient (REF) | payer MEDICARE, MEDICAID | LOC: SKLAB5 07:34 | PROVIDERS: ATTEND Family Medicine | DX: E11.9 Type 2 diabetes mellitus without complications (principal) ==

== ENCOUNTER → 2020-01-16 | Outpatient (REF) ==
[~2020-01-16] MED LIST changes: -LISI-1046 PO; +LISI2.5T2 PO
== END ==
LOC: SKLAB5 14:43
PROVIDERS: ATTEND Internal Medicine
DX: Z03.818 Encounter for observation for suspected exposure to other biological agents ruled out (principal)

== ENCOUNTER → 2020-03-06 | Outpatient (REF) | payer MEDICARE, MEDICAID ==
[2020-03-06 08:18] LABS: HEMATOCRIT 45.3 % (42.0-52.0); HEMOGLOBIN 14.8 g/dl (13.5-17.5); MEAN CORPUSCULAR HEMOGLOBIN 32.5 pg (27.0-33.0); MEAN CORPUSCULAR HGB CONC 32.7 g/dl (32.0-36.5); MEAN CORPUSCULAR VOLUME 99.6 fl (80.0-96.0); PLATELET COUNT, AUTOMATED 220 10^3/uL (150-450); RED BLOOD COUNT 4.55 10^6/uL (4.30-6.10); WHITE BLOOD COUNT 9.7 10^3/uL (4.0-10.0)
== END ==
LOC: SKLAB5 08:09
PROVIDERS: ATTEND Family Medicine
DX: I10 Essential (primary) hypertension (principal); N40.0 Benign prostatic hyperplasia without lower urinary tract symptoms

== ENCOUNTER → 2020-06-05 | Outpatient (REF) | payer MEDICARE, MEDICAID ==
[~2020-06-05] MED LIST changes: +ACET650T61 PO; -TYLE650T35 PO
[2020-06-05 08:09] LABS: HEMATOCRIT 43.2 % (42.0-52.0); HEMOGLOBIN 14.4 g/dl (13.5-17.5); MEAN CORPUSCULAR HEMOGLOBIN 32.3 pg (27.0-33.0); MEAN CORPUSCULAR HGB CONC 33.3 g/dl (32.0-36.5); MEAN CORPUSCULAR VOLUME 96.9 fl (80.0-96.0); PLATELET COUNT, AUTOMATED 197 10^3/uL (150-450); RED BLOOD COUNT 4.46 10^6/uL (4.30-6.10); WHITE BLOOD COUNT 9.6 10^3/uL (4.0-10.0)
[2020-06-05 08:20] LABS: HEMOGLOBIN A1c 5.7 %
[2020-06-05 08:38] LABS: ALBUMIN 3.2 GM/DL (3.2-5.2); ALT/SGPT 10 U/L (12-78); BILIRUBIN,TOTAL 0.3 MG/DL (0.2-1.0); BLOOD UREA NITROGEN 19 MG/DL (7-18); CALCIUM LEVEL 9.4 MG/DL (8.8-10.2); CARBON DIOXIDE LEVEL 25 MEQ/L (21-32); CHLORIDE LEVEL 108 MEQ/L (98-107); CREATININE FOR GFR 0.51 MG/DL (0.70-1.30); GLOMERULAR FILTRATION RATE > 60.0 (>42); GLUCOSE, FASTING 106 MG/DL (70-100); POTASSIUM SERUM 4.5 MEQ/L (3.5-5.1); SODIUM LEVEL 141 MEQ/L (136-145); TOTAL PROTEIN 6.4 GM/DL (6.4-8.2)
== END ==
LOC: SKLAB5 07:22
DX: E11.9 Type 2 diabetes mellitus without complications (principal); I10 Essential (primary) hypertension; Z79.84 Long term (current) use of oral hypoglycemic drugs

== ENCOUNTER → 2020-07-23 | Outpatient (REF) | payer MEDICARE, MEDICAID | LOC: SKLAB5 07-22 15:02 → EDSTATUS 08-06 15:18 | DX: Z20.828 Contact with and (suspected) exposure to other viral communicable diseases (principal) ==

== ENCOUNTER → 2020-07-30 | Outpatient (REF) | payer MEDICARE, MEDICAID | LOC: SKLAB5 08:00 | PROVIDERS: ATTEND Internal Medicine | DX: Z20.828 Contact with and (suspected) exposure to other viral communicable diseases (principal) ==

== ENCOUNTER → 2020-08-06 | Outpatient (REF) | payer MEDICARE, MEDICAID | LOC: SKLAB5 08:00 | PROVIDERS: ATTEND Internal Medicine | DX: Z20.828 Contact with and (suspected) exposure to other viral communicable diseases (principal) ==

== ENCOUNTER → 2020-08-13 | Outpatient (REF) | payer MEDICARE, MEDICAID | LOC: SKLAB5 06:40 | PROVIDERS: ATTEND Family Medicine | DX: Z20.828 Contact with and (suspected) exposure to other viral communicable diseases (principal) ==

== ENCOUNTER → 2020-08-20 | Outpatient (REF) | payer MEDICARE, MEDICAID | LOC: SKLAB5 09:10 | DX: Z20.828 Contact with and (suspected) exposure to other viral communicable diseases (principal) ==

== ENCOUNTER → 2020-08-27 | Outpatient (REF) | payer MEDICARE, MEDICAID | LOC: SKLAB5 05:58 | DX: Z20.828 Contact with and (suspected) exposure to other viral communicable diseases (principal) ==

== ENCOUNTER → 2020-09-03 | Outpatient (REF) | payer MEDICARE, MEDICAID | LOC: SKLAB5 06:30 | DX: Z20.828 Contact with and (suspected) exposure to other viral communicable diseases (principal) ==

== ENCOUNTER → 2020-09-10 | Outpatient (REF) | payer MEDICARE, MEDICAID | LOC: SKLAB5 07:01 | DX: Z11.52 Encounter for screening for COVID-19 (principal) ==

== ENCOUNTER → 2020-09-11 | Outpatient (REF) | payer MEDICARE, MEDICAID ==
[2020-09-11 10:49] LABS: HEMATOCRIT 41.7 % (42.0-52.0); HEMOGLOBIN 13.4 g/dl (13.5-17.5); MEAN CORPUSCULAR HEMOGLOBIN 32.4 pg (27.0-33.0); MEAN CORPUSCULAR HGB CONC 32.1 g/dl (32.0-36.5); PLATELET COUNT, AUTOMATED 228 10^3/uL (150-450); RED BLOOD COUNT 4.13 10^6/uL (4.30-6.10); WHITE BLOOD COUNT 10.2 10^3/uL (4.0-10.0)
[2020-09-11 11:14] LABS: HEMOGLOBIN A1c 5.7 %
== END ==
LOC: SKLAB5 09:00
DX: D64.9 Anemia, unspecified (principal); E11.9 Type 2 diabetes mellitus without complications

== ENCOUNTER → 2020-09-17 | Outpatient (REF) | payer MEDICARE, MEDICAID | LOC: SKLAB5 06:40 | PROVIDERS: ATTEND Internal Medicine | DX: Z20.822 Contact with and (suspected) exposure to COVID-19 (principal) ==

== ENCOUNTER → 2020-09-24 | Outpatient (REF) | payer MEDICARE, MEDICAID | LOC: SKLAB5 07:16 | PROVIDERS: ATTEND Internal Medicine | DX: Z20.822 Contact with and (suspected) exposure to COVID-19 (principal) ==

== ENCOUNTER → 2020-10-01 | Outpatient (REF) | payer MEDICARE, MEDICAID | LOC: SKLAB5 07:27 | PROVIDERS: ATTEND Internal Medicine | DX: Z20.822 Contact with and (suspected) exposure to COVID-19 (principal) ==

== ENCOUNTER → 2020-10-08 | Outpatient (REF) | payer MEDICARE, MEDICAID | LOC: SKLAB5 07:20 | PROVIDERS: ATTEND Internal Medicine | DX: Z20.822 Contact with and (suspected) exposure to COVID-19 (principal) ==

== ENCOUNTER → 2020-10-15 | Outpatient (REF) | payer MEDICARE, MEDICAID | LOC: SKLAB5 06:23 | PROVIDERS: ATTEND Internal Medicine | DX: Z20.822 Contact with and (suspected) exposure to COVID-19 (principal) ==

== ENCOUNTER → 2020-10-22 | Outpatient (REF) | payer MEDICARE, MEDICAID | LOC: SKLAB5 06:34 | PROVIDERS: ATTEND Internal Medicine | DX: Z20.822 Contact with and (suspected) exposure to COVID-19 (principal) ==

== ENCOUNTER → 2020-10-29 | Outpatient (REF) | payer MEDICARE, MEDICAID | LOC: SKLAB5 08:00 | PROVIDERS: ATTEND Internal Medicine | DX: Z20.822 Contact with and (suspected) exposure to COVID-19 (principal) ==

== ENCOUNTER → 2020-11-06 | Outpatient (REF) | payer MEDICARE, MEDICAID | LOC: SKLAB5 06:04 | PROVIDERS: ATTEND Internal Medicine | DX: Z20.822 Contact with and (suspected) exposure to COVID-19 (principal) ==

== ENCOUNTER → 2020-11-12 | Outpatient (REF) | payer MEDICARE, MEDICAID | LOC: SKLAB5 06:29 | PROVIDERS: ATTEND Internal Medicine | DX: Z20.822 Contact with and (suspected) exposure to COVID-19 (principal) ==

== ENCOUNTER → 2020-11-19 | Outpatient (REF) | payer MEDICARE, MEDICAID | LOC: SKLAB5 07:34 | PROVIDERS: ATTEND Internal Medicine | DX: Z20.822 Contact with and (suspected) exposure to COVID-19 (principal) ==

== ENCOUNTER → 2020-12-04 | Outpatient (REF) | payer MEDICARE, MEDICAID ==
[2020-12-04 08:36] LABS: HEMATOCRIT 44.1 % (42.0-52.0); HEMOGLOBIN 14.2 g/dl (13.5-17.5); MEAN CORPUSCULAR HEMOGLOBIN 31.5 pg (27.0-33.0); MEAN CORPUSCULAR HGB CONC 32.2 g/dl (32.0-36.5); MEAN CORPUSCULAR VOLUME 97.8 fl (80.0-96.0); PLATELET COUNT, AUTOMATED 223 10^3/uL (150-450); RED BLOOD COUNT 4.51 10^6/uL (4.30-6.10); WHITE BLOOD COUNT 7.3 10^3/uL (4.0-10.0)
[2020-12-04 09:03] LABS: BLOOD UREA NITROGEN 20 MG/DL (7-18); CALCIUM LEVEL 9.2 MG/DL (8.8-10.2); CARBON DIOXIDE LEVEL 29 MEQ/L (21-32); CHLORIDE LEVEL 108 MEQ/L (98-107); CREATININE FOR GFR 0.73 MG/DL (0.70-1.30); GLOMERULAR FILTRATION RATE > 60.0 (>42); GLUCOSE, FASTING 115 MG/DL (70-100); POTASSIUM SERUM 4.1 MEQ/L (3.5-5.1); SODIUM LEVEL 142 MEQ/L (136-145)
== END ==
LOC: SKLAB5 14:33
DX: J44.9 Chronic obstructive pulmonary disease, unspecified (principal); F01.50 Vascular dementia, unspecified severity, without behavioral disturbance, psychotic disturbance, mood disturbance, and anxiety; E11.9 Type 2 diabetes mellitus without complications

== ENCOUNTER → 2020-12-05 | Outpatient (REF) | payer MEDICARE, MEDICAID | LOC: SKLAB5 07:12 | PROVIDERS: ATTEND Internal Medicine | DX: Z20.822 Contact with and (suspected) exposure to COVID-19 (principal) ==

== ENCOUNTER → 2020-12-09 | Outpatient (REF) | payer MEDICARE, MEDICAID | LOC: SKLAB5 06:50 | DX: E53.8 Deficiency of other specified B group vitamins (principal) ==

== ENCOUNTER → 2021-01-08 | Outpatient (REF) | payer MEDICARE, MEDICAID ==
[2021-01-08 15:27] LABS: MAU/CREAT RATIO 113.3 MCG/MG (0.0-30.0)
== END ==
LOC: SKLAB5 07:25
DX: E11.9 Type 2 diabetes mellitus without complications (principal)

== ENCOUNTER → 2021-03-05 | Outpatient (REF) | payer MEDICARE, MEDICAID, OTHER ==
[2021-03-05 09:38] LABS: HEMATOCRIT 45.1 % (42.0-52.0); HEMOGLOBIN 14.7 g/dl (13.5-17.5); MEAN CORPUSCULAR HEMOGLOBIN 31.3 pg (27.0-33.0); MEAN CORPUSCULAR HGB CONC 32.6 g/dl (32.0-36.5); MEAN CORPUSCULAR VOLUME 96.2 fl (80.0-96.0); PLATELET COUNT, AUTOMATED 210 10^3/uL (150-450); RED BLOOD COUNT 4.69 10^6/uL (4.30-6.10); WHITE BLOOD COUNT 7.5 10^3/uL (4.0-10.0)
== END ==
LOC: SKLAB5 08:54
DX: D64.9 Anemia, unspecified (principal)

== ENCOUNTER → 2021-06-11 | Outpatient (REF) | payer MEDICARE, MEDICAID, OTHER ==
[~2021-06-11] MED LIST changes: -LISI2.5T2 PO; +LISI2.5T9 PO
[2021-06-11 14:16] LABS: HEMATOCRIT 43.1 % (42.0-52.0); HEMOGLOBIN 14.5 g/dl (13.5-17.5); MEAN CORPUSCULAR HEMOGLOBIN 31.7 pg (27.0-33.0); MEAN CORPUSCULAR HGB CONC 33.6 g/dl (32.0-36.5); MEAN CORPUSCULAR VOLUME 94.1 fl (80.0-96.0); RED BLOOD COUNT 4.58 10^6/uL (4.30-6.10); WHITE BLOOD COUNT 8.5 10^3/uL (4.0-10.0)
[2021-06-11 14:17] LABS: PLATELET COUNT, AUTOMATED 207 10^3/uL (150-450)
[2021-06-11 14:41] LABS: HEMOGLOBIN A1c 5.9 %
[2021-06-11 15:51] LABS: ALBUMIN 3.4 GM/DL (3.2-5.2); ALT/SGPT 28 U/L (12-78); BILIRUBIN,TOTAL 0.4 MG/DL (0.2-1.0); BLOOD UREA NITROGEN 20 MG/DL (7-18); CALCIUM LEVEL 9.6 MG/DL (8.8-10.2); CARBON DIOXIDE LEVEL 27 MEQ/L (21-32); CHLORIDE LEVEL 106 MEQ/L (98-107); CREATININE FOR GFR 0.74 MG/DL (0.70-1.30); GLOMERULAR FILTRATION RATE > 60.0 (>42); GLUCOSE, FASTING 138 MG/DL (70-100); SODIUM LEVEL 141 MEQ/L (136-145); TOTAL PROTEIN 6.8 GM/DL (6.4-8.2)
== END ==
LOC: SKLAB5 07:00
PROVIDERS: ATTEND Internal Medicine
DX: E11.9 Type 2 diabetes mellitus without complications (principal); D64.9 Anemia, unspecified

== ENCOUNTER → 2021-06-23 | Outpatient (REF) | payer MEDICARE, MEDICAID, OTHER | LOC: SKLAB5 11:34 | PROVIDERS: ATTEND Internal Medicine | DX: Z20.822 Contact with and (suspected) exposure to COVID-19 (principal) ==

== ENCOUNTER → 2021-06-25 | Outpatient (REF) | payer MEDICARE, OTHER, MEDICAID | LOC: SKLAB2 20:16 | PROVIDERS: ATTEND Internal Medicine | DX: U07.1 COVID-19 (principal) ==

== ENCOUNTER → 2021-06-25 | Outpatient (REF) | payer MEDICARE, MEDICAID, OTHER | LOC: SKLAB5 09:15 | PROVIDERS: ATTEND Internal Medicine | DX: Z20.822 Contact with and (suspected) exposure to COVID-19 (principal) ==

== ENCOUNTER → 2021-06-29 | Outpatient (REF) | payer MEDICARE, OTHER, MEDICAID ==
[~2021-06-29] MED LIST changes: +ACETAMINOPHEN TAB 650MG DOSE (2X325MG) PO ONE; +ALBUTEROL 90 MCG/ACT 8GM HFA INHALER INH PRN; +ALBUTEROL SULFATE 2.5 MG/0.5 ML INH NEB SOLN INH PRN; +BAMLANIVIMAB 700 MG, ETESEVIMAB 1,400 MG in NS 250 ML IV ONE; +EPINEPHrine INJ 1 MG/ML 1ML AMP IM PRN; +NS 1,000 ML IV SCH; +diphenhydrAMINE 50MG/ML VIAL (J1200) IV ONE; +diphenhydrAMINE 50MG/ML VIAL (J1200) IV PRN; +methylPREDNISolone 125MG 2ML VIAL IV ONE; +methylPREDNISolone 125MG 2ML VIAL IV PRN
[2021-06-29 13:08] LABS: HEMATOCRIT 43.5 % (42.0-52.0); HEMOGLOBIN 14.8 g/dl (13.5-17.5); MEAN CORPUSCULAR HEMOGLOBIN 31.6 pg (27.0-33.0); MEAN CORPUSCULAR VOLUME 92.8 fl (80.0-96.0); PLATELET COUNT, AUTOMATED 178 10^3/uL (150-450); RED BLOOD COUNT 4.69 10^6/uL (4.30-6.10); WHITE BLOOD COUNT 4.1 10^3/uL (4.0-10.0)
[2021-06-29 15:00] LABS: ALT/SGPT 43 U/L (12-78); BILIRUBIN,TOTAL 0.3 MG/DL (0.2-1.0); BLOOD UREA NITROGEN 14 MG/DL (7-18); CALCIUM LEVEL 9.2 MG/DL (8.8-10.2); CARBON DIOXIDE LEVEL 27 MEQ/L (21-32); CHLORIDE LEVEL 105 MEQ/L (98-107); CREATININE FOR GFR 0.66 MG/DL (0.70-1.30); GLOMERULAR FILTRATION RATE > 60.0 (>42); GLUCOSE, FASTING 153 MG/DL (70-100); POTASSIUM SERUM 3.3 MEQ/L (3.5-5.1); SODIUM LEVEL 140 MEQ/L (136-145); TOTAL PROTEIN 6.4 GM/DL (6.4-8.2)
== END ==
LOC: SKLAB2 07:00
PROVIDERS: ATTEND Internal Medicine
DX: U07.1 COVID-19 (principal); Z79.899 Other long term (current) drug therapy

== ENCOUNTER → 2021-06-30 | Outpatient (REF) | payer MEDICARE, OTHER, MEDICAID ==
[~2021-06-30] MED LIST changes: -ACETAMINOPHEN TAB 650MG DOSE (2X325MG) PO ONE; -ALBUTEROL 90 MCG/ACT 8GM HFA INHALER INH PRN; -ALBUTEROL SULFATE 2.5 MG/0.5 ML INH NEB SOLN INH PRN; -BAMLANIVIMAB 700 MG, ETESEVIMAB 1,400 MG in NS 250 ML IV ONE; -EPINEPHrine INJ 1 MG/ML 1ML AMP IM PRN; -NS 1,000 ML IV SCH; -diphenhydrAMINE 50MG/ML VIAL (J1200) IV ONE; -diphenhydrAMINE 50MG/ML VIAL (J1200) IV PRN; -methylPREDNISolone 125MG 2ML VIAL IV ONE; -methylPREDNISolone 125MG 2ML VIAL IV PRN
[2021-06-30 08:16] LABS: BLOOD UREA NITROGEN 15 MG/DL (7-18); CALCIUM LEVEL 9.3 MG/DL (8.8-10.2); CARBON DIOXIDE LEVEL 27 MEQ/L (21-32); CHLORIDE LEVEL 107 MEQ/L (98-107); GLOMERULAR FILTRATION RATE > 60.0 (>42); GLUCOSE, FASTING 153 MG/DL (70-100); POTASSIUM SERUM 3.5 MEQ/L (3.5-5.1); SODIUM LEVEL 141 MEQ/L (136-145)
== END ==
LOC: SKLAB2 06:47
PROVIDERS: ATTEND Internal Medicine
DX: E87.6 Hypokalemia (principal)

== ENCOUNTER → 2021-07-01 | Outpatient (REF) | payer MEDICARE, OTHER, MEDICAID ==
[2021-07-01 11:02] LABS: HEMOGLOBIN 14.1 g/dl (13.5-17.5); MEAN CORPUSCULAR HEMOGLOBIN 31.2 pg (27.0-33.0); MEAN CORPUSCULAR HGB CONC 32.8 g/dl (32.0-36.5); MEAN CORPUSCULAR VOLUME 95.1 fl (80.0-96.0); PLATELET COUNT, AUTOMATED 180 10^3/uL (150-450); RED BLOOD COUNT 4.52 10^6/uL (4.30-6.10); WHITE BLOOD COUNT 7.4 10^3/uL (4.0-10.0)
[2021-07-01 11:30] LABS: ALBUMIN 2.8 GM/DL (3.2-5.2); ALT/SGPT 64 U/L (12-78); BILIRUBIN,TOTAL 0.2 MG/DL (0.2-1.0); BLOOD UREA NITROGEN 24 MG/DL (7-18); CALCIUM LEVEL 9.1 MG/DL (8.8-10.2); CARBON DIOXIDE LEVEL 29 MEQ/L (21-32); CHLORIDE LEVEL 109 MEQ/L (98-107); CREATININE FOR GFR 0.69 MG/DL (0.70-1.30); GLOMERULAR FILTRATION RATE > 60.0 (>42); GLUCOSE, FASTING 151 MG/DL (70-100); POTASSIUM SERUM 3.3 MEQ/L (3.5-5.1); SODIUM LEVEL 141 MEQ/L (136-145); TOTAL PROTEIN 6.8 GM/DL (6.4-8.2)
== END ==
LOC: SKLAB2 07:00
PROVIDERS: ATTEND Internal Medicine
DX: U07.1 COVID-19 (principal); Z79.899 Other long term (current) drug therapy

== ENCOUNTER → 2021-07-03 | Outpatient (REF) | payer MEDICARE, OTHER, MEDICAID ==
[2021-07-03 11:22] LABS: HEMATOCRIT 44.2 % (42.0-52.0); HEMOGLOBIN 14.9 g/dl (13.5-17.5); MEAN CORPUSCULAR HEMOGLOBIN 31.3 pg (27.0-33.0); MEAN CORPUSCULAR HGB CONC 33.7 g/dl (32.0-36.5); MEAN CORPUSCULAR VOLUME 92.9 fl (80.0-96.0); PLATELET COUNT, AUTOMATED 222 10^3/uL (150-450); RED BLOOD COUNT 4.76 10^6/uL (4.30-6.10)
[2021-07-03 12:53] LABS: ALBUMIN 3.3 GM/DL (3.2-5.2); ALT/SGPT 236 U/L (12-78); BILIRUBIN,TOTAL 0.7 MG/DL (0.2-1.0); BLOOD UREA NITROGEN 16 MG/DL (7-18); CALCIUM LEVEL 9.9 MG/DL (8.8-10.2); CARBON DIOXIDE LEVEL 28 MEQ/L (21-32); CHLORIDE LEVEL 106 MEQ/L (98-107); CREATININE FOR GFR 0.59 MG/DL (0.70-1.30); GLOMERULAR FILTRATION RATE > 60.0 (>42); GLUCOSE, FASTING 156 MG/DL (70-100); POTASSIUM SERUM 3.6 MEQ/L (3.5-5.1); SODIUM LEVEL 140 MEQ/L (136-145); TOTAL PROTEIN 7.6 GM/DL (6.4-8.2)
== END ==
LOC: SKLAB2 08:36
PROVIDERS: ATTEND Internal Medicine
DX: U07.1 COVID-19 (principal); Z79.899 Other long term (current) drug therapy

== ENCOUNTER → 2021-09-02 | Outpatient (REF) | payer MEDICARE, OTHER, MEDICAID | LOC: SKLAB5 11:09 | PROVIDERS: ATTEND Internal Medicine | DX: Z20.822 Contact with and (suspected) exposure to COVID-19 (principal) ==

== ENCOUNTER → 2021-09-17 | Outpatient (REF) | payer MEDICARE, OTHER, MEDICAID ==
[2021-09-17 08:51] LABS: HEMATOCRIT 42.9 % (42.0-52.0); HEMOGLOBIN 14.1 g/dl (13.5-17.5); MEAN CORPUSCULAR HEMOGLOBIN 31.3 pg (27.0-33.0); MEAN CORPUSCULAR HGB CONC 32.9 g/dl (32.0-36.5); MEAN CORPUSCULAR VOLUME 95.1 fl (80.0-96.0); PLATELET COUNT, AUTOMATED 243 10^3/uL (150-450); RED BLOOD COUNT 4.51 10^6/uL (4.30-6.10); WHITE BLOOD COUNT 10.6 10^3/uL (4.0-10.0)
== END ==
LOC: SKLAB5 07:00
PROVIDERS: ATTEND Internal Medicine
DX: D64.9 Anemia, unspecified (principal)

== ENCOUNTER → 2021-12-17 | Outpatient (REF) | payer MEDICARE, OTHER, MEDICAID ==
[2021-12-17 11:56] LABS: HEMATOCRIT 44.1 % (42.0-52.0); HEMOGLOBIN 14.9 g/dl (13.5-17.5); MEAN CORPUSCULAR HEMOGLOBIN 32.5 pg (27.0-33.0); MEAN CORPUSCULAR HGB CONC 33.8 g/dl (32.0-36.5); MEAN CORPUSCULAR VOLUME 96.1 fl (80.0-96.0); PLATELET COUNT, AUTOMATED 242 10^3/uL (150-450); RED BLOOD COUNT 4.59 10^6/uL (4.30-6.10); WHITE BLOOD COUNT 9.1 10^3/uL (4.0-10.0)
[2021-12-17 12:31] LABS: ALBUMIN 3.5 GM/DL (3.2-5.2); ALT/SGPT 30 U/L (12-78); BILIRUBIN,TOTAL 0.4 MG/DL (0.2-1.0); BLOOD UREA NITROGEN 24 MG/DL (7-18); CALCIUM LEVEL 9.9 MG/DL (8.8-10.2); CARBON DIOXIDE LEVEL 26 MEQ/L (21-32); CHLORIDE LEVEL 108 MEQ/L (98-107); GLOMERULAR FILTRATION RATE > 60.0 (>42); GLUCOSE, FASTING 227 MG/DL (70-100); POTASSIUM SERUM 3.6 MEQ/L (3.5-5.1); SODIUM LEVEL 143 MEQ/L (136-145)
[2021-12-17 13:18] LABS: HEMOGLOBIN A1c 6.5 %
== END ==
LOC: SKLAB5 09:00
PROVIDERS: ATTEND Internal Medicine
DX: E11.9 Type 2 diabetes mellitus without complications (principal); D64.9 Anemia, unspecified; I10 Essential (primary) hypertension

== ENCOUNTER → 2022-01-21 | Outpatient (REF) | payer MEDICARE, OTHER, MEDICAID | LOC: SKLAB5 12:25 | PROVIDERS: ATTEND Internal Medicine | DX: E11.9 Type 2 diabetes mellitus without complications (principal); Z53.9 Procedure and treatment not carried out, unspecified reason ==

== ENCOUNTER → 2022-04-07 | Outpatient (REF) | payer MEDICARE, OTHER, MEDICAID ==
[2022-04-07 10:15] LABS: HEMATOCRIT 53.5 % (42.0-52.0); HEMOGLOBIN 16.1 g/dl (13.5-17.5); MEAN CORPUSCULAR HEMOGLOBIN 31.5 pg (27.0-33.0); MEAN CORPUSCULAR HGB CONC 30.1 g/dl (32.0-36.5); MEAN CORPUSCULAR VOLUME 104.7 fl (80.0-96.0); RED BLOOD COUNT 5.11 10^6/uL (4.30-6.10); WHITE BLOOD COUNT 20.2 10^3/uL (4.0-10.0)
[2022-04-07 10:49] LABS: CALCIUM LEVEL 10.4 MG/DL (8.8-10.2); CREATININE FOR GFR 1.54 MG/DL (0.70-1.30); GLOMERULAR FILTRATION RATE 47.2 (>42); POTASSIUM SERUM 3.7 MEQ/L (3.5-5.1)
[2022-04-07 10:57] LABS: PLATELET COUNT, AUTOMATED 143 10^3/uL (150-450)
== END ==
LOC: SKLAB5 09:12
PROVIDERS: ATTEND Nurse Practitioner
DX: R68.89 Other general symptoms and signs (principal); Z79.899 Other long term (current) drug therapy

== ENCOUNTER → 2022-04-08 | Outpatient (REF) | payer MEDICARE, OTHER, MEDICAID ==
[2022-04-08 10:25] LABS: HEMATOCRIT 47.3 % (42.0-52.0); HEMOGLOBIN 14.4 g/dl (13.5-17.5); MEAN CORPUSCULAR HEMOGLOBIN 30.7 pg (27.0-33.0); MEAN CORPUSCULAR HGB CONC 30.4 g/dl (32.0-36.5); MEAN CORPUSCULAR VOLUME 100.9 fl (80.0-96.0); PLATELET COUNT, AUTOMATED 146 10^3/uL (150-450); RED BLOOD COUNT 4.69 10^6/uL (4.30-6.10); WHITE BLOOD COUNT 11.7 10^3/uL (4.0-10.0)
[2022-04-08 11:23] LABS: BLOOD UREA NITROGEN 46 MG/DL (7-18); CALCIUM LEVEL 9.9 MG/DL (8.8-10.2); CARBON DIOXIDE LEVEL 28 MEQ/L (21-32); CHLORIDE LEVEL 126 MEQ/L (98-107); CREATININE FOR GFR 1.22 MG/DL (0.70-1.30); GLOMERULAR FILTRATION RATE > 60.0 (>42); GLUCOSE, FASTING 418 MG/DL (70-100); POTASSIUM SERUM 3.3 MEQ/L (3.5-5.1); SODIUM LEVEL 160 MEQ/L (136-145)
== END ==
LOC: SKLAB5 11:26
PROVIDERS: ATTEND Nurse Practitioner
DX: E86.0 Dehydration (principal)

== ENCOUNTER → 2022-04-09 | Outpatient (REF) | payer MEDICARE, OTHER, MEDICAID ==
[2022-04-09 10:48] LABS: HEMATOCRIT 47.8 % (42.0-52.0); HEMOGLOBIN 14.5 g/dl (13.5-17.5); MEAN CORPUSCULAR HEMOGLOBIN 30.5 pg (27.0-33.0); MEAN CORPUSCULAR HGB CONC 30.3 g/dl (32.0-36.5); MEAN CORPUSCULAR VOLUME 100.4 fl (80.0-96.0); PLATELET COUNT, AUTOMATED 134 10^3/uL (150-450); RED BLOOD COUNT 4.76 10^6/uL (4.30-6.10); WHITE BLOOD COUNT 9.9 10^3/uL (4.0-10.0)
[2022-04-09 11:36] LABS: BLOOD UREA NITROGEN 35 MG/DL (7-18); CALCIUM LEVEL 9.4 MG/DL (8.8-10.2); CARBON DIOXIDE LEVEL 25 MEQ/L (21-32); CHLORIDE LEVEL 122 MEQ/L (98-107); CREATININE FOR GFR 1.13 MG/DL (0.70-1.30); GLOMERULAR FILTRATION RATE > 60.0 (>42); GLUCOSE, FASTING 459 MG/DL (70-100); POTASSIUM SERUM 2.9 MEQ/L (3.5-5.1); SODIUM LEVEL 154 MEQ/L (136-145)
== END ==
LOC: SKLAB5 10:36
PROVIDERS: ATTEND Nurse Practitioner
DX: E86.0 Dehydration (principal)

== ENCOUNTER → 2022-04-12 | Outpatient (REF) | payer MEDICARE, OTHER, MEDICAID ==
[2022-04-12 09:33] LABS: HEMATOCRIT 47.7 % (42.0-52.0); HEMOGLOBIN 14.5 g/dl (13.5-17.5); MEAN CORPUSCULAR HEMOGLOBIN 30.9 pg (27.0-33.0); MEAN CORPUSCULAR HGB CONC 30.4 g/dl (32.0-36.5); MEAN CORPUSCULAR VOLUME 101.7 fl (80.0-96.0); PLATELET COUNT, AUTOMATED 137 10^3/uL (150-450); RED BLOOD COUNT 4.69 10^6/uL (4.30-6.10); WHITE BLOOD COUNT 16.4 10^3/uL (4.0-10.0)
[2022-04-12 09:58] LABS: BLOOD UREA NITROGEN 39 MG/DL (7-18); CALCIUM LEVEL 9.1 MG/DL (8.8-10.2); CARBON DIOXIDE LEVEL 31 MEQ/L (21-32); CHLORIDE LEVEL 121 MEQ/L (98-107); CREATININE FOR GFR 1.15 MG/DL (0.70-1.30); GLOMERULAR FILTRATION RATE > 60.0 (>42); GLUCOSE, FASTING 322 MG/DL (70-100); POTASSIUM SERUM 4.1 MEQ/L (3.5-5.1); SODIUM LEVEL 157 MEQ/L (136-145)
== END ==
LOC: SKLAB5 12:06
PROVIDERS: ATTEND Nurse Practitioner Family
DX: E87.0 Hyperosmolality and hypernatremia (principal); D72.829 Elevated white blood cell count, unspecified